=== PATIENT | female | born 1980 | race Caucasian/White ===

== ENCOUNTER 2019-04-23 13:33 | Emergency (ER) | payer MEDICAID, SELFPAY ==
[2019-04-23 13:55] VITALS: BP 136/116; PULSE 107; RESP 20; TEMP 37; O2SAT 99; BMI 33.6
[2019-04-23 14:56] LABS: Basophils % 0.6 %; Eosinophils # 0.1 10^3/uL (0.0-0.8); Eosinophils % 2.3 %; Hematocrit 40.7 % (37.0-47.0); Hemoglobin 12.4 g/dL (11.5-15.3); Lymphocytes # 1.6 10^3/uL (0.8-4.8); Lymphocytes % 31.2 %; Mean Corpuscular HGB Conc 30.5 g/dL (30.0-36.0); Mean Corpuscular Hemoglobin 25.4 pg (28.0-34.0); Mean Corpuscular Volume 83.4 fL (81-99); Mean Platelet Volume 10.4 fL (7.4-10.4); Monocytes # 0.3 10^3/uL (0.2-0.9); Monocytes % 6.2 %; Neutrophils # 3.1 10^3/uL (1.8-7.7); Neutrophils % 59.3 %; Nucleated Red Blood Cells % 0 %; Platelet Count 251 10^3/cmm (130-400); Red Blood Count 4.88 10^6/uL (4.1-5.3); Red Cell Distribution Width 14.7 % (12.1-15.1); White Blood Count 5.2 10^3/uL (4.0-10.0)
[2019-04-23 15:11] LABS: Alanine Aminotransferase 16 U/L (0-33); Albumin Level 4.4 g/dL (3.5-5.2); Alkaline Phosphatase 107 IU/L (35-105); Anion Gap 14.7 (5-19); Aspartate Amino Transferase 23 U/L (0-32); Blood Urea Nitrogen 7 mg/dL (6-20); Calcium 9.6 mg/Dl (8.6-10.0); Carbon Dioxide 26 mmol/L (22-29); Chloride 101 mmol/L (98-107); Globulin 3.6 g/dL (1.3-4.6); Glucose 99 mg/dL (74-109); Lipase 40 U/L (13-60); Potassium 3.7 mmol/L (3.5-5.1); Sodium 138 mmol/L (136-145); Total Bilirubin 0.2 mg/dL (0.15-1.2)
[2019-04-23 15:14] LABS: Add Urine Microscopic? YES; Bilirubin Urine Neg (NEGATIVE); Blood Urine 2+ (Negative); Glucose Urine UA Norm (Normal); Ketones Urine Negative (Negative); Leukocyte Esterase Urine Negative (Negative); Nitrate Urine Negative (Negative); Protein Urine Neg (Negative); Urine Appearance Clear (CLEAR); Urine Color Yellow (Yellow); Urobilinogen Urine Norm (Negative); pH Urine 5 (5-7)
[2019-04-23 15:21] LABS: Add Urine Culture? No; Bacteria Urine TRACE; RBC Urine 0-4 /hpf (0-2); Squamous Epithelial Cell Urine 0-4 (0-5)
--- NOTE | 2019-04-23 16:09 | ED_ITS ---
Entered by Kelsey Pacheco, acting as scribe for Ahsan Page DO Apr 23, 2019 13:33 HPI - Abdominal Pain General: Chief Complaint: Abdominal Pain Stated Complaint: abd pain Time Seen by Provider: 04/23/19 16:08 History of Present Illness: HPI narrative: 39 yo female presents with abd pain. Pt states that she has had pain since Monday, pt states that she couldn't eat anything. Pt states that she noticed that she has pain in the epigastric region. pt states that she ate some popcorn yesterday and felt like she had pressure when she ate in her throat. Pt states that she has a history of acid reflux. Pt states that she had an EGD done a few weeks ago, was diagnosed with hiatal hernia. Pt states that she hasn't eaten a real meal since Monday. Pt states that she had diarrhea yesterday, it was dark. MD elicited complaint: abdominal pain Pertinent past history: other (refulx) Onset (ago): day(s) (4 ) Pain Consistency: constant Location: Epigastric Severity: moderate Quality: sharp Radiation: none Exacerbating factors: eating Relieving factors: nothing Associated Symptoms: Reports diarrhea and nausea; Denies chills, dysuria and fever(s) Review of Systems General: Reports: 10 or more systems reviewed and unremarkable except in HPI and below Const: Reports: change in appetite; Denies: fever, chills, body aches, change in weight or fatigue Eyes: Denies: change in vision, blurry vision, blind spots or photophobia ENMT: Denies: throat pain, uvular edema, enlarged tonsils or painful swallowing Card: Denies: chest pain, palpitations or irregular heart rhythm Resp: Denies: shortness of breath, productive cough or non-productive cough GI: Reports: nausea and diarrhea : Denies: flank pain, difficulty urinating or painful urination Musc: Denies: neck pain, back pain, extremity pain or extremity swelling Skin/Breast: Denies: rash, itching, redness or sensitivity to light Neuro: Denies: headache, numbness in extremities or weakness in extremities Psych: Denies: anxiety, depression, mood swings or panic attacks Endo: Denies: excessive urination, excessive thirst, tired all the time or excessive sweating Jimmy/Lymph: Denies: easy bruising, easy bleeding or petechiae All/Imm: Denies: hives, throat swelling or tongue swelling PFSH ED PFSH: Statuses (acute, chronic, etc) shown below reflect problem list status as previously entered and may not be historically accurate Medical History Acid reflux (Acute) Hiatal hernia (Acute) Surgical History History of esophagogastroduodenoscopy (EGD) (Acute) Social History Smoking and tobacco status: never smoked Physical Exam Const: COMMON NORMALS: no apparent distress, average body habitus, oriented x3, no limitations, healthy appearing, alert and well nourished HENMT: COMMON NORMALS: normocephalic, head/scalp atraumatic, hearing grossly normal bilaterally, external ears normal, EAC's normal, TM's normal bilaterally, external nose normal, nasal mucous membranes and turbinates normal, moist oral mucous membranes, oropharynx normal, dentition normal and gingiva normal HEAD & SCALP: normocephalic and atraumatic NOSE: external nose normal and nasal mucous membranes and turbinates normal EXTERNAL EAR: Yes external ears normal EXTERNAL AUDITORY CANAL: EAC's normal TYMPANIC MEMBRANE: TM's normal bilaterally THROAT: no uvular edema Eye: COMMON NORMALS: PERRL, EOMs intact bilaterally, conjunctivae normal, no scleral icterus, no papilledema, normal visual garcia by confrontation and fundi normal bilaterally CONJUNCTIVA: Yes conjunctivae normal PUPIL: Yes PERRL DIRECT OPHTHALMOSCOPY: Yes no papilledema and Yes fundi normal bilaterally Neck/C-Spine: COMMON NORMALS: full ROM, no lymphadenopathy, supple, no meningeal signs, no JVD, thyroid normal and no carotid bruits THYROID: thyroid normal Chest: COMMONS NORMALS: inspection of chest normal and palpation of chest normal Resp: COMMON NORMALS: normal respiratory effort, no retractions, no use of accessory muscles, clear to auscultation bilaterally and percussion normal AUSCULTATION: clear to auscultation bilaterally PERCUSSION: percussion normal Cardio: COMMON NORMALS: no JVD, regular rate, regular rhythm, S1 normal heart sound, S2 normal heart sound, no gallops, no clicks, no murmurs, no rub and peripheral pulses 2+ throughout RATE: regular rate RHYTHM: regular rhythm HEART SOUNDS: S1 normal and S2 normal PERIPHERAL PULSES: pulses 2+ throughout GI: COMMON NORMALS: normal to inspection, nondistended, normoactive bowel sounds, soft to palpation, non-tender, no hepatosplenomegaly, no masses and no bruits PALPATION: Yes soft and Yes no hepatosplenomegaly : COMMON NORMALS: Yes no CVA tenderness and Yes external appearance normal BLADDER/KIDNEY EXAM: Yes no CVA tenderness Back/Pelvis: COMMON NORMALS: no CVA tenderness, thoracic and lumbar spine normal to inspection, no thoracic nor lumbar tenderness, thoraco-lumbar ROM normal and straight leg raise negative bilaterally Extremity: COMMON NORMALS: normal to inspection, full ROM, normal capillary refill, no joint enlargement, no clubbing, cyanosis or edema, no calf tenderness and no pedal edema Neuro: COMMON NORMALS: oriented x3 SENSORIUM/ORIENTATION: Yes alert MENINGEAL SIGNS: Yes no meningeal signs Skin: COMMON NORMALS: no rashes or lesions noted, no wounds, skin turgor normal, no jaundice, no petechiae and no mottling GENERAL SKIN EXAM: no rashes or lesions noted and turgor normal Course Vital Signs: Vital signs: Vital Signs Temperature 98.6 F 04/23/19 13:55 Pulse Rate 107 H 04/23/19 13:55 Respiratory Rate 20 H 04/23/19 13:55 Blood Pressure 136/116 04/23/19 13:55 Pulse Oximetry 99 04/23/19 13:55 MDM - Abdominal Pain Lab Data: Labs: Lab Results 04/23/19 04/23/19 04/23/19 Range/Units 14:32 14:48 14:48 WBC 5.2 (4.0-10.0) 10^3/ uL RBC 4.88 (4.1-5.3) 10^6/u L Hgb 12.4 (11.5-15.3) g/dL Hct 40.7 (37.0-47.0) % MCV 83.4 (81-99) fL MCH 25.4 L (28.0-34.0) pg MCHC 30.5 (30.0-36.0) g/dL RDW 14.7 (12.1-15.1) % Plt Count 251 (130-400) 10^3/c mm MPV 10.4 (7.4-10.4) fL Neut % (Auto) 59.3 % Lymph % (Auto) 31.2 % [place] % (Auto) 6.2 % Eos % (Auto) 2.3 % Baso % (Auto) 0.6 % Neut # (Auto) 3.1 (1.8-7.7) 10^3/u L Lymph # (Auto) 1.6 (0.8-4.8) 10^3/u L [place] # (Auto) 0.3 (0.2-0.9) 10^3/u L Eos # (Auto) 0.1 (0.0-0.8) 10^3/u L Baso # (Auto) 0.0 (0.0-0.1) 10^3/u L Nucleated RBC % (a uto) 0 % Nucleated RBCs # 0.0 /100WBC Sodium 138 (136-145) mmol/L Potassium 3.7 (3.5-5.1) mmol/L Chloride 101 (98-107) mmol/L Carbon Dioxide 26 (22-29) mmol/L Anion Gap 14.7 (5-19) BUN 7 (6-20) mg/dL Creatinine 0.9 (0.5-0.9) mg/dL GFR Calculation 69.0 L (90-130) mL/min Glucose 99 (74-109) mg/dL Calcium 9.6 (8.6-10.0) mg/Dl Total Bilirubin 0.2 (0.15-1.2) mg/dL AST 23 (0-32) U/L ALT 16 (0-33) U/L Alkaline Phosphata se 107 H (35-105) IU/L Total Protein 8.0 (6.6-8.7) g/dL Albumin 4.4 (3.5-5.2) g/dL Globulin 3.6 (1.3-4.6) g/dL Lipase 40 (13-60) U/L Urine Color Yellow (Yellow) Urine Appearance Clear (CLEAR) Urine pH 5 (5-7) Ur Specific Gravit y 1.020 (1.005-1.030) Urine Protein Neg (Negative) Urine Glucose (UA) Norm (Normal) Urine Ketones Negative (Negative) Urine Occult Blood 2+ H (Negative) Urine Nitrate Negative (Negative) Urine Bilirubin Neg (NEGATIVE) Urine Urobilinogen Norm (Negative) mg/dL Ur Leukocyte Melina ase Negative (Negative) Urine RBC 0-4 H (0-2) /hpf Urine WBC None (0-5) /hpf Ur Squamous Epith Cells 0-4 H (0-5) Urine Bacteria Trace (NONE) Discharge Plan Discharge Patient Disposition: Home, Self-Care Clinical Impression: Hiatal hernia Acid reflux Qualifiers: Esophagitis presence: with esophagitis Qualified Code(s): K21.0 - Gastro- esophageal reflux disease with esophagitis Gastritis Qualifiers: Gastritis type: unspecified gastritis Chronicity: chronic Gastritis bleeding: without bleeding Qualified Code(s): K29.50 - Unspecified chronic gastritis without bleeding Condition: Stable Prescriptions: New Carafate 100 mg/mL suspension 10 ml PO Q6H 56 Days Qty: 2240 RF: 0 Discharge Orders: Discharge Order (Routine); Ordered 04/23/19 Ordered By: Ahsan Page Referrals: Jose Fulton MD [Primary Care Provider] - Discharge Diet: As Directed Discharge Activity: Resume usual activity Patient Instructions: Hiatal Hernia (ED), Gastroesophageal Reflux Disease (ED) Coding Level of Care Code ED Communications Tower Climber for Chg Fwd Exam Problem Focused The documentation recorded by the Junior ordaz Kialy, accurately reflects the service I personally performed and the decisions made by Kaylee varela Donald P, DO Apr 23, 2019 13:33
--- NOTE | 2019-04-23 16:31 | PC.NURSE ---
Patient reports that she has had abdominal pain since Monday morning. Patient states that the pain is in the center upper abdomen. Patient reports some nausea with the abdominal pain. Patient denies all other symptoms.
[2019-04-23 16:33] VITALS: BP 118/83; PULSE 94; RESP 18; O2SAT 99
== END 2019-04-23 16:34 | disposition home or self-care (01) ==
PROVIDERS: Physician Assistant; Emergency Provider Family Medicine; PCP Internal Medicine
DX: K44.9 Diaphragmatic hernia without obstruction or gangrene (principal); K21.0 Gastro-esophageal reflux disease with esophagitis; K29.50 Unspecified chronic gastritis without bleeding
CPT/HCPCS: 36415; 80053; 81003; 83690; 85025; 99282

== ENCOUNTER → 2019-05-02 16:14 | Outpatient (BNVA) | payer SELFPAY | PROVIDERS: PCP Internal Medicine; Visit Provider Nurse Practitioner Family | DX: R39.9 Unspecified symptoms and signs involving the genitourinary system (principal) | CPT/HCPCS: 81001; 87077; 87086; 87186 ==

== ENCOUNTER → 2019-08-10 12:45 | Outpatient (BNVA) | payer OTHER, SELFPAY | PROVIDERS: PCP Internal Medicine; Visit Provider Nurse Practitioner Family | DX: M25.512 Pain in left shoulder (principal); M25.522 Pain in left elbow; S59.902A Unspecified injury of left elbow, initial encounter; X58.XXXA Exposure to other specified factors, initial encounter | CPT/HCPCS: 73030; 73080 ==

== ENCOUNTER 2022-01-10 19:09 | Emergency (ER) | payer OTHER, SELFPAY ==
[2022-01-10 19:19] VITALS: BP 117/78; PULSE 79; RESP 18; TEMP 36.8; O2SAT 97; BMI 38.4
--- NOTE | 2022-01-10 21:11 | ED_ITS ---
HPI - Wound/Laceration General: Chief Complaint: Wound/Laceration Stated Complaint: sent by PCP due to cyst Time Seen by Provider: 01/10/22 21:10 History of Present Illness: 41-year-old female comes in today for complaints of cyst to the left outer labia. Patient was seen at primary care's office and they were setting her up for [facility] [employer] [employer] treatment but also said that if it got uncontrollable pain she could come to the ER. Patient has not yet started antibiotics or any other treatment and just came to the ER for evaluation and treatment. Patient was prescribed antibiotics but does not know what antibiotics were. Patient appears nontoxic. Patient appears in mild to moderate pain. Associated symptoms: Denies fever(s) Review of Systems Const: Denies: fever(s) : Reports: other (Cyst to the left labia) [facility] ED PFSH: Medical History (Updated 01/10/22 @ 21:34 by MICHELLE Francisco) Acid reflux Hiatal hernia Surgical History (Updated 05/02/19 @ 15:22 by Hui Terrell LPN, RT) History of esophagogastroduodenoscopy (EGD) Family History (Updated 05/02/19 @ 15:23 by Hui Terrell LPN, RT) Father Cancer bladder, prostate Sister Cancer breast Social History Smoking and tobacco status: current every day smoker cigarettes Packs smoked per day: 1 Years cigarettes smoked: 20 Alcohol intake: current Alcohol intake frequency: holidays/special occasions only Adopted: No Caregiver/support person: No Lives independently: No Household members: significant other and family Housing: House Marital status: Single Number of children: 1 service: No Current occupational status: unemployed History of recent travel: No Current gender identity: Female Female Reproductive History: Date of last menstrual period: 12/15/21 Physical Exam Const: COMMON NORMALS: no acute distress HENMT: COMMON NORMALS: normocephalic HEAD & SCALP: normocephalic Neck/C-Spine: COMMON NORMALS: full ROM Resp: COMMON NORMALS: normal respiratory effort and clear to auscultation bilaterally AUSCULTATION: clear to auscultation bilaterally Cardio: COMMON NORMALS: regular rate RATE: regular rate : EXTERNAL FEMALE EXAM: Yes external swelling (Abscess noted to the outer labia on left side.) Extremity: COMMON NORMALS: normal to inspection Skin: COMMON NORMALS: no rashes or lesions noted GENERAL SKIN EXAM: no rashes or lesions noted Procedures Abscess I/D Site: other (Outer labia left side) Side (if applicable): left Local Anesthetic: lidocaine 2% Amount of anesthesia used (mL): 2 Technique: incised with #11 blade Amount of fluid expressed (mL): 2 Irrigation: Yes Packing used?: none Course Vital Signs: Vital signs: Vital Signs Temperature 98.2 F 01/10/22 19:19 Pulse Rate 79 01/10/22 19:19 Respiratory Rate 18 01/10/22 19:19 Blood Pressure 117/78 01/10/22 19:19 Pulse Oximetry 97 01/10/22 19:19 Oxygen Delivery Me thod 01/10/22 19:19 MDM - Wound/Laceration Medical Decision Making 41-year-old female comes in today with an abscess to the outer labia on the left side. On exam there is some mild swelling and induration to the tissue that is approximately 3 cm with a central 1 cm nodule. Differential diagnosis includes inclusion of cyst, abscess, cellulitis. Under local anesthetic a 1 cm incision was made with purulent drainage and mild bleeding from site. Patient tolerated well. Patient was treated for pain with fentanyl 50 mcg and 600 mg of clindamycin. Patient will be continued on hydrocodone for pain and oral antibiotics as prescribed from her primary care provider. Reviewed exam with patient with recommendations for follow-up. Patient reported understanding and agreed to plan. Discharge Plan Discharge Patient Disposition: Home Clinical Impression: Labial abscess Condition: Stable Prescriptions: New hydrocodone-acetaminophen 5-325 mg tablet 1 tab PO Q8H PRN (Reason: pain) Qty: 5 0RF No Action omeprazole 20 mg capsule,delayed release(DR/EC) 20 mg PO BID buspirone 15 mg tablet 15 mg PO BID Chantix Continuing Month Box 1 mg tablet 1 mg PO BID tizanidine [Zanaflex] 2 mg capsule 2 mg PO TID PRN (Reason: muscle spasticity) Qty: 14 0RF Discharge Orders: Discharge ED (Routine); Ordered 01/10/22 Ordered By: Jeremias Cueva Referrals: Jose Fulton MD [Primary Care Provider] - Discharge Diet: Usual diet Discharge Activity: Increase activity as tolerated Patient Instructions: Abscess Incision and Drainage (DC), Opioid Safety Activity Restrictions/Additional Instructions: Warm moist packs. Warm water soaks. Use the peripads to catch drainage. Drink plenty of water with antibiotic. Take antibiotic as directed until complete. Use acetaminophen and ibuprofen for pain. Use hydrocodone for severe pain. Follow-up with primary care as needed. Return to the ER for high fever greater than 100.4, inability to hold fluids down, or new concerns. Coding Level of Care Code ED Weed Thinner for Chg Fwd Exam Detailed
[2022-01-10] MEDS: clindamycin 600 MG/50 ML PREMIX 100 MG IV (21:15)
[2022-01-10] MEDS: fentaNYL 50 mcg/mL INJ 2mL IVP (21:15)
== END 2022-01-10 22:19 | disposition home or self-care (01) ==
PROVIDERS: Emergency Provider Nurse Practitioner Family; PCP Internal Medicine
DX: N76.4 Abscess of vulva (principal); F17.210 Nicotine dependence, cigarettes, uncomplicated
CPT/HCPCS: 56405; 96365; 96375; 99284; J3010; J3490

== ENCOUNTER 2022-02-19 17:40 | Emergency (ER) | payer OTHER, SELFPAY ==
[2022-02-19 18:08] VITALS: BP 144/94; PULSE 85; RESP 14; TEMP 37.2; O2SAT 95; BMI 38.0
--- NOTE | 2022-02-19 19:49 | ED_ITS ---
HPI - Female Genitourinary General: Chief complaint: Urogenital-Female Stated complaint: pain in the Vagina Time Seen by Provider: 02/19/22 19:19 History of Present Illness: Patient is a 42-year-old female comes to the ED with vaginal abscess. Patient was seen here for same complaint back on January 10. She states that over the past week she has developed an abscess on her right and left labia. She rates the pain currently a 10 out of 10. Left labia abscess is larger and more painful than the one on the right. Patient also reports tender red lesion on left thigh as well. Associated symptoms: Deny abdominal pain, headache(s) or nausea Date of Last Menstrual Period: 12/15/21 Review of Systems Const: Denies: fever(s), chills or fatigue Eyes: Denies: change in vision or eye discomfort ENMT: Denies: throat pain, odynophagia, nasal discharge or nasal congestion Card: Denies: chest pain, palpitations, edema, swelling of feet/ankles, dyspnea on exertion or orthopnea Resp: Denies: dyspnea, productive cough or non-productive cough GI: Denies: abdominal pain, nausea, vomiting, diarrhea, constipation or hematochezia : Reports: genital lesions (Vaginal abscess); Denies: flank pain, dysuria or hematuria Musc: Denies: neck pain, back pain or extremity swelling Skin/Breast: Denies: rash or new lesions Neuro: Denies: headache(s), numbness in extremities or weakness in extremities PFSH ED PFSH: Medical History Acid reflux Hiatal hernia Surgical History History of esophagogastroduodenoscopy (EGD) Family History Father Cancer bladder, prostate Sister Cancer breast Social History Smoking and tobacco status: current every day smoker cigarettes Packs smoked per day: 1 Years cigarettes smoked: 20 Alcohol intake: current Alcohol intake frequency: holidays/special occasions only Adopted: No Caregiver/support person: No Lives independently: No Household members: significant other and family Housing: House Marital status: Single Number of children: 1 service: No Current occupational status: unemployed History of recent travel: No Current gender identity: Female Female Reproductive History: Date of last menstrual period: 12/15/21 Physical Exam Const: COMMON NORMALS: no acute distress, patient oriented x3 and alert GENERAL APPEARANCE: cooperative HENMT: COMMON NORMALS: normocephalic HEAD & SCALP: normocephalic MOUTH: Normal oral and palatal mucosa present THROAT: posterior oropharynx normal and uvula midline Neck/C-Spine: COMMON NORMALS: supple GENERAL: Yes normal visual inspection Resp: COMMON NORMALS: normal respiratory effort, No retractions, No use of accessory muscles and clear to auscultation bilaterally AUSCULTATION: clear to auscultation bilaterally Cardio: COMMON NORMALS: regular rate, regular rhythm, S1 normal heart sound present, S2 normal heart sound present, No gallops present (Cardio), No clicks present (Cardio), No murmurs present (Cardio) and Peripheral pulses 2+ throughout RATE: regular rate RHYTHM: regular rhythm HEART SOUNDS: S1 normal heart sound present and S2 normal heart sound present PERIPHERAL PULSES: Peripheral pulses 2+ throughout GI: COMMON NORMALS: Normal to inspection, nondistended, normoactive bowel sounds present, Soft to palpation, non-tender and no masses PALPATION: Yes Soft to palpation : COMMON NORMALS: Yes no CVA tenderness BLADDER/KIDNEY EXAM: Yes no CVA tenderness OTHER: Patient has large left labial abscess that is superficial. Abscess is warm and tender and fluctuant. Right labia has a very small abscess. Left thigh?tender, warm and erythemic lesions. Nonfluctuant and indurated. Fin dings suggestive of cellulitis. Back/Pelvis: COMMON NORMALS: no CVA tenderness Extremity: COMMON NORMALS: normal to inspection Neuro: COMMON NORMALS: patient oriented x3 SENSORIUM/ORIENTATION: Yes alert GAIT: Yes Normal gait present Skin: GENERAL SKIN EXAM: dry skin Procedures Abscess I/D Site: other (Left and right labia) Sedation/analgesia: other (Patient was given a dose of Dilaudid before procedure.) Local Anesthetic: lidocaine 1% Amount of anesthesia used (mL): 3 Technique: incised with #11 blade Amount of fluid expressed (mL): 1 Irrigation: Yes Packing used?: none Course Vital Signs: Vital signs: Vital Signs Temperature 98.2 F 02/19/22 23:51 Pulse Rate 91 02/19/22 23:51 Respiratory Rate 17 02/19/22 23:51 Blood Pressure 128/84 02/19/22 23:51 Pulse Oximetry 97 02/19/22 23:51 Oxygen Delivery Me thod 02/19/22 18:08 MDM - Female Medical Decision Making Patient is a 42-year-old female comes to the ED with vaginal abscess. CBC unremarkable sodium was 128 potassium 3.3. She was given 1 L of IV fluids and p.o. potassium. Lidocaine 1% was used as local and patient was given some IV Dilaudid to help with pain before procedure as well. I&D was performed patient was given IV antibiotics here as well. She is stable for discharge home and diagnosed with vaginal abscess and hyponatremia told to follow-up with her PCP within the next couple days for reevaluation and to have sodium level rechecked.. She was sent with a prescription for Bactrim and hydrocodone for pain. Return to ED precautions given. Patient is to agree with plan. Lab Data I reviewed the patient's lab results. 02/19/22 20:33 02/19/22 20:33 Laboratory Results WBC 8.0 10^3/uL (4.0-10.0) 02/19/22 20:33 RBC 4.53 10^6/uL (4.1-5.3) 02/19/22 20:33 Hgb 14.1 g/dL (11.5-15.3) 02/19/22 20:33 Hct 42.4 % (37.0-47.0) 02/19/22 20: MCV 93.6 fl (81-99) 02/19/22 20:33 MCH 31.1 pg (28.0-34.0) 02/19/22 20:33 MCHC 33.3 g/dL (30.0-36.0) 02/19/22 20:33 RDW 12.0 % (12.1-15.1) L 02/19/22 20:33 Plt Count 200 10^3/cmm (130-400) 02/19/22 20:33 MPV 10.3 fL (7.4-10.4) 02/19/22 20:33 Neut % (Auto) 72.5 % 02/19/22 20:33 Lymph % (Auto) 20.0 % 02/19/22 20:33 [place] % (Auto) 6.3 % 02/19/22 20:33 Eos % (Auto) 0.6 % 02/19/22 20:33 Baso % (Auto) 0.5 % 02/19/22 20:33 Neut # (Auto) 5.82 10^3/uL (1.8-7.7) 02/19/22 20:33 Lymph # (Auto) 1.6 10^3/uL (0.8-4.8) 02/19/22 20:33 [place] # (Auto) 0.5 10^3/uL (0.2-0.9) 02/19/22 20:33 Eos # (Auto) 0.1 10^3/uL (0.0-0.8) 02/19/22 20: Baso # (Auto) 0.0 10^3/uL (0.0-0.1) 02/19/22 20:33 Nucleated RBC % (auto) 0 % 02/19/22 20:33 Nucleated RBCs # 0.0 /100WBC 02/19/22 20:33 Sodium 128 mmol/L (136-145) L 02/19/22 20:33 Potassium 3.3 mmol/L (3.5-5.1) L 02/19/22 20:33 Chloride 93 mmol/L (98-107) L 02/19/22 20:33 Carbon Dioxide 26 mmol/L (22-29) 02/19/22 20:33 Anion Gap 12.3 (5-19) 02/19/22 20:33 BUN 9 mg/dL (6-20) 02/19/22 20:33 Creatinine 0.6 mg/dL (0.5-0.9) 02/19/22 20:33 GFR Calculation 108.6 mL/min (90-130) 02/19/22 20:33 Glucose 92 mg/dL (65-115) 02/19/22 20:33 Calculated Osmolality 264 mOsm/kg (285-295) L 02/19/22 20:33 Calcium 9.2 mg/dL (8.5-10.5) 02/19/22 20:33 Total Bilirubin 0.4 mg/dL (0.15-1.2) 02/19/22 20:33 AST 15 U/L (0-32) 02/19/22 20:33 ALT 12 U/L (0-33) 02/19/22 20:33 Alkaline Phosphatase 109 U/L (35-105) H 02/19/22 20:33 Total Protein 7.5 g/dL (6.6-8.7) 02/19/22 20:33 Albumin 4.0 g/dL (3.5-5.2) 02/19/22 20:33 Globulin 3.5 g/dL (1.3-4.6) 02/19/22 20:33 Discharge Plan Discharge Patient Disposition: Home Clinical Impression: Labial abscess, Hyponatremia Cellulitis Qualifiers: Site of cellulitis: extremity Site of cellulitis of extremity: lower extremity Laterality: left Qualified Code(s): L03.116 - Cellulitis of left lower limb Condition: Stable Prescriptions: New Bactrim DS 800-160 mg tablet 1 tab PO BID 10 Days Qty: 20 0RF No Action omeprazole 20 mg capsule,delayed release(DR/EC) 20 mg PO BID buspirone 15 mg tablet 15 mg PO BID Chantix Continuing Month Box 1 mg tablet 1 mg PO BID tizanidine [Zanaflex] 2 mg capsule 2 mg PO TID PRN (Reason: muscle spasticity) Qty: 14 0RF hydrocodone-acetaminophen 5-325 mg tablet 1 tab PO Q8H PRN (Reason: pain) Qty: 5 0RF Discharge Orders: Discharge ED (Routine); Ordered 02/19/22 Ordered By: Benji Hauser Referrals: Jose Fulton MD [Primary Care Provider] - Discharge Diet: Regular Discharge Activity: Resume usual activity Patient Instructions: Cellulitis (ED), Abscess (ED), Opioid Safety Activity Restrictions/Additional Instructions: Follow-up with medical provider as directed. The next 5 to 7 days for reevaluation. Take medications as prescribed. Return to the ER or your medical provider if condition worsens. Please read and understand discharge instructions. Thank you for choosing [facility] for your healthcare needs today. Please realize this is an emergency room and that we are providing you with a medical screening exam and this may not be complete and all inclusive of all the testing and or work up that you may need to determine your ailment or severity of your illness. It is very important that you follow up as instructed or that you return to the Emergency Department should you have concerns or if your condition changes or worsens in any way. Coding Level of Care Code ED Surgery Tech for Stephany Sanders Exam Comprehensive
[2022-02-19 20:31] VITALS: RESP 20; O2SAT 98
[2022-02-19] MEDS: ondansetron 2 mg/ML SDV 2 mL 4 MG IVP (20:31)
[2022-02-19] MEDS: HYDROmorphone 1 mg/mL INJ 1 mL IVP (20:31)
[2022-02-19 20:42] LABS: Basophils % 0.5 %; Eosinophils # 0.1 10^3/uL (0.0-0.8); Eosinophils % 0.6 %; Hematocrit 42.4 % (37.0-47.0); Hemoglobin 14.1 g/dL (11.5-15.3); Lymphocytes # 1.6 10^3/uL (0.8-4.8); Mean Corpuscular HGB Conc 33.3 g/dL (30.0-36.0); Mean Corpuscular Hemoglobin 31.1 pg (28.0-34.0); Mean Corpuscular Volume 93.6 fl (81-99); Mean Platelet Volume 10.3 fL (7.4-10.4); Monocytes # 0.5 10^3/uL (0.2-0.9); Monocytes % 6.3 %; Neutrophils # 5.82 10^3/uL (1.8-7.7); Neutrophils % 72.5 %; Nucleated Red Blood Cells % 0 %; Platelet Count 200 10^3/cmm (130-400); Red Blood Count 4.53 10^6/uL (4.1-5.3)
[2022-02-19 21:00] LABS: Alanine Aminotransferase 12 U/L (0-33); Alkaline Phosphatase 109 U/L (35-105); Anion Gap 12.3 (5-19); Aspartate Amino Transferase 15 U/L (0-32); Blood Urea Nitrogen 9 mg/dL (6-20); Calcium 9.2 mg/dL (8.5-10.5); Carbon Dioxide 26 mmol/L (22-29); Chloride 93 mmol/L (98-107); Globulin 3.5 g/dL (1.3-4.6); Glomerular Filtration Rate 108.6 mL/min (90-130); Glucose 92 mg/dL (65-115); Osmolality Calculated 264 mOsm/kg (285-295); Potassium 3.3 mmol/L (3.5-5.1); Sodium 128 mmol/L (136-145); Total Bilirubin 0.4 mg/dL (0.15-1.2); Total Protein 7.5 g/dL (6.6-8.7)
[2022-02-19] MEDS: cefTRIAXone 1,000 MG in sodium chloride 0.9% (plus) 50 ML 100 MG IV (22:15)
[2022-02-19] MEDS: sodium chloride 0.9% 1,000 ML 999 ML IV (22:16)
[2022-02-19] MEDS: potassium chloride ER 20 mEq Tablet PO (22:38)
[2022-02-19] MEDS: HYDROcodone-acetaminophen 5-325 mg Tablet 2 TAB PO (23:50)
[2022-02-19 23:51] VITALS: BP 128/84; PULSE 91; RESP 17; TEMP 36.8; O2SAT 97
== END 2022-02-19 23:53 | disposition home or self-care (01) ==
PROVIDERS: Emergency Provider Physician Assistant; PCP Internal Medicine
DX: N76.4 Abscess of vulva (principal); L03.116 Cellulitis of left lower limb; E87.1 Hypo-osmolality and hyponatremia; F17.210 Nicotine dependence, cigarettes, uncomplicated
CPT/HCPCS: 56405; 80053; 85025; 87070; 87075; 87077; 87186; 87205; 96361; 96365; 96375; 99284; J0696; J1170; J2405; J7030

== ENCOUNTER 2022-04-11 22:33 | Emergency (ER) | payer OTHER, MEDICAID, SELFPAY ==
[2022-04-11 22:37] VITALS: BP 124/89; PULSE 83; RESP 18; TEMP 37.1; O2SAT 97; BMI 39.4
[2022-04-12] MEDS: LORazepam 1 mg Tablet PO (00:55)
--- NOTE | 2022-04-12 00:56 | W.ED.SKABFB ---
HPI - Skin/Abscess/Foreign Bdy General: Chief complaint: Skin/Abscess/Foreign Body Stated complaint: abscess Time Seen by Provider: 04/11/22 22:56 Source: patient Mode of arrival: ambulatory Limitations: no limitations History of Present Illness: Patient presents emergency department today for evaluation treatment of recurrent labial abscess. Patient states she noticed a couple days ago it seemed to be getting irritated and sore so, patient states she wore boxer shorts yesterday and took it easy to prevent excessive rubbing and irritation. However, patient went to work this afternoon and, while trying to work noticed increased tenderness and pain in the area and came in for evaluation. Patient states she has dealt with this in the past. Chart review shows that she has had to have incision and drainage of labial abscess in January in February 2022. Each time, does appear that the patient has to have more intervention to keep her calm and to address her pain. Last evaluation here in the ER patient received IV Dilaudid and she indicated she was still yelling and crying due to discomfort. Review of Systems General: Reports: 10 or more systems reviewed and unremarkable except in HPI and below : Reports: other (Labial swelling, labial tenderness, recurrent labial abscess) PFSH ED PFSH: Medical History Acid reflux Hiatal hernia Surgical History History of esophagogastroduodenoscopy (EGD) Family History Father Cancer bladder, prostate Sister Cancer breast Social History Smoking and tobacco status: current every day smoker cigarettes Packs smoked per day: 1 Years cigarettes smoked: 20 Alcohol intake: current Alcohol intake frequency: holidays/special occasions only Adopted: No Caregiver/support person: No Lives independently: No Household members: significant other and family Housing: House Marital status: Single Number of children: 1 service: No Current occupational status: unemployed History of recent travel: No Current gender identity: Female Female Reproductive History: Date of last menstrual period: 04/11/22 Physical Exam Const: COMMON NORMALS: average body habitus, patient oriented x3 and alert; apparent distress (Patient is extremely anxious and also emotional) HENMT: COMMON NORMALS: normocephalic, atraumatic, hearing grossly normal bilaterally and moist oral mucous membranes HEAD & SCALP: normocephalic and atraumatic Eye: COMMON NORMALS: Equal, round and reactive pupils present, EOMs intact bilaterally and conjunctivae normal CONJUNCTIVA: Yes conjunctivae normal PUPIL: Yes Equal, round and reactive pupils present Neck/C-Spine: COMMON NORMALS: no JVD Lymph: LYMPHATIC: no lymphadenopathy noted Resp: COMMON NORMALS: normal respiratory effort, No retractions and No use of accessory muscles Cardio: COMMON NORMALS: no JVD and regular rate RATE: regular rate : OTHER: Patient has obvious swelling of the left labia majora with findings of abscess to the superior portion. There is erythema present. No signs of any active draining. Extremity: COMMON NORMALS: normal to inspection, full ROM and capillary refill normal Neuro: COMMON NORMALS: patient oriented x3 SENSORIUM/ORIENTATION: Yes alert Psych: COMMON NORMALS: mental status grossly normal, cooperative, normal affect, speech normal and activity/motor behavior normal SPEECH: Yes normal speech Course Vital Signs: Vital signs: Vital Signs Temperature 98.7 F 04/11/22 22:37 Pulse Rate 69 04/12/22 01:41 Respiratory Rate 16 04/12/22 01:41 Blood Pressure 124/81 04/12/22 01:41 Pulse Oximetry 97 04/12/22 01:41 Oxygen Delivery Me thod 04/11/22 22:37 MDM - Skin/Abscess/Foreign Bdy Medicial Decision Making Patient presented to the emergency department today for evaluation treatment of return of labial abscess. Patient's examination confirms labial abscess versus Bartholin gland cyst. While the majority of the labia is erythematous and indurated, there is a small area of fluctuance. Patient is extremely anxious. Patient is aware of the process and what the procedure entails. She is requesting preprocedural medication. Discussed with Dr. Villeda that the patient may benefit from some pain medicine but, would most likely benefit more from an anxiolytic. He agreed with treatment for patient involving p.o. Ativan and IV pain meds. IV pain medication was given just a couple minutes prior to procedure. Patient tolerated her procedure and purulent material was able to be drained from the left labia. Wound culture was obtained to further evaluate the patient's recurrent infections. Patient had previously been treated with clindamycin and Bactrim. We will start treatment with doxycycline tonight. I have also asked for a referral to general surgery be placed on the patient's behalf as this could likely be a recurrent cystic infection and patient could benefit from cyst removal should examination confirmed the presence of a cyst and cyst wall. Patient has antibiotic sent to the pharmacy to be continued in the morning. Return precautions given and she is to watch for any change or worsening in condition. Differential Diagnosis Likely abscess of skin or subcutaneous tissue; Unlikely cellulitis, insect bites or contact dermatitis Discharge Plan Discharge Patient Disposition: Home Clinical Impression: Abscess of left genital labia Condition: Stable Prescriptions: New doxycycline hyclate 100 mg tablet 100 mg PO BID 10 Days Qty: 20 0RF No Action omeprazole 20 mg capsule,delayed release(DR/EC) 20 mg PO BID buspirone 15 mg tablet 15 mg PO BID Chantix Continuing Month Box 1 mg tablet 1 mg PO BID tizanidine [Zanaflex] 2 mg capsule 2 mg PO TID PRN (Reason: muscle spasticity) Qty: 14 0RF hydrocodone-acetaminophen 5-325 mg tablet 1 tab PO Q8H PRN (Reason: pain) Qty: 5 0RF Discharge Orders: Discharge ED (Routine); Ordered 04/12/22 Ordered By: Alexa Thomas Referrals: Jose Fulton MD [Primary Care Provider] - Discharge Diet: Usual diet Discharge Activity: Increase activity as tolerated Patient Instructions: Abscess (ED) Activity Restrictions/Additional Instructions: We were able to incise and drain the abscess that was forming again on your left labia. We have obtained a specimen of the infection and are sending it to the lab to be cultured over the next 48 to 72 hours. This can help confirm the bacterial cause of the recurrence of this infection and also assures proper antibiotic therapy. I have sent a request on your behalf for follow-up through general surgery to discuss the possibility of recurrent labial cyst which could be removed to prevent further recurrence of infection and abscess. Closely monitor for any change or worsening in your condition. 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 Coding Level of Care Code ED Account Receivable Clerk for Stephany Fwd Exam Comprehensive
[2022-04-12 01:10] VITALS: RESP 18
[2022-04-12] MEDS: fentaNYL 50 mcg/mL INJ 2mL IVP (01:10)
[2022-04-12] MEDS: lidocaine 1% INJ 10 mL (per mL) 3 ML INTRADERMA (01:24)
[2022-04-12] MEDS: doxycycline 100 mg Tablet PO (01:32)
[2022-04-12 01:41] VITALS: BP 124/81; PULSE 69; RESP 16; O2SAT 97
--- NOTE | 2022-04-12 09:19 | DCPLANNER ---
Addendum entered by Nichole Boone 06/15/22 08:27: Patient had a follow up appointment scheduled with [facility] - patient did attend appointment Addendum entered by Nichole Boone 04/13/22 10:29: Patient has a followup appointment scheduled for Tuesday, June 14, 2022 at 8:[address] Gan at [facility]. Clinic will call patient with appointment information. Addendum entered by Nichole Boone 04/12/22 11:10: manager search engine received a message from general surgery to refer patient to [facility]. manager search engine sent patients information to the front office staff at [facility]. Patients information will be printed and reviewed. Clinic will call patient with appointment information. Original Note: manager search engine had message to schedule a follow up appointment for patient with general surgery. manager search engine sent patients information to the front office staff at general surgery. Patients information will be printed and reviewed. Clinic will call patient with appointment information.
--- NOTE | 2022-04-14 22:16 | PC.NURSE ---
Positive wound culture result given to Dr. Villeda. Doctor is review chart and results at this time.
== END 2022-04-12 01:42 | disposition home or self-care (01) ==
PROVIDERS: Emergency Provider Physician Assistant; PCP Internal Medicine
DX: N76.4 Abscess of vulva (principal); F17.210 Nicotine dependence, cigarettes, uncomplicated
CPT/HCPCS: 87070; 87077; 87186; 96374; 99284; J3010

== ENCOUNTER 2022-08-03 20:17 | Emergency (ER) | payer OTHER, MEDICAID, SELFPAY ==
--- NOTE | 2022-08-03 20:20 | ECG_ITS ---
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 Measurements Intervals Roann Rate: 72 P: 18 SC: 145 QRS: 23 QRSD: 89 T: 34 QT: 399 QTc: 437 Interpretive Statements SINUS RHYTHM LOW QRS VOLTAGE IN PRECORDIAL LEADS [QRS DEFLECTION < 1.0 mV IN CHEST LEADS] No previous ECG available for comparison Electronically Signed On 08-04-2022 21:19:12 CDT by Jah Grey M.D. [id number]
--- NOTE | 2022-08-03 20:21 | XRR_ITS ---
PROCEDURE INFORMATION: Exam: XR Chest Exam date and time: 08/03/2022 8:41 PM Age: 42 years old Clinical indication: Shortness of breath; Additional info: SOB TECHNIQUE: Imaging protocol: Radiologic exam of the chest. Views: 1 view. COMPARISON: CR XR chest 2V* [id number] 02/10/2019 9:10 PM FINDINGS: Lungs: Interval resolution of right middle lobe atelectasis/pneumonia from prior exam of 2019. No significant change otherwise. No consolidation. Pleural spaces: Unremarkable. No pleural effusion. No pneumothorax. Heart/Mediastinum: Unremarkable. No cardiomegaly. Bones/joints: Unremarkable. XR/XR chest 1V portable [id number] IMPRESSION: No acute cardiopulmonary abnormality.
[2022-08-03 20:35] VITALS: BP 137/82; PULSE 86; RESP 16; TEMP 37.2; O2SAT 97; BMI 36.1
[2022-08-03 20:37] VITALS: BP 171/103; PULSE 70; RESP 18; O2SAT 96
[2022-08-03 21:26] LABS: Basophils % 0.8 %; Eosinophils # 0.2 10^3/uL (0.0-0.8); Eosinophils % 3.1 %; Hematocrit 40.8 % (37.0-47.0); Hemoglobin 13.1 g/dL (11.5-15.3); Lymphocytes # 1.5 10^3/uL (0.8-4.8); Lymphocytes % 29.5 %; Mean Corpuscular HGB Conc 32.1 g/dL (30.0-36.0); Mean Corpuscular Volume 93.4 fl (81-99); Mean Platelet Volume 10.1 fL (7.4-10.4); Monocytes # 0.5 10^3/uL (0.2-0.9); Monocytes % 9.2 %; Neutrophils # 2.91 10^3/uL (1.8-7.7); Neutrophils % 57.2 %; Nucleated Red Blood Cells % 0 %; Platelet Count 204 10^3/cmm (130-400); Red Blood Count 4.37 10^6/uL (4.1-5.3); Red Cell Distribution Width 12.7 % (12.1-15.1); White Blood Count 5.1 10^3/uL (4.0-10.0)
[2022-08-03 21:44] VITALS: O2SAT 97
[2022-08-03 21:53] LABS: INR 1.02 (0.8-1.2)
[2022-08-03 22:10] LABS: SARS Covid-2 Antigen negative (Negative)
[2022-08-03] MEDS: dexamethasone 10 mg/mL INJ IM (22:10)
[2022-08-03 22:12] LABS: Alanine Aminotransferase 15 U/L (0-33); Albumin Level 4.1 g/dL (3.5-5.2); Alkaline Phosphatase 79 U/L (35-105); Anion Gap 12.4 (5-19); Aspartate Amino Transferase 17 U/L (0-32); Blood Urea Nitrogen 11 mg/dL (6-20); Calcium 8.9 mg/dL (8.5-10.5); Carbon Dioxide 27 mmol/L (22-29); Chloride 105 mmol/L (98-107); Globulin 2.8 g/dL (1.3-4.6); Glomerular Filtration Rate 90.9 mL/min (90-130); Glucose 97 mg/dL (65-115); NT Pro B Type Natriuretic Pept 91 pg/mL (0-125); Osmolality Calculated 289 mOsm/kg (285-295); Potassium 4.4 mmol/L (3.5-5.1); Sodium 140 mmol/L (136-145); Total Bilirubin 0.2 mg/dL (0.15-1.2); Total Protein 6.9 g/dL (6.6-8.7)
--- NOTE | 2022-08-03 22:21 | W.ED.COVID ---
HPI - COVID General: Chief Complaint: COVID symptoms Stated Complaint: sick sob Time Seen by Provider: 08/03/22 21:54 Source: patient Mode of arrival: ambulatory Limitations: no limitations History of Present Illness: 42-year-old female who states over the last 3 days she has had cough congestion a lot of sinus drainage and a scratchy throat. She denies any fever she denies any shortness of breath her sinus drainage has been clear. She denies any worsening improving factors she is in no distress. She denies any pain. COVID 19 common symptoms: positive non-productive cough and body aches; negative fever(s), chills, dyspnea, headache(s), throat pain, nausea, vomiting or diarrhea COVID 19 other sytmptoms: negative chest pain COVID Results: SARS-CoV-2 Antigen (Rapid) negative (Negative) 08/03/22 21:47 Review of Systems Const: Reports: body aches and change in appetite; Denies: fever(s) or chills Eyes: Denies: blurry vision or eye discomfort ENMT: Denies: throat pain or dental pain Card: Denies: chest pain Resp: Reports: non-productive cough; Denies: dyspnea GI: Denies: abdominal pain, nausea, vomiting or diarrhea : Denies: dysuria Musc: Denies: neck pain or back pain Skin/Breast: Denies: rash Neuro: Denies: headache(s) PFSH ED PFSH: Medical History Acid reflux Hiatal hernia Surgical History History of esophagogastroduodenoscopy (EGD) Family History Father Cancer bladder, prostate Hypertension Diabetes Sister Cancer breast Mother Stroke Social History Smoking and tobacco status: former smoker Alcohol intake: current Alcohol intake frequency: holidays/special occasions only Substance/Drug Use: never Adopted: No Caregiver/support person: No Lives independently: No Household members: significant other and family Housing: House Marital status: Single Number of children: 1 service: No Current occupational status: unemployed Current gender identity: Female Physical Exam Const: COMMON NORMALS: no acute distress, patient oriented x3 and healthy appearing HENMT: COMMON NORMALS: normocephalic and atraumatic HEAD & SCALP: normocephalic and atraumatic Eye: COMMON NORMALS: Equal, round and reactive pupils present and EOMs intact bilaterally PUPIL: Yes Equal, round and reactive pupils present Neck/C-Spine: COMMON NORMALS: full ROM and supple Chest: COMMONS NORMALS: normal inspection of the chest and normal palpation of entire chest wall Resp: COMMON NORMALS: normal respiratory effort, No retractions, No use of accessory muscles and clear to auscultation bilaterally AUSCULTATION: clear to auscultation bilaterally Cardio: COMMON NORMALS: regular rate, regular rhythm and No murmurs present (Cardio) RATE: regular rate RHYTHM: regular rhythm GI: COMMON NORMALS: Normal to inspection, nondistended, normoactive bowel sounds present, Soft to palpation, non-tender and no masses PALPATION: Yes Soft to palpation Extremity: COMMON NORMALS: normal to inspection and full ROM Neuro: COMMON NORMALS: patient oriented x3, moves all extremities and no focal motor deficits Psych: COMMON NORMALS: mental status grossly normal, Normal thought process present and cooperative THOUGHT PROCESS: Normal thought process present Skin: COMMON NORMALS: no rashes or lesions noted and no wounds GENERAL SKIN EXAM: no rashes or lesions noted Course Vital Signs: Vital signs: Vital Signs Temperature 98.9 F 08/03/22 20:35 Pulse Rate 70 08/03/22 20:37 Respiratory Rate 18 08/03/22 20:37 Blood Pressure 171/103 08/03/22 20:37 Pulse Oximetry 97 08/03/22 21:44 Oxygen Delivery Me thod Room Air 08/03/22 21:44 MDM - COVID Medical Decision Making Patient presents with cough congestion some sinus drainage likely allergies or viral upper restaurant infection no signs of pneumonia COVID was negative did give her a shot of Decadron she is stable for discharge she is to follow-up with PCP and return if worsening. Differential Diagnosis Unlikely pneumonia, copd exacerbation, pulmonary embolism, NSTEMI/STEMI or CHF exacerbation Lab Data I reviewed the patient's lab results. 08/03/22 21:00 08/03/22 21:00 Radiology Impressions Chest X-Ray 08/03/22 20:21 IMPRESSION: No acute cardiopulmonary abnormality. Laboratory Results WBC 5.1 10^3/uL (4.0-10.0) 08/03/22 21:00 RBC 4.37 10^6/uL (4.1-5.3) 08/03/22 21:00 Hgb 13.1 g/dL (11.5-15.3) 08/03/22 21:00 Hct 40.8 % (37.0-47.0) 08/03/22 21:00 MCV 93.4 fl (81-99) 08/03/22 21:00 MCH 30.0 pg (28.0-34.0) 08/03/22 21:00 MCHC 32.1 g/dL (30.0-36.0) 08/03/22 21:00 RDW 12.7 % (12.1-15.1) 08/03/22 21:00 Plt Count 204 10^3/cmm (130-400) 08/03/22 21:00 MPV 10.1 fL (7.4-10.4) 08/03/22 21:00 Neut % (Auto) 57.2 % 08/03/22 21:00 Lymph % (Auto) 29.5 % 08/03/22 21:00 [place] % (Auto) 9.2 % 08/03/22 21:00 Eos % (Auto) 3.1 % 08/03/22 21:00 Baso % (Auto) 0.8 % 08/03/22 21:00 Neut # (Auto) 2.91 10^3/uL (1.8-7.7) 08/03/22 21:00 Lymph # (Auto) 1.5 10^3/uL (0.8-4.8) 08/03/22 21:00 [place] # (Auto) 0.5 10^3/uL (0.2-0.9) 08/03/22 21:00 Eos # (Auto) 0.2 10^3/uL (0.0-0.8) 08/03/22 21:00 Baso # (Auto) 0.0 10^3/uL (0.0-0.1) 08/03/22 21:00 Nucleated RBC % (auto) 0 % 08/03/22 21:00 Nucleated RBCs # 0.0 /100WBC 05/03/23 21:00 PT 13.70 SECONDS (12.1-14.9) 08/03/22 21:00 INR 1.02 (0.8-1.2) 08/03/22 21:00 Sodium 140 mmol/L (136-145) 08/03/22 21:00 Potassium 4.4 mmol/L (3.5-5.1) 08/03/22 21:00 Chloride 105 mmol/L (98-107) 08/03/22 21:00 Carbon Dioxide 27 mmol/L (22-29) 08/03/22 21:00 Anion Gap 12.4 (5-19) 08/03/22 21:00 BUN 11 mg/dL (6-20) 08/03/22 21:00 Creatinine 0.7 mg/dL (0.5-0.9) 08/03/22 21:00 GFR Calculation 90.9 mL/min (90-130) 08/03/22 21:00 Glucose 97 mg/dL (65-115) 08/03/22 21:00 Calculated Osmolality 289 mOsm/kg (285-295) 08/03/22 21:00 Calcium 8.9 mg/dL (8.5-10.5) 08/03/22 21:00 Total Bilirubin 0.2 mg/dL (0.15-1.2) 08/03/22 21:00 AST 17 U/L (0-32) 08/03/22 21:00 ALT 15 U/L (0-33) 08/03/22 21:00 Alkaline Phosphatase 79 U/L (35-105) 08/03/22 21:00 NT-Pro-B Natriuret Pep 91 pg/mL (0-125) 08/03/22 21:00 Total Protein 6.9 g/dL (6.6-8.7) 08/03/22 21:00 Albumin 4.1 g/dL (3.5-5.2) 08/03/22 21:00 Globulin 2.8 g/dL (1.3-4.6) 08/03/22 21:00 SARS-CoV-2 Ag (Rapid) negative (Negative) 08/03/22 21:47 SARS-CoV-2 Antigen (Rapid) negative (Negative) 08/03/22 21:47 Discharge Plan Discharge Patient Disposition: Home Clinical Impression: Upper respiratory infection Condition: Stable Prescriptions: No Action omeprazole 20 mg capsule,delayed release(DR/EC) 20 mg PO BID buspirone 15 mg tablet 30 mg PO TID tizanidine [Zanaflex] 2 mg capsule 2 mg PO TID PRN (Reason: muscle spasticity) Qty: 14 0RF ropinirole 0.5 mg tablet 0.5 mg PO BID metoprolol succinate 25 mg tablet extended release 24 hr 25 mg PO DAILY levothyroxine 50 mcg capsule 50 mcg PO DAILY acetaminophen 500 mg capsule 500 mg PO Q6H PRN zolpidem 10 mg tablet PO escitalopram oxalate 10 mg tablet 10 mg PO DAILY melatonin 10 mg capsule 10 mg PO DAILY nystatin 100,000 unit/gram powder 1 applic topical BID mupirocin 2 % ointment 1 applic topical BID methocarbamol 750 mg tablet 750 mg PO TID hydrocodone-acetaminophen 5-325 mg tablet 1 tab PO Q8H PRN (Reason: pain) Qty: 5 0RF Discharge Orders: Discharge ED (Routine); Ordered 08/03/22 Ordered By: Cuauhtemoc Wayne Referrals: Jose Fulton MD [Primary Care Provider] - 1-3 days Discharge Diet: Advance as tolerated Discharge Activity: Resume usual activity Patient Instructions: Upper Respiratory Infection (ED) Coding Level of Care Code ED Environmental Field Team Member for Stephany Sanders
[2022-08-03 22:36] VITALS: BP 168/96; PULSE 72; RESP 20; O2SAT 99
== END 2022-08-03 22:40 | disposition home or self-care (01) ==
PROVIDERS: Emergency Provider Emergency Medicine; PCP Internal Medicine
DX: J06.9 Acute upper respiratory infection, unspecified (principal); Z20.822 Contact with and (suspected) exposure to COVID-19; Z87.891 Personal history of nicotine dependence
CPT/HCPCS: 36415; 71045; 80053; 83880; 85025; 85610; 87426; 93005; 96372; 99285; J1100

== ENCOUNTER 2022-10-08 22:16 | Emergency (ER) | payer OTHER, MEDICAID, SELFPAY ==
[2022-10-08 22:21] VITALS: BP 127/86; PULSE 74; RESP 18; TEMP 36.8; O2SAT 95; BMI 34.7
[2022-10-08 22:31] VITALS: PULSE 80; RESP 18; O2SAT 99
--- NOTE | 2022-10-08 22:50 | XRR_ITS ---
PROCEDURE INFORMATION: Exam: XR Left Foot Exam date and time: 10/08/2022 11:06 PM Age: 42 years old Clinical indication: Injury or trauma; Fall; Blunt trauma; Foot; Left; Additional info: Fall injury TECHNIQUE: Imaging protocol: Radiologic exam of the left foot. Views: 3 or more views. COMPARISON: No relevant prior studies available. FINDINGS: Bones/joints: No evidence of acute fracture or dislocation. No erosive disease. No significant degenerative change. Soft tissues: Normal. XR/XR foot LT min 3V* [id number] IMPRESSION: No acute bony injury.
--- NOTE | 2022-10-08 22:50 | XRR_ITS ---
PROCEDURE INFORMATION: Exam: XR Right Shoulder Exam date and time: 10/08/2022 11:04 PM Age: 42 years old Clinical indication: Injury or trauma; Fall; Other: Pain; Additional info: Fall injury TECHNIQUE: Imaging protocol: Radiologic exam of the right shoulder. Views: 2 or more views. COMPARISON: CR XR chest 1V portable [id number] 08/03/2022 8:41 PM FINDINGS: Bones/joints: No evidence of acute fracture or dislocation. No erosive disease. No significant degenerative change. Soft tissues: Normal. XR/XR shoulder RT min 2V* [id number] IMPRESSION: No acute bony injury.
--- NOTE | 2022-10-08 22:50 | XRR_ITS ---
PROCEDURE INFORMATION: Exam: XR Right Wrist Exam date and time: 10/08/2022 11:01 PM Age: 42 years old Clinical indication: Injury or trauma; Fall; Work related; Blunt trauma (contusions or hematomas); Wrist; Right; Additional info: Fall injury TECHNIQUE: Imaging protocol: Radiologic exam of the right wrist. Views: 3 or more views. COMPARISON: No relevant prior studies available. FINDINGS: Bones/joints: No evidence of acute fracture or dislocation. No erosive disease. No significant degenerative change. Soft tissues: Normal. XR/XR wrist RT min 3V* [id number] IMPRESSION: No acute bony injury.
--- NOTE | 2022-10-08 23:07 | W.ED.FALL ---
HPI - Fall General: Chief Complaint: Fall Stated Complaint: Fall Left Foot\Rt Shoulder\Rt Wrist Time Seen by Provider: 10/08/22 23:07 History of Present Illness: 42-year-old female reports working at [employer] when she was coming out of the bathroom and caught her foot in the dust molina causing her to slip and fall. Patient reports injuring her left foot, right wrist, and right shoulder. Patient reports striking the right shoulder against a metal table. Catching herself with her right wrist, and twisting her left foot. Patient appears nontoxic. Patient has been able to ambulate on the extremity. Patient reports most of her pain is in her right shoulder. Review of Systems General: Reports: 10 or more systems reviewed and unremarkable except in HPI and below Musc: Reports: extremity pain and extremity swelling PFSH ED PFSH: Medical History Acid reflux Hiatal hernia Surgical History History of esophagogastroduodenoscopy (EGD) Family History Father Cancer bladder, prostate Hypertension Diabetes Sister Cancer breast Mother Stroke Social History Smoking and tobacco status: former smoker Alcohol intake: current Alcohol intake frequency: holidays/special occasions only Substance/Drug Use: never Adopted: No Caregiver/support person: No Lives independently: No Household members: significant other and family Housing: House Marital status: Single Number of children: 1 service: No Current occupational status: unemployed Current gender identity: Female Female Reproductive History: Date of last menstrual period: 10/01/22 Physical Exam Const: COMMON NORMALS: alert HENMT: COMMON NORMALS: normocephalic and atraumatic HEAD & SCALP: normocephalic and atraumatic Neck/C-Spine: COMMON NORMALS: full ROM Resp: COMMON NORMALS: normal respiratory effort Cardio: COMMON NORMALS: regular rate RATE: regular rate Extremity: RIGHT UPPER EXTREMITY: Yes shoulder joint (Palpable tenderness, no deformity) Right shoulder: Yes Right shoulder joint inspection exam, Yes palpation, Yes Right shoulder joint ROM exam and Yes Right shoulder joint neurovascular exam and Yes wrist (Joint line tenderness, no swelling normal range of motion) Right wrist: Yes inspection, Yes palpation and Yes ROM LEFT LOWER EXTREMITY: Yes foot & digits (Dorsal tenderness, no swelling or deformity) Left foot and digits: Yes inspection, Yes palpation and Yes ROM Neuro: SENSORIUM/ORIENTATION: Yes alert Skin: COMMON NORMALS: turgor normal GENERAL SKIN EXAM: turgor normal Course Vital Signs: Vital signs: Vital Signs Temperature 98.3 F 10/08/22 22:21 Pulse Rate 74 10/08/22 22:21 Respiratory Rate 18 10/08/22 22:21 Blood Pressure 127/86 10/08/22 22:21 Pulse Oximetry 95 10/08/22 22:21 Oxygen Delivery Me thod Room Air 10/08/22 22:21 MDM - Fall Medical Decision Making 42-year-old female comes in today with injury secondary to a fall. On exam patient has a tender area to the posterior right shoulder with minimal to no swelling and a small area of redness. Normal range of motion of the shoulder joint. Right wrist has some tenderness on palpation of the joint line but no obvious swelling or change in range of motion. Patient has tenderness to the dorsal left foot without signs of bruising or swelling. Differential diagnosis includes fracture, contusion, sprain. X-rays of the shoulder, right wrist, and left foot indicated no fractures or dislocation. Reviewed exam with patient recommended treatment for contusion and sprains. Patient reported understanding and agreed to plan. Discharge Plan Discharge Patient Disposition: Home Clinical Impression: Fall from slip, trip, or stumble Qualifiers: Encounter type: initial encounter Qualified Code(s): W01.0XXA - Fall on same level from slipping, tripping and stumbling without subsequent striking against object, initial encounter Contusion of right shoulder Qualifiers: Encounter type: initial encounter Qualified Code(s): S40.011A - Contusion of right shoulder, initial encounter Right wrist sprain Qualifiers: Encounter type: initial encounter Qualified Code(s): S63.501A - Unspecified sprain of right wrist, initial encounter Foot sprain Qualifiers: Encounter type: initial encounter Laterality: left Qualified Code(s): S93.602A - Unspecified sprain of left foot, initial encounter Condition: Stable Prescriptions: No Action omeprazole 20 mg capsule,delayed release(DR/EC) 20 mg PO BID buspirone 15 mg tablet 30 mg PO TID tizanidine [Zanaflex] 2 mg capsule 2 mg PO TID PRN (Reason: muscle spasticity) Qty: 14 0RF ropinirole 0.5 mg tablet 0.5 mg PO BID metoprolol succinate 25 mg tablet extended release 24 hr 25 mg PO DAILY levothyroxine 50 mcg capsule 50 mcg PO DAILY acetaminophen 500 mg capsule 500 mg PO Q6H PRN zolpidem 10 mg tablet PO escitalopram oxalate 10 mg tablet 10 mg PO DAILY melatonin 10 mg capsule 10 mg PO DAILY nystatin 100,000 unit/gram powder 1 applic topical BID mupirocin 2 % ointment 1 applic topical BID methocarbamol 750 mg tablet 750 mg PO TID hydrocodone-acetaminophen 5-325 mg tablet 1 tab PO Q8H PRN (Reason: pain) Qty: 5 0RF Discharge Orders: Discharge ED (Routine); Ordered 10/08/22 Ordered By: Jeremias Cueva Referrals: Jose Fulton MD [Primary Care Provider] - Discharge Diet: Usual diet Discharge Activity: Increase activity as tolerated Patient Instructions: Sprain (ED), Contusion in Adults (ED) Activity Restrictions/Additional Instructions: Activity as tolerated. Use acetaminophen and ibuprofen for pain. Follow-up with primary care for further instructions. Return to ED for new concerns or worsening symptoms. Coding Level of Care Code ED Ice House Supervisor for Stephany Sanders
[2022-10-09 00:01] VITALS: BP 145/90; PULSE 71; RESP 18; O2SAT 99
== END 2022-10-09 00:05 | disposition home or self-care (01) ==
PROVIDERS: Emergency Provider Nurse Practitioner Family; PCP Internal Medicine
DX: S63.501A Unspecified sprain of right wrist, initial encounter (principal); S93.602A Unspecified sprain of left foot, initial encounter; S40.011A Contusion of right shoulder, initial encounter; Z79.899 Other long term (current) drug therapy; Z87.891 Personal history of nicotine dependence; W01.0XXA Fall on same level from slipping, tripping and stumbling without subsequent striking against object, initial encounter
CPT/HCPCS: 73030; 73110; 73630; 99283

== ENCOUNTER 2023-01-13 15:59 | Inpatient (IN) | payer OTHER, MEDICAID, SELFPAY ==
[2023-01-13] VITALS (23 sets, daily range): BP systolic 104–134; BP diastolic 58–96; PULSE 66–99; RESP 9–26; TEMP 36.6–36.8; O2SAT 82–100; BMI 34.2
--- NOTE | 2023-01-13 16:24 | ECG_ITS ---
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 Measurements Intervals [place] Rate: 92 P: 45 ND: 134 QRS: 1 QRSD: 88 T: 31 QT: 388 QTc: 481 Interpretive Statements SINUS RHYTHM POSSIBLE LEFT ATRIAL ENLARGEMENT [-0.1mV P-WAVE IN V1/V2] POSSIBLE RIGHT VENTRICULAR CONDUCTION DELAY [RSR (QR) IN V1/V2] Compared to ECG 08/03/2022 22:18:29 No significant changes Electronically Signed On 01-13-2023 20:27:48 CDT by Nina Tello M.D. [email or web address] medical centerCequent Pharmaceuticalsk[facility].GKN - [employer]asNet/store/NU/[id number] f
[2023-01-13 16:31] LABS: Basophils % 0.5 %; Eosinophils # 0.1 10^3/uL (0.0-0.8); Eosinophils % 1.5 %; Hematocrit 41.6 % (36-47); Lymphocytes # 1.6 10^3/uL (0.8-4.8); Lymphocytes % 25.4 %; Mean Corpuscular HGB Conc 33.9 g/dL (30-55); Mean Corpuscular Hemoglobin 30.6 pg (27-33); Mean Corpuscular Volume 90.2 fl (85-98); Mean Platelet Volume 10.6 fL (7.4-10.4); Monocytes # 0.4 10^3/uL (0.2-0.9); Neutrophils # 4.04 10^3/uL (1.8-7.7); Neutrophils % 65.4 %; Nucleated Red Blood Cells % 0 %; Platelet Count 229 10^3/cmm (157-399); Red Blood Count 4.61 10^6/uL (3.85-5.65); Red Cell Distribution Width 11.9 % (12.1-15.1); White Blood Count 6.17 10^3/uL (3.29-11.43)
[2023-01-13 16:54] LABS: Alanine Aminotransferase 10 U/L (0-33); Albumin Level 4.2 g/dL (3.5-5.2); Alkaline Phosphatase 75 U/L (35-105); Anion Gap 15.3 (5-19); Aspartate Amino Transferase 14 U/L (0-32); Blood Urea Nitrogen 7 mg/dL (6-20); Calcium 8.9 mg/dL (8.5-10.5); Carbon Dioxide 23 mmol/L (22-29); Chloride 102 mmol/L (98-107); Globulin 2.9 g/dL (1.3-4.6); Glucose 87 mg/dL (65-115); Osmolality Calculated 281 mOsm/kg (285-295); Potassium 3.3 mmol/L (3.5-5.1); Sodium 137 mmol/L (136-145); Total Bilirubin 0.4 mg/dL (0.15-1.2); Total Protein 7.1 g/dL (6.6-8.7)
[2023-01-13 16:55] LABS: Acetaminophen < 5.0 ug/mL (10-30); Salicylate < 0.3 mg/dL (3-10)
--- NOTE | 2023-01-13 16:55 | PC.NURSE ---
Called poison control at 1657.
--- NOTE | 2023-01-13 17:00 | PC.NURSE ---
Peak of ambiem is 1.5 hours. Observe for clinical improvement per Poison control
--- NOTE | 2023-01-13 17:17 | W.ED.OVERDOS ---
HPI - Overdose General: Chief Complaint: Overdose Stated Complaint: Overdose Time Seen by Provider: 01/13/23 16:22 History of Present Illness: 42-year-old female brought to emergency room by EMS after overdosing on possible 19 to 25 tablets of Ambien and 2 Tylenol PM few hours ago. According to her 17-year-old son patient left a vague message on the face book and upon arriving home patient was found to be lethargic and told the son that she overdosed on Ambien. Upon present emergency room patient appeared to be lethargic but able to answer few questions. Patient did review that she is depressed but did not give any reason why Review of Systems Const: Reports: malaise GI: Denies: nausea, vomiting or coffee ground emesis Psych: Reports: depression and loss of interest PFSH ED PFSH: Medical History (Updated 01/13/23 @ 19:06 by Blaise Welsh MD) Acid reflux Hiatal hernia Hx of renal calculi Mitral valve prolapse Surgical History (Updated 01/13/23 @ 19:06 by Blaise Welsh MD) History of carpal tunnel release of both wrists History of esophagogastroduodenoscopy (EGD) Hx of breast biopsy Hx of tonsillectomy Family History Father Cancer bladder, prostate Hypertension Diabetes Sister Cancer breast Mother Stroke Social History Smoking and tobacco/nicotine status: former use of tobacco/nicotine Alcohol intake: current Alcohol intake frequency: holidays/special occasions only Substance/Drug Use: never Adopted: No Caregiver/support person: No Lives independently: No Household members: significant other and family Housing: House Marital status: Single Number of children: 1 service: No Current occupational status: unemployed Current gender identity: Female Physical Exam Const: EXAM LIMITATIONS: altered mental status GENERAL APPEARANCE: lethargic NUTRITIONAL APPEARANCE: overweight ORIENTATION/CONSCIOUSNESS: Yes lethargic HENMT: COMMON NORMALS: normocephalic, atraumatic, hearing grossly normal bilaterally, external ears normal, EAC's normal, TM's normal bilaterally, Normal external nose present, Normal nasal mucous membranes and turbinates present, moist oral mucous membranes, oropharynx normal, dentition normal and gingiva normal HEAD & SCALP: normocephalic and atraumatic NOSE: Normal external nose present and Normal nasal mucous membranes and turbinates present EXTERNAL EAR: Yes external ears normal EXTERNAL AUDITORY CANAL: EAC's normal TYMPANIC MEMBRANE: TM's normal bilaterally Neck/C-Spine: COMMON NORMALS: full ROM, no lymphadenopathy, supple, no meningeal signs, no JVD, Thyroid normal and No carotid bruits THYROID: Thyroid normal Cardio: COMMON NORMALS: no JVD Neuro: SENSORIUM/ORIENTATION: Yes lethargic MENINGEAL SIGNS: Yes no meningeal signs Course Vital Signs: Vital signs: Vital Signs Temperature 98.2 F 01/13/23 16:14 Pulse Rate 80 01/13/23 18:39 Respiratory Rate 18 01/13/23 18:39 Blood Pressure 111/77 01/13/23 18:39 Pulse Oximetry 93 01/13/23 18:39 Oxygen Delivery Me thod Room Air 01/13/23 18:39 Oxygen Flow Rate 2 01/13/23 16:14 MDM - Overdose Medical Decision Making Patient made comfortable emergency room. Patient had extensive work-up done including CBC, CMP, UDS, EKG and drug level. Discussed patient with her son. Discussed patient with the hospitalist. I was able to complete affidavits for 96-hour hold. Differential Diagnosis Likely cocaine intoxication, suicide attempt by multiple drug overdose, poisoning by opiate or related narcotic, drug overdose, acetaminophen overdose and accidental drug ingestion Lab Data 01/13/23 15:09 01/13/23 15:09 Laboratory Results WBC 6.17 10^3/uL (3.29-11.43) 01/13/23 15:09 RBC 4.61 10^6/uL (3.85-5.65) 01/13/23 15:09 Hgb 14.10 g/dL (11.27-16.99) 01/13/23 15:09 Hct 41.6 % (36-47) 01/13/23 15:09 MCV 90.2 fl (85-98) 01/13/23 15:09 MCH 30.6 pg (27-33) 01/13/23 15:09 MCHC 33.9 g/dL (30-55) 01/13/23 15:09 RDW 11.9 % (12.1-15.1) L 01/13/23 15:09 Plt Count 229 10^3/cmm (157-399) 01/13/23 15:09 MPV 10.6 fL (7.4-10.4) H 01/13/23 15:09 Neut % (Auto) 65.4 % 01/13/23 15:09 Lymph % (Auto) 25.4 % 01/13/23 15:09 [place] % (Auto) 7.0 % 01/13/23 15:09 Eos % (Auto) 1.5 % 01/13/23 15:09 Baso % (Auto) 0.5 % 01/13/23 15:09 Neut # (Auto) 4.04 10^3/uL (1.8-7.7) 01/13/23 15:09 Lymph # (Auto) 1.6 10^3/uL (0.8-4.8) 01/13/23 15:09 [place] # (Auto) 0.4 10^3/uL (0.2-0.9) 01/13/23 15:09 Eos # (Auto) 0.1 10^3/uL (0.0-0.8) 01/13/23 15:09 Baso # (Auto) 0.0 10^3/uL (0.0-0.1) 01/13/23 15:09 Nucleated RBC % (auto) 0 % 01/13/23 15:09 Nucleated RBCs # 0.0 /100WBC 01/13/23 15:09 Sodium 137 mmol/L (136-145) 01/13/23 15:09 Potassium 3.3 mmol/L (3.5-5.1) L 01/13/23 15:09 Chloride 102 mmol/L (98-107) 01/13/23 15:09 Carbon Dioxide 23 mmol/L (22-29) 01/13/23 15:09 Anion Gap 15.3 (5-19) 01/13/23 15:09 BUN 7 mg/dL (6-20) 01/13/23 15:09 Creatinine 0.9 mg/dL (0.5-0.9) 01/13/23 15:09 GFR Calculation 68.0 mL/min (90-130) L 01/13/23 15:09 Glucose 87 mg/dL (65-115) 01/13/23 15:09 Calculated Osmolality 281 mOsm/kg (285-295) L 01/13/23 15:09 Calcium 8.9 mg/dL (8.5-10.5) 01/13/23 15:09 Total Bilirubin 0.4 mg/dL (0.15-1.2) 01/13/23 15:09 AST 14 U/L (0-32) 01/13/23 15:09 ALT 10 U/L (0-33) 01/13/23 15:09 Alkaline Phosphatase 75 U/L (35-105) 01/13/23 15:09 Total Protein 7.1 g/dL (6.6-8.7) 01/13/23 15:09 Albumin 4.2 g/dL (3.5-5.2) 01/13/23 15:09 Globulin 2.9 g/dL (1.3-4.6) 01/13/23 15:09 HCG, Qual Negative (Negative) 01/13/23 16:47 Salicylates < 0.3 mg/dL (3-10) L 01/13/23 15:09 Urine Opiates Screen Negative ng/mL (Negative) 01/13/23 16:47 Acetaminophen < 5.0 ug/mL (10-30) L 01/13/23 15:09 Ur Barbiturates Screen Negative ng/mL (Negative) 01/13/23 16:47 Ur Phencyclidine Scrn Negative ng/mL (Negative) 01/13/23 16:47 Ur Amphetamines Screen Positive ng/mL (Negative) H 01/13/23 16:47 U Benzodiazepines Scrn Negative ng/mL (Negative) 01/13/23 16:47 Urine Cocaine Screen Negative ng/mL (Negative) 01/13/23 16:47 U Marijuana (THC) Screen Negative ng/mL (Negative) 01/13/23 16:47 No radiology studies performed this visit EKG Data EKG 1: Interpretation: Sinus rhythm with rate of 92 IA interval 134 QRS duration [address] changes. Critical Care Time Critical Care Time: Critical Care Time: Yes Total Critical Care Time: 45 Attestation: Patient made comfortable emergency room. Time spent discussing patient with family. Time spent discussing patient with hospitalist time spent reviewing past medical records. Patient completing affidavits Discharge Plan Discharge Patient Disposition: Admitted As Inpatient Admit Provider: Blaise Welsh Clinical Impression: Drug overdose, Suicide attempt by multiple drug overdose Condition: Stable Coding Level of Care Code ED Clinical Nurse Specialist for Stephany Sanders
[2023-01-13 17:19] LABS: HCG Qualitative Urine. Negative (Negative)
[2023-01-13 17:27] LABS: Amphetamines Screen Urine Positive (Negative); Barbiturates Screen Urine Negative (Negative); Benzodiazepines Screen Urine Negative (Negative); Cocaine Screen Urine Negative (Negative); Opiate Screen Urine Negative (Negative); PCP Screen Urine Negative (Negative); THC Screen Urine Negative (Negative)
--- NOTE | 2023-01-13 18:37 | PC.NURSE ---
WENT THROUGH [facility] AND FOUND AMBIEN BOTTLE EMPTY. AMBIEN WAS PRESCRIBED ON 12/26/22
--- NOTE | 2023-01-13 18:39 | P.HP_ITS ---
Providers/Chief Complaint Admitting Physician: Blaise Welsh Primary Care Provider: Jose Fulton MD Chief Complaint: Overdose History of Present Illness Shabana Mancini is a 42 year old female is evaluated in ER due to overdose with multiple medications including 19-25 tablets of Ambien, 3 Tylenol PM tablets, alcohol, with reported suicidal ideation and intent. She is lethargic/minimally conscious, not able to provide history. So far protecting her airway. Poison control was contacted in ER, recommendation for additional monitoring, assessment of QT. 96-hour hold is being obtained in ER. On arrival hypoglycemic, BG 40. Received D10. Review of Systems General: Reports: ROS unobtainable due to mental status Medications/Allergies Home Medications Medication Instructions Recorded Confirmed Last Taken Type acetaminophen 500 mg capsule 500 mg PO Q6H PRN Pain 06/14/22 01/13/23 Unknown History buspirone 15 mg tablet 30 mg PO TID 06/14/22 01/13/23 Unknown History levothyroxine 50 mcg capsule 50 mcg PO DAILY 06/14/22 01/13/23 Unknown History melatonin 10 mg capsule 10 mg PO DAILY 06/14/22 01/13/23 Unknown History ropinirole 0.5 mg tablet 0.5 - 1 mg PO BEDTIME 06/14/22 01/13/23 Unknown History zolpidem 10 mg tablet 10 mg PO BEDTIME 06/14/22 01/13/23 Unknown History amlodipine 5 mg tablet 5 mg PO QAM 01/13/23 01/13/23 Unknown History buspirone 30 mg tablet 30 mg PO TID 01/13/23 01/13/23 Unknown History escitalopram oxalate 5 mg tablet 15 mg PO QAM 01/13/23 01/13/23 Unknown History metoprolol succinate 50 mg 50 mg PO QAM 01/13/23 01/13/23 Unknown History tablet,extended release 24 hr pantoprazole 40 mg tablet,delayed 40 mg PO BID 01/13/23 01/13/23 Unknown History release phentermine 37.5 mg tablet 37.5 mg PO QAM 01/13/23 01/13/23 Unknown History Allergies Allergy/AdvReac Type Severity Reaction Status Date / Time No Known Allergies Allergy Verified 10/08/22 22:31 PFSH Acute PFSH: Medical History Acid reflux Hiatal hernia Hx of renal calculi Mitral valve prolapse Surgical History History of carpal tunnel release of both wrists History of esophagogastroduodenoscopy (EGD) Hx of breast biopsy Hx of tonsillectomy Family History Father Cancer bladder, prostate Hypertension Diabetes Sister Cancer breast Mother Stroke Social History Smoking and tobacco/nicotine status: former use of tobacco/nicotine Alcohol intake: current Alcohol intake frequency: holidays/special occasions only Substance/Drug Use: never Adopted: No Caregiver/support person: No Lives independently: No Household members: significant other and family Housing: House Marital status: Single Number of children: 1 service: No Current occupational status: unemployed Current gender identity: Female Vitals/I&O/Wt Last Vital Signs Temp 98.2 F 01/13/23 16:14 Pulse 89 01/13/23 17:05 Resp 18 01/13/23 17:05 BP 114/79 01/13/23 17:05 Pulse Ox 95 01/13/23 17:05 O2 Del Method Room Air 01/13/23 17:05 O2 Flow Rate 2 01/13/23 16:14 Physical Exam Const: GENERAL APPEARANCE: cooperative ORIENTATION/CONSCIOUSNESS: Yes lethargic Neck/C-Spine: COMMON NORMALS: no JVD Resp: COMMON NORMALS: normal respiratory effort and clear to auscultation bilaterally AUSCULTATION: clear to auscultation bilaterally Cardio: COMMON NORMALS: no JVD, regular rhythm, S1 normal heart sound present, S2 normal heart sound present and No murmurs present (Cardio) RHYTHM: regular rhythm HEART SOUNDS: S1 normal heart sound present and S2 normal heart sound present Extremity: COMMON NORMALS: no pedal edema Neuro: COMMON NORMALS: moves all extremities SENSORIUM/ORIENTATION: Yes lethargic Data 01/13/23 15:09 01/13/23 15:09 A&P Assessment and plan (1) Drug overdose: Overdose with multiple medications some EtOH intake. With acute toxic encephalopathy secondary to medication overdose. Currently minimally conscious. History HPI obtained from ER staff. So far protecting airway on assessment. So far has not required intubation. Monitor closely in ICU as she is at risk of respiratory compromise, respiratory failure, aspiration, arrhythmia, risk of other complications. Poison control has been contacted. Recommendation for additional monitoring, assessment of QTc. We will request additional EKG tonight and in the morning. Reviewed CBC, CMP, UDS. EKG. Monitor on telemetry. Will reassess CBC, CMP. One-to-one sitter. Not to discharge without psychiatry evaluation, and likely will need assessment and management on neuropsychiatric unit once awake and able to communicate. Discussed with ER physician including obtaining 96-hour hold. ER documentation reviewed. (2) Suicide attempt by multiple drug overdose: (3) Hypoglycemia: Hypoglycemia reported on presentation. Received dextrose. Glucose reviewed. Will order Accu-Cheks, hypoglycemia protocol. Plan Mild hypokalemia: We will give 20 mill equivalents of potassium chloride. Follow-up chemistry requested. Check magnesium. Acid reflux:Protonix Hiatal hernia Mitral valve prolapse Attestations Medical Necessity Statement*: Admission of over 2 midnights is going to be needed for assessment management of suicidal attempt with overdose with multiple medications, EtOH. Coding Level of Care Code Critical Care >/= 30 minutes Critical care time (in minutes): 35 The high probability of a clinically significant, sudden or life threatening deterioration, as referenced in this documentation, required my full and direct attention, intervention and personal management. The critical care time shown is in addition to time spent performing any reported separately billable procedures and includes the following: [x] Data and vital sign review and interpretation [x ] Patient assessment, examination and intervention [x] Medication orders and management [x] Patient/Family updates as able [x] Care Coordination and Document ation. Diagnoses Drug overdose T50.901A Suicide attempt by multiple drug overdose T50.912A Hypoglycemia E16.2
--- NOTE | 2023-01-13 18:55 | PC.NURSE ---
HS and [employer] attempted top Serve pt with 96hr rights @1820. Patient asleep and was unsuccessful at waking her to read these rights. Patient copy left with patient belongings at bedside. DIGITAL MEDIA PLANNER updated on status of 96hr rights being served. Will report to [facility] of inability to answer patient questions at this time.
[2023-01-13] MEDS: pantoprazole 40 mg SDV IVP (19:52)
[2023-01-13] MEDS: potassium chloride premix 100 ML 50 MEQ IV (19:52)
[2023-01-13 20:14] LABS: Magnesium 2.4 mg/dL (1.7-2.3)
[2023-01-13 20:49] LABS: Glucose Point of Care 79 mg/dL (70-110)
[2023-01-13 21:19] LABS: Glucose Point of Care 93 mg/dL (70-110)
--- NOTE | 2023-01-13 22:00 | PC.NURSE ---
Addendum entered by Mary Carmen Miller RN 01/14/23 00:15: Order received to recheck acetaminophen level. Original Note: Physician Communication Poison Control called and recommended a follow-up drug tox screen to recheck acetaminophen level. Additionally, patient noted to have vaginal bleeding. Patient confused but does state that she is on her menstrual cycle. No signs of any physical altercation observed. Dr. Stuart notified of both pieces of information; order received to recheck a urine drug screen.
--- NOTE | 2023-01-13 22:48 | ECG_ITS ---
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 Measurements Intervals [place] Rate: 82 P: 48 NM: 145 QRS: 27 QRSD: 84 T: 42 QT: 391 QTc: 457 Interpretive Statements SINUS RHYTHM Compared to ECG 01/13/2023 16:19:15 No significant changes Electronically Signed On 01-14-2023 21:28:31 CDT by Jah Grey M.D. [email or web address] residential centerDiagnostic Biochipstoledo [email or web address]/store/[id number]
[2023-01-13 23:25] LABS: Amphetamines Screen Urine Positive (Negative); Barbiturates Screen Urine Negative (Negative); Benzodiazepines Screen Urine Negative (Negative); Cocaine Screen Urine Negative (Negative); Opiate Screen Urine Negative (Negative); PCP Screen Urine Negative (Negative); THC Screen Urine Negative (Negative)
[2023-01-14] VITALS (27 sets, daily range): BP systolic 95–132; BP diastolic 59–88; PULSE 71–103; RESP 15–25; TEMP 36.5–36.8; O2SAT 94–100; BMI 34.2
[2023-01-14 00:11] LABS: Glucose Point of Care 94 mg/dL (70-110)
[2023-01-14 00:11] LABS: Glucose Point of Care 76 mg/dL (70-110)
[2023-01-14 00:52] LABS: Acetaminophen 7.2 ug/mL (10-30)
[2023-01-14 02:31] LABS: Glucose Point of Care 95 mg/dL (70-110)
[2023-01-14 03:09] LABS: Basophils # 0.1 10^3/uL (0.0-0.1); Basophils % 1.1 %; Eosinophils # 0.1 10^3/uL (0.0-0.8); Hematocrit 43.5 % (36-47); Lymphocytes # 1.9 10^3/uL (0.8-4.8); Lymphocytes % 36.1 %; Mean Corpuscular Hemoglobin 31.5 pg (27-33); Mean Corpuscular Volume 92.6 fl (85-98); Mean Platelet Volume 9.7 fL (7.4-10.4); Monocytes # 0.5 10^3/uL (0.2-0.9); Monocytes % 9.5 %; Neutrophils # 2.74 10^3/uL (1.8-7.7); Neutrophils % 51.1 %; Nucleated Red Blood Cells % 0 %; Platelet Count 229 10^3/cmm (157-399); Red Cell Distribution Width 11.9 % (12.1-15.1); White Blood Count 5.37 10^3/uL (3.29-11.43)
[2023-01-14 03:33] LABS: Alanine Aminotransferase 10 U/L (0-33); Albumin Level 3.8 g/dL (3.5-5.2); Alkaline Phosphatase 69 U/L (35-105); Anion Gap 12.4 (5-19); Aspartate Amino Transferase 13 U/L (0-32); Blood Urea Nitrogen 5 mg/dL (6-20); Calcium 8.6 mg/dL (8.5-10.5); Carbon Dioxide 27 mmol/L (22-29); Chloride 105 mmol/L (98-107); Globulin 2.7 g/dL (1.3-4.6); Glucose 86 mg/dL (65-115); Osmolality Calculated 287 mOsm/kg (285-295); Potassium 4.4 mmol/L (3.5-5.1); Sodium 140 mmol/L (136-145); Total Bilirubin 0.4 mg/dL (0.15-1.2); Total Protein 6.5 g/dL (6.6-8.7)
[2023-01-14 05:12] LABS: Glucose Point of Care 86 mg/dL (70-110)
[2023-01-14 06:16] LABS: Glucose Point of Care 79 mg/dL (70-110)
--- NOTE | 2023-01-14 08:00 | ECG_ITS ---
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 Measurements Intervals [place] Rate: 80 P: 25 UT: 141 QRS: 11 QRSD: 93 T: 25 QT: 393 QTc: 454 Interpretive Statements SINUS RHYTHM MODERATE T-WAVE ABNORMALITY, CONSIDER ANTERIOR ISCHEMIA [-0.1+ mV T-WAVE IN V3/V4] Compared to ECG 01/13/2023 22:48:53 T-wave abnormality now present Possible ischemia now present Electronically Signed On 01-14-2023 21:29:18 CDT by Jah Grey M.D. [id number]
[2023-01-14 08:13] LABS: Glucose Point of Care 92 mg/dL (70-110)
[2023-01-14] MEDS: pantoprazole DR 40 mg Tablet PO ×2 (09:49→17:28)
--- NOTE | 2023-01-14 10:17 | PM.PN ---
Vitals/I&O/Wt Last Vital Signs Temp 98.2 F 01/14/23 04:30 Pulse 97 01/14/23 10:00 Resp 24 H 01/14/23 10:00 BP 102/67 01/14/23 10:00 Pulse Ox 96 01/14/23 10:00 O2 Del Method Room Air 01/14/23 04:30 O2 Flow Rate 2 01/13/23 16:14 01/13/23 01/14/23 01/14/23 22:59 06:59 14:59 Intake Total 100 / 100 0 / 0 Output Total 1150 / 1150 550 / 1700 Balance -1050 / -1050 -550 / -1600 0 / 0 Weight last 48 hrs Weight 87.543 kg Physical Exam Const: COMMON NORMALS: patient oriented x3 and alert GENERAL APPEARANCE: cooperative and lethargic ORIENTATION/CONSCIOUSNESS: Yes awake and Yes lethargic HENMT: COMMON NORMALS: oropharynx normal Neck/C-Spine: COMMON NORMALS: no JVD Resp: COMMON NORMALS: normal respiratory effort and clear to auscultation bilaterally AUSCULTATION: clear to auscultation bilaterally Cardio: COMMON NORMALS: no JVD, regular rhythm, S1 normal heart sound present, S2 normal heart sound present and No murmurs present (Cardio) RHYTHM: regular rhythm HEART SOUNDS: S1 normal heart sound present and S2 normal heart sound present GI: COMMON NORMALS: Normal to inspection, nondistended, normoactive bowel sounds present, Soft to palpation and non-tender PALPATION: Yes Soft to palpation Extremity: COMMON NORMALS: no joint enlargement and no pedal edema Neuro: COMMON NORMALS: patient oriented x3 and moves all extremities SENSORIUM/ORIENTATION: Yes alert and Yes lethargic Skin: COMMON NORMALS: no rashes or lesions noted GENERAL SKIN EXAM: no rashes or lesions noted Urinary Catheter Management: Dugan: Cath Placed During This Visit: no Reason for Continuing Indwelling Catheter: Accurate Measurement of Urinary Output in Critically Ill Patients Data 01/14/23 02:52 01/14/23 02:52 A&P Assessment and plan (1) Drug overdose: Did well overnight, currently awake, alert and lucid. Has history of depression, anxiety for which she has been following with PCP. Reports yesterday she took Ambien and Tylenol PM. Denies any other medications. Discussed with her initial hypoglycemia. Denies taking any hypoglycemics or insulin. Discussed with her and she is agreeable to transfer to NPU as may be deemed appropriate by psychiatry. Discussed with psychiatry. Requires additional assessment management with risk to self with suicidal ideation and attempt. Overdose with multiple medications some EtOH intake. Acute encephalopathy on presentation, resolved. Reviewed CBC, CMP, EKG. (2) Suicide attempt by multiple drug overdose: (3) Hypoglycemia: Reviewed Accu-Cheks. Resumed on regular diet. Plan Mild hypokalemia: Reviewed potassium. Hypokalemia replaced. Acid reflux:Protonix Hiatal hernia Mitral valve prolapse Attestations Medical Necessity Statement*: Continue admission for assessment management following multiple medication overdose, suicide attempt in a lady with underlying mood disorder. Diagnoses Drug overdose T50.901A Suicide attempt by multiple drug overdose T50.912A Hypoglycemia E16.2
--- NOTE | 2023-01-14 11:21 | PC.NURSE ---
sucide risk assessment done pt alert and oriented good appitite for am meal .. family notified prior of visiting time and status .. meadows removed whole intact no distress
--- NOTE | 2023-01-14 12:22 | PC.NURSE ---
pt called staff in questioning occurrence of yesterday and who found her ..explained that son had been brought in with her stated she must have [place] by mothers [place] ..asked about her belongings and explained wallet locked up in medication bin she asked how we got that .. that she had taken her necklaces off and put them up for saftey for son and didnt have wallet in her pocket.. staff explained that i didnt know about that but we had her wallet . also questioned if she took her jewlery off that she had planed this..pt quiet for minute then asked i just messed up didnt I
[2023-01-14 14:35] LABS: Glucose Point of Care 113 mg/dL (70-110)
--- NOTE | 2023-01-14 14:44 | PC.NURSE ---
Addendum entered by Miriam Uribe RN 01/14/23 14:47: PT ALSO STATED THAT SHE HAS NEVER ATTEMPTED SUICIDE AND THAT THIS WAS NOT AN ATTEMPT ON HER LIFE. Original Note: PT ARRIVED TO THE ER AFTER HER 17 YEAR OLD SON FOUND HER ON HER MOTHERS GRAVE WITH SUSPECTED AMBIEN OVERDOSE. PT HAD EMPTY AMBIEN BOTTLE WITH HER UPON ARRIVAL. PT WAS SENT TO THE ICU. PT ARRIVED TO THE NPU STATING I DON'T KNOW WHY IM HERE, I JUST TOOK A DARE FROM SOME 17 YEAR OLD. PT DID RELAY TO ICU NURSE PRIOR THAT SHE HAD PUT UP HER JEWELRY AND WALLET UP SO HER SON COULD HAVE THEM AND THEN STATED HOW SHE HAD MESSED UP.
--- NOTE | 2023-01-14 14:51 | PC.NURSE ---
son notified of transfer to room 126 and visiting hours from 3 to 4
[2023-01-14] MEDS: levothyroxine 50 mcg Tablet PO (15:15)
[2023-01-15 06:00] VITALS: BP 96/63; PULSE 76; RESP 16; TEMP 36.9; O2SAT 95
[2023-01-15] MEDS: pantoprazole DR 40 mg Tablet PO ×2 (08:52→18:19)
[2023-01-15] MEDS: levothyroxine 50 mcg Tablet PO (08:52)
--- NOTE | 2023-01-15 09:35 | PC.NURSE ---
During morning assessment, patient denies anxiety, depression, SI, HI, and AVH. Patient calm, cooperative and pleasant during assessment.
--- NOTE | 2023-01-15 09:37 | PC.NURSE ---
During morning assessment, patient denies anxiety, depression, SI, HI, and AVH. Patient calm, cooperative and pleasant during assessment.
--- NOTE | 2023-01-15 09:40 | P.NPUHP_ITS ---
Providers/Chief Complaint Admitting Physician: Guanako Yanez MD Primary Care Provider: Jose Fulton MD Chief Complaint: Overdose HPI NPU History of Present Illness Shabana Mancini is a 42 year old female who presented to the emergency department with the following report: Chief Complaint: Overdose Stated Complaint: Overdose Time Seen by Provider: 01/13/23 16:22 History of Present Illness: 42-year-old female brought to emergency room by EMS after overdosing on possible 19 to 25 tablets of Ambien and 2 Tylenol PM few hours ago. According to her 17-year-old son patient left a vague message on the face book and upon arriving home patient was found to be lethargic and told the son that she overdosed on Ambien. Upon present emergency room patient appeared to be lethargic but able to answer few questions. Patient did review that she is depressed but did not give any reason why For definitive treatment of those issues and was evaluated and treated for her condition for a few days. As she was improving the hospitalist called and id entified a need for continued inpatient treatment and she was placed on a 96- hour hold and transferred to the neuropsychiatric unit for definitive treatment of those issues. The patient presents today reporting that she had been taking buspirone and Lexapro. She reports that she is here secondary to ?apparently? having an accidental overdose; she reports that she woke up in the ICU and doesn?t recall all of the events prior to that. But she states that this was related to ?bad advice and alcohol.? She reports that she had friends that advised her that pills and alcohol make things better. The patient reports that she has had one previous psychiatric hospitalization in [place], [place], in the last few months, and maybe when she was a little kid, stating that her mom had some issues and put her in there and her dad got her out. She denies recent outpatient services. She was supposed to follow up with [facility] but reports that they did not take her insurance. The patient reports that she has taken a few other psychiatric medications, but it has been so long ago that she cannot recall the names. The patient reports that she vapes, which she has done for about four months, and she used to smoke cigarettes but has not smoked in about three years. She endorses social alcohol use. She denies marijuana, cocaine, methamphetamine, opiates, mushrooms, ecstasy, LSD or any other illicit drug use. She denies drug rehabilitation, DUI, or other drug related charges. She reports that her mother had Polio when she was growing up, and she took on the responsibility of taking care of everyone because her dad worked and her mom was sick, and then her mom and she also took care of both of her sisters who had cancer. But she has struggled to reach out and get help for herself, reporting her friends look to her as being ?super woman? and everyone would be surprised she is here. She reports that she has seen many family members . She reports that for the most part her depression has been under control. But lately there have been a lot of things that have been overwhelming, financially and with her family. Her father went to the hospital recently and is 78 year sold, and she worries about him dying. Her son is getting ready to finish high school and she thinks about him leaving. She denies any history of suicidality or self-injurious behavior. She endorses sometimes feeling like giving up but not necessarily passive wish. She reports that she has a good support s ystem. But she doesn?t necessarily want to bother them because everyone has things to deal with. She reports that her anxiety is mostly cognitive but with some physical manifestations with breathing. She denies obsessive compulsive behaviors. She denies nightmares or flashbacks. The patient expressed her desire to go home and related that she feels it is imperative that she be with her family. But explained the importance of getting more information about her overdose and further assessing the situation to make sure she has a safety net when she is discharged to prevent this from happening again. We discussed the risks, benefits, and alternatives of current medications, and we discussed her being on hold and the need for further evaluation, as stated above, and that we would take it one day at a time, and she understood and agreed to proceed as is documented in this note. PSYCHIATRIC HISTORY: As above. SUBSTANCE ABUSE HISTORY: As above.? FAMILY HISTORY: The patient denies being aware of mental health issues in her family. She endorses addiction issues on her mom?s side of the family, reports that her mother had a gambling addiction. She endorses suicide attempts in her family. DEVELOPMENTAL HISTORY: The patient endorses being premature and weighing 3 pounds at and had to go to the NICU in [place]. The patient reports learning to walk and talk and meeting developmental milestones on time. The patient denies speech therapy, learning support, emotional support, or special education classes. PSYCHOSOCIAL HISTORY: The patient reports that her mother and father were together at her , and stayed together until her mom passed. She reports that she is the only child from that union; and her mother had three children and her father had three children from previous relationships. She has one half-brother and two half- sisters from her mother and two half-brothers and one half-sister from her father. She reports that all three of her siblings from her mother are , two sisters had cancer and brother was killed in motorcycle accident. She describes her childhood as awesome. She denies neglect or emotional, physical, or sexual abuse. She denies CYS involvement or placement. She reports that she graduated from high school. She had a scholarship and played basketball and volleyball in college. She did not graduate from college due to going home to take care of her parents. She endorses being bisexual, with her longest relationship being eight years with a female. She has not been . She has one child, a 17-year-old son who is a senior. She denies service. She denies a buddhism belief system. 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 She reports that she currently lives in a house with her father and her son. LEGAL HISTORY: Denied. MEDICAL HISTORY: The patient denies any known allergies to medications. She reports that she has mitral valve prolapse and atrial septal defect and heart murmur. She reports she has had carpal tunnel surgery on both sides, tonsillectomy, incisional biopsy on right breast, right ankle surgery. She reports that her son was delivered vaginally. She reports that she started her menses when she was 10 to 11 years old. She reports that they were very irregular. Meds NPU Home Medications Medication Instructions Recorded Confirmed Last Taken Type acetaminophen 500 mg capsule 500 mg PO Q6H PRN Pain 06/14/22 01/13/23 Unknown History buspirone 15 mg tablet 30 mg PO TID 06/14/22 01/13/23 Unknown History levothyroxine 50 mcg capsule 50 mcg PO DAILY 06/14/22 01/13/23 Unknown History melatonin 10 mg capsule 10 mg PO DAILY 06/14/22 01/13/23 Unknown History ropinirole 0.5 mg tablet 0.5 - 1 mg PO BEDTIME 06/14/22 01/13/23 Unknown History zolpidem 10 mg tablet 10 mg PO BEDTIME 06/14/22 01/13/23 Unknown History amlodipine 5 mg tablet 5 mg PO QAM 01/13/23 01/13/23 Unknown History buspirone 30 mg tablet 30 mg PO TID 01/13/23 01/13/23 Unknown History escitalopram oxalate 5 mg tablet 15 mg PO QAM 01/13/23 01/13/23 Unknown History metoprolol succinate 50 mg 50 mg PO QAM 01/13/23 01/13/23 Unknown History tablet,extended release 24 hr pantoprazole 40 mg tablet,delayed 40 mg PO BID 01/13/23 01/13/23 Unknown History release phentermine 37.5 mg tablet 37.5 mg PO QAM 01/13/23 01/13/23 Unknown History Allergies Allergy/AdvReac Type Severity Reaction Status Date / Time No Known Allergies Allergy Verified 10/08/22 22:31 PFSH NPU PFSH: Medical History Acid reflux Hiatal hernia Hx of renal calculi Mitral valve prolapse Surgical History History of carpal tunnel release of both wrists History of esophagogastroduodenoscopy (EGD) Hx of breast biopsy Hx of tonsillectomy Family History Father Cancer bladder, prostate Hypertension Diabetes Sister Cancer breast Mother Stroke Social History Smoking and tobacco/nicotine status: former use of tobacco/nicotine Alcohol intake: current Alcohol intake frequency: holidays/special occasions only Substance/Drug Use: never Adopted: No Caregiver/support person: No Lives independently: No Household members: significant other and family Housing: House Marital status: Single Number of children: 1 service: No Current occupational status: unemployed Current gender identity: Female Mental Status Exam MSE Comments: This is a well-nourished, well-developed, white female, in hospital scrubs, with adequate grooming and eye contact. No abnormal movements, except for psychomotor retardation. Cooperative with exam in mild distress. Speech was normal rate and volume. Mood described as good; affect congruent. Thought process, organized. Thought content: patient denied any suicidal or homicidal ideation, there were no delusions reported or noted, patient denied any auditory or visual hallucinations. Attention, concentration, and memory appeared intact, but none were formally tested. Alert and oriented times three. Insight and judgment are limited versus impaired. Impulse control is limited versus impaired. Vitals/I&O/Wt Last Vital Signs Temp 98.4 F 01/15/23 06:00 Pulse 76 01/15/23 06:00 Resp 16 01/15/23 06:00 BP 96/63 01/15/23 06:00 Pulse Ox 95 01/15/23 06:00 O2 Del Method Room Air 01/15/23 06:00 O2 Flow Rate 2 01/13/23 16:14 Weight last 48 hrs Weight 85.899 kg Weight 85.899 kg Weight 87.543 kg Weight 87.543 kg Physical Exam Urinary Catheter Management: Dugan: Cath Placed During This Visit: no Reason for Continuing Indwelling Catheter: Accurate Measurement of Urinary Output in Critically Ill Patients Data NPU 01/14/23 02:52 01/14/23 02:52 A&P Assessment and plan (1) Hypoglycemia: (2) Suicide attempt by multiple drug overdose: (3) Bartholin gland cyst: (4) UTI (urinary tract infection): Qualifiers: Urinary tract infection type: acute cystitis Hematuria presence: with hematuria Qualified Code(s): N30.01 - Acute cystitis with hematuria (5) Acid reflux: Qualifiers: Esophagitis presence: with esophagitis Qualified Code(s): K21.0 - Gastro-esophageal reflux disease with esophagitis (6) Hiatal hernia: Plan This is a 42, almost 43-year-old, white female, with a limited history of mental health issues and treatment, who presents after a stay in the ICU secondary to an overdose, unable to fully explain her actions that led to that incident, currently on medication but with no significant follow-up outpatient treatment after a recent psychiatric hospitalization just a few months ago. 1.? Continue/restart current medication. 2.? Encourage individual, group, and milieu therapy. 3.? Continue q-15-minute checks for safety. 4. Attempt to get collateral information to gain a better understanding of the situation and her risk for continued suicidal behavior. Involuntary Hold Information 96 Hour Hold: 96 Hour Involuntary Admission: Yes 96 Hour Hold Ending Date: 01/19/23 96 Hour Hold Ending Time: 17:00 Attestations NPU Medical Necessity Statement*: Inpatient hospitalization is medically necessary and the clinically appropriate intervention, at this time. We will monitor medications and make changes as indicated. Patient will be in the hospital for over two midnights. Likely length of stay is three to five days. Coding Level of Care Code Acute Code for Chg Fwd Diagnoses Hypoglycemia E16.2 Suicide attempt by multiple drug overdose T50.912A Bartholin gland cyst N75.0 UTI (urinary tract infection) N30.01 Urinary tract infection type: acute cystitis Hematuria presence: with hematuria Acid reflux K21.0 Esophagitis presence: with esophagitis Hiatal hernia K44.9
[2023-01-15 14:00] VITALS: BP 115/84; PULSE 92; RESP 16; TEMP 36.4; O2SAT 100
[2023-01-15 19:39] VITALS: BP 128/89; PULSE 85; RESP 18; TEMP 36.9; O2SAT 99
[2023-01-15] MEDS: trazodone 50 mg Tablet PO (20:22)
[2023-01-16 06:00] VITALS: BP 124/87; PULSE 85; RESP 16; O2SAT 97
[2023-01-16] MEDS: levothyroxine 50 mcg Tablet PO (06:06)
[2023-01-16] MEDS: escitalopram 10 mg Tablet 20 MG PO (08:25)
[2023-01-16] MEDS: BuSPIRONE 10 mg Tablet 15 MG PO ×2 (08:25→10:11)
[2023-01-16] MEDS: pantoprazole DR 40 mg Tablet PO ×2 (08:25→17:06)
--- NOTE | 2023-01-16 12:03 | W.PM.NPUPNS ---
Subjective NPU Subjective: Patient presented today reporting that she is doing fine. She denied any issues at all. She continued to search for the reasons behind her behaviors and mostly could come up with being overwhelmed and feeling like she was a burden etc. she reports that now she knows as not the case and she misses her family and she feels like discharge sooner rather than later is the best plan. We agreed that she would speak with the social work team and we would consider discharge likely by her hold expiring on 01/19/2023 but possibly earlier. But not today. She was tearful as she made a plea for discharge soon. Reporting that she had learned her lesson and would never do anything like this again. Mental Status Exam MSE Comments: This is a well-nourished, well-developed, white female, in hospital scrubs, with adequate grooming and eye contact. No abnormal movements, except for psychomotor retardation. Cooperative with exam in mild distress. Speech was normal rate and volume. Mood described as good; affect congruent, but tearful about hoping to discharge. Thought process, organized. Thought content: patient denied any suicidal or homicidal ideation, there were no delusions reported or noted, patient denied any auditory or visual hallucinations. Attention, concentration, and memory appeared intact, but none were formally tested. Alert and oriented times three. Insight and judgment are limited versus impaired. Impulse control is limited versus impaired. Vitals/I&O/Wt Last Vital Signs Temp 98.4 F 01/15/23 19:39 Pulse 85 01/16/23 06:00 Resp 16 01/16/23 06:00 BP 124/87 01/16/23 06:00 Pulse Ox 97 01/16/23 06:00 O2 Del Method Room Air 01/16/23 06:00 O2 Flow Rate 2 01/13/23 16:14 Weight last 48 hrs Weight 85.899 kg Weight 85.899 kg Weight 87.543 kg Physical Exam Urinary Catheter Management: Dugan: Cath Placed During This Visit: no Reason for Continuing Indwelling Catheter: Accurate Measurement of Urinary Output in Critically Ill Patients Data NPU 01/14/23 02:52 01/14/23 02:52 A&P Assessment and plan (1) Hypoglycemia: (2) Suicide attempt by multiple drug overdose: (3) Bartholin gland cyst: (4) UTI (urinary tract infection): Qualifiers: Hematuria presence: with hematuria Urinary tract infection type: acute cystitis Qualified Code(s): N30.01 - Acute cystitis with hematuria (5) Acid reflux: Qualifiers: Esophagitis presence: with esophagitis Qualified Code(s): K21.0 - Gastro-esophageal reflux disease with esophagitis (6) Hiatal hernia: (7) Major depressive disorder, recurrent: (8) Borderline personality disorder: Plan This is a 42, almost 43-year-old, white female, with a limited history of mental health issues and treatment, who presents after a stay in the ICU secondary to an overdose, unable to fully explain her actions that led to that incident, currently on medication but with no significant follow-up outpatient treatment after a recent psychiatric hospitalization just a few months ago. 1.? Continue/restart current medication. Increased Lexapro to 20 mg p.o. daily 2.? Encourage individual, group, and milieu therapy. 3.? Continue q-15-minute checks for safety. 4. Attempt to get collateral information to gain a better understanding of the situation and her risk for continued suicidal behavior. Involuntary Hold Information 96 Hour Hold: 96 Hour Involuntary Admission: Yes 96 Hour Hold Ending Date: 01/19/23 96 Hour Hold Ending Time: 17:00 Attestations NPU Medical Necessity Statement*: Inpatient hospitalization is medically necessary and the clinically appropriate intervention, at this time. We will monitor medications and make changes as indicated.Likely length of stay is 2-4 days. Coding Level of Care Code Acute Code for Chg Fwd Diagnoses Hypoglycemia E16.2 Suicide attempt by multiple drug overdose T50.912A Bartholin gland cyst N75.0 UTI (urinary tract infection) N30.01 Hematuria presence: with hematuria Urinary tract infection type: acute cystitis Acid reflux K21.0 Esophagitis presence: with esophagitis Hiatal hernia K44.9 Major depressive disorder, recurrent F33.9 Borderline personality disorder F60.3
[2023-01-16 14:00] VITALS: BP 120/85; PULSE 85; RESP 16; TEMP 36.6; O2SAT 99
[2023-01-16] MEDS: BuSPIRONE 10 mg Tablet 30 MG PO ×2 (15:07→20:05)
[2023-01-16 19:59] VITALS: BP 135/94; PULSE 79; RESP 16; TEMP 36.8; O2SAT 99
[2023-01-16] MEDS: trazodone 50 mg Tablet PO (20:05)
[2023-01-17 06:00] VITALS: BP 118/79; PULSE 78; RESP 16; TEMP 36.8; O2SAT 98
[2023-01-17] MEDS: levothyroxine 50 mcg Tablet PO (06:42)
[2023-01-17] MEDS: BuSPIRONE 10 mg Tablet 30 MG PO ×3 (08:38→20:42)
[2023-01-17] MEDS: pantoprazole DR 40 mg Tablet PO ×2 (08:38→18:36)
[2023-01-17] MEDS: escitalopram 10 mg Tablet 20 MG PO (08:39)
--- NOTE | 2023-01-17 13:27 | P.NPUPN_ITS ---
Subjective NPU Subjective: Patient presented today reporting that she is doing better and feels optimistic about discharge. We discussed her hospitalization from a couple weeks ago and she reported that it was a psychiatric hospitalization that was related to somatic complaints. She denied there being any suicidal factors involved. We discussed a plan for discharge tomorrow but continued residence about her not se eming to be able to really discuss the anesthesia benefits related to her overdose and subsequent ICU stay. We discussed the need for appropriate aftercare for her success which she adamantly endorsed that she would follow-up and avoid a repeat of the situation. Mental Status Exam MSE Comments: This is a well-nourished, well-developed, white female, in hospital scrubs, with adequate grooming and eye contact. No abnormal movements, except for psychomotor retardation. Cooperative with exam in mild distress. Speech was normal rate and volume. Mood described as good; affect congruent, and less labile. Thought process, organized. Thought content: patient denied any suicidal or homicidal ideation, there were no delusions reported or noted, patient denied any auditory or visual hallucinations. Attention, concentration, and memory appeared intact, but none were formally tested. Alert and oriented times three. Insight and judgment are limited. Impulse control is limited. Vitals/I&O/Wt Last Vital Signs Temp 98.2 F 01/17/23 06:00 Pulse 78 01/17/23 06:00 Resp 16 01/17/23 06:00 BP 118/79 01/17/23 06:00 Pulse Ox 98 01/17/23 06:00 O2 Del Method Room Air 01/17/23 06:00 O2 Flow Rate 2 01/13/23 16:14 Physical Exam Urinary Catheter Management: Dugan: Cath Placed During This Visit: no Reason for Continuing Indwelling Catheter: Accurate Measurement of Urinary Ou tput in Critically Ill Patients Data NPU 01/14/23 02:52 01/14/23 02:52 A&P Assessment and plan (1) Hypoglycemia: (2) Suicide attempt by multiple drug overdose: (3) Bartholin gland cyst: (4) UTI (urinary tract infection): Qualifiers: Urinary tract infection type: acute cystitis Hematuria presence: with hematuria Qualified Code(s): N30.01 - Acute cystitis with hematuria (5) Acid reflux: Qualifiers: Esophagitis presence: with esophagitis Qualified Code(s): K21.0 - Gastro-esophageal reflux disease with esophagitis (6) Hiatal hernia: (7) Major depressive disorder, recurrent: (8) Borderline personality disorder: Plan This is a 42, almost 43-year-old, white female, with a limited history of mental health issues and treatment, who presents after a stay in the ICU secondary to an overdose, unable to fully explain her actions that led to that incident, currently on medication but with no significant follow-up outpatient treatment after a recent psychiatric hospitalization just a few months ago. 1.? Continue/restart current medication. Increased Lexapro to 20 mg p.o. daily 2.? Encourage individual, group, and milieu therapy. 3.? Continue q-15-minute checks for safety. 4. Attempt to get collateral information to gain a better understanding of t he situation and her risk for continued suicidal behavior. Involuntary Hold Information 96 Hour Hold: 96 Hour Involuntary Admission: Yes 96 Hour Hold Ending Date: 01/19/23 96 Hour Hold Ending Time: 17:00 Attestations NPU Medical Necessity Statement*: Inpatient hospitalization is medically necessary and the clinically appropriate intervention, at this time. We will monitor medications and make changes as indicated.Likely length of stay is 1-3 days. Coding Level of Care Code Acute Code for Chg Fwd Diagnoses Hypoglycemia E16.2 Suicide attempt by multiple drug overdose T50.912A Bartholin gland cyst N75.0 UTI (urinary tract infection) N30.01 Urinary tract infection type: acute cystitis Hematuria presence: with hematuria Acid reflux K21.0 Esophagitis presence: with esophagitis Hiatal hernia K44.9 Major depressive disorder, recurrent F33.9 Borderline personality disorder F60.3
[2023-01-17 14:00] VITALS: BP 115/80; PULSE 94; RESP 17; TEMP 36.5; O2SAT 98
[2023-01-17 20:28] VITALS: BP 119/81; PULSE 77; RESP 16; TEMP 36.8; O2SAT 99
[2023-01-17] MEDS: trazodone 50 mg Tablet PO (20:42)
[2023-01-18] MEDS: levothyroxine 50 mcg Tablet PO (05:49)
[2023-01-18 06:00] VITALS: BP 109/73; PULSE 84; RESP 18; TEMP 36.8; O2SAT 99
[2023-01-18] MEDS: escitalopram 10 mg Tablet 20 MG PO (08:26)
[2023-01-18] MEDS: BuSPIRONE 10 mg Tablet 30 MG PO (08:26)
[2023-01-18] MEDS: pantoprazole DR 40 mg Tablet PO (08:26)
--- NOTE | 2023-01-18 09:52 | P.NPUDS_ITS ---
Diagnoses at Discharge Discharge Diagnosis (1) Hypoglycemia: Status: Acute (2) Suicide attempt by multiple drug overdose: Status: Acute (3) Bartholin gland cyst: Status: Acute (4) UTI (urinary tract infection): Status: Acute Qualifiers: Hematuria presence: with hematuria Urinary tract infection type: acute cystitis Qualified Code(s): N30.01 - Acute cystitis with hematuria (5) Acid reflux: Status: Acute Qualifiers: Esophagitis presence: with esophagitis Qualified Code(s): K21.0 - Gastro-esophageal reflux disease with esophagitis (6) Hiatal hernia: Status: Acute (7) Major depressive disorder, recurrent: Status: Acute (8) Borderline personality disorder: Status: Acute Reason for Visit Reason for Visit: Overdose Brief History: Shabana Mancini is a 42 year old female who presented to the emergency department with the following report: Chief Complaint: Overdose Stated Complaint: Overdose Time Seen by Provider: 01/13/23 16:22 History of Present Illness: ? 42-year-old female brought to emergency room by EMS after overdosing on possible 19 to 25 tablets of Ambien and 2 Tylenol PM few hours ago.? According to her 17-year-old son patient left a vague message on the face book and upon arriving home patient was found to be lethargic and told the son that she overdosed on Ambien.? Upon present emergency room patient appeared to be lethargic but able to answer few questions.? Patient did review that she is depressed but did not give any reason why For definitive treatment of those issues and was evaluated and treated for her condition for a few days.? As she was improving the hospitalist called and identified a need for continued inpatient treatment and she was placed on a 96- hour hold and transferred to the neuropsychiatric unit for definitive treatment of those issues. The patient presents today reporting that she had been taking buspirone and Lexapro. She reports that she is here secondary to ?apparently? having an accidental overdose; she reports that she woke up in the ICU and doesn?t recall all of the events prior to that. But she states that this was related to ?bad advice and alcohol.? She reports that she had friends that advised her that pills and alcohol make things better. The patient reports that she has had one previous psychiatric hospitalization in [place], [place], in the last few months, and maybe when she was a little kid, stating that her mom had some issues and put her in there and her dad got her out. She denies recent outpatient services. She was supposed to follow up with [facility] but reports that they did not take her insurance. The patient reports that she has taken a few other psychiatric medications, but it has been so long ago that she cannot recall the names. The patient reports that she vapes, which she has done for about four months, and she used to smoke cigarettes but has not smoked in about three years. She endorses social alcohol use. She denies marijuana, cocaine, methamphetamine, opiates, mushrooms, ecstasy, LSD or any other illicit drug use. She denies drug rehabilitation, DUI, or other drug related charges. She reports that her mother had Polio when she was growing up, and she took on the responsibility of taking care of everyone because her dad worked and her mom was sick, and then her mom and she also took care of both of her sisters who had cancer. But she has struggled to reach out and get help for herself, reporting her friends look to her as being ?super woman? and everyone would be surprised she is here. She reports that she has seen many family members . She reports that for the most part her depression has been under control. But lately there have been a lot of things that have been overwhelming, financially and with her family. Her father went to the hospital recently and is 78 year sold, and she worries about him dying. Her son is getting ready to finish high school and she thinks about him leaving. She denies any history of suicidality or self-injurious behavior. She endorses sometimes feeling like giving up but not necessarily passive wish. She reports that she has a good support system. But she doesn?t necessarily want to bother them because everyone has things to deal with. She reports that her anxiety is mostly cognitive but with some physical manifestations with breathing. She denies obsessive compulsive behaviors. She denies nightmares or flashbacks. The patient expressed her desire to go home and related that she feels it is imperative that she be with her family. But explained the importance of getting more information about her overdose and further assessing the situation to make sure she has a safety net when she is discharged to prevent this from happening again. We discussed the risks, benefits, and alternatives of current medications, and we discussed her being on hold and the need for further evaluation, as stated above, and that we would take it one day at a time, and she understood and agreed to proceed as is documented in this note. PSYCHIATRIC HISTORY: As above. SUBSTANCE ABUSE HISTORY: As above.? FAMILY HISTORY: The patient denies being aware of mental health issues in her family. She endorses addiction issues on her mom?s side of the family, reports that her mo ther had a gambling addiction. She endorses suicide attempts in her family. DEVELOPMENTAL HISTORY: The patient endorses being premature and weighing 3 pounds at and had to go to the NICU in [place]. The patient reports learning to walk and talk and meeting developmental milestones on time. The patient denies speech therapy, learning support, emotional support, or special education classes. PSYCHOSOCIAL HISTORY: The patient reports that her mother and father were together at her , and stayed together until her mom passed. She reports that she is the only child from that union; and her mother had three children and her father had three children from previous relationships. She has one half-brother and two half- sisters from her mother and two half-brothers and one half-sister from her father. She reports that all three of her siblings from her mother are , two sisters had cancer and brother was killed in motorcycle accident. She describes her childhood as awesome. She denies neglect or emotional, physical, or sexual abuse. She denies CYS involvement or placement. She reports that she graduated from high school. She had a scholarship and played basketball and volleyball in college. She did not graduate from college due to going home to take care of her parents. She endorses being bisexual, with her longest relationship being eight years with a female. She has not been . She has one child, a 17-year-old son who is a senior. She denies service. She denies a sikhism belief system. 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 She reports that she currently lives in a house with her father and her son. LEGAL HISTORY: Denied. MEDICAL HISTORY: The patient denies any known allergies to medications. She reports that she has mitral valve prolapse and atrial septal defect and heart murmur. She reports she has had carpal tunnel surgery on both sides, tonsillectomy, incisional biopsy on right breast, right ankle surgery. She reports that her son was delivered vaginally. She reports that she started her menses when she was 10 to 11 years old. She reports that they were very irregular. Hospital Course Hospital Course She slowly acclimated to the individual, group and milieu therapies provided. She presented to the unit as a transfer from the ICU after an overdose on some of her medications. She had a fairly ambivalent attitude after admission. Essentially not identifying the real source or thinking of her suicide attempt. She presented fairly consistent with borderline personality disorder. And was very desirous to be discharged essentially immediately. We continued her medications minus the medication she overdosed on and ultimately increased her Lexapro to 20 mg p.o. daily. She worked with the social work team to get appropriate aftercare and follow-up. She had significant improvement during the stay and she was able to contract for safety outside the hospital prior to discharge.? During the hospitalization, patient had routine laboratory studies which were within normal limits except for few outliers.? Additionally there was a general medical evaluation which was also within normal limits and revealed no new acute processes.t There were concerns at admission prior to being transferred to the neuropsychiatric unit and those medical issues were managed in the ICU by the hospitalist. Discharge Summary: At the time of discharge, she denied psychosis or lethality.? Mood and anxiety were well managed.? Patient endorsed a plan to avoid all drugs of abuse and follow-up with the aftercare recommendations of the treatment team.? Patient was evaluated and deemed to be absent credible lethality, and had achieved the maximum benefit from an inpatient hospitalization, so was discharged. Involuntary Hold Information 96 Hour Hold: 96 Hour Involuntary Admission: Yes 96 Hour Hold Ending Date: 01/19/23 96 Hour Hold Ending Time: 17:00 Mental Status Exam MSE Comments: This is a well-nourished, well-developed, white female, in hospital scrubs, with adequate grooming and eye contact. No abnormal movements, except for psychomotor retardation. Cooperative with exam in mild distress. Speech was normal rate and volume. Mood described as good; affect congruent, and less labile. Thought process, organized. Thought content: patient denied any suicidal or homicidal i deation, there were no delusions reported or noted, patient denied any auditory or visual hallucinations. Attention, concentration, and memory appeared intact, but none were formally tested. Alert and oriented times three. Insight and judgment are limited. Impulse control is limited. Physical Exam Urinary Catheter Management: Dugan: Cath Placed During This Visit: no Reason for Continuing Indwelling Catheter: Accurate Measurement of Urinary Output in Critically Ill Patients Discharge Data Studies Completed and Pending: Laboratory Results WBC 5.37 10^3/uL (3.2 9-11.43) 01/14/23 02:52 RBC 4.70 10^6/uL (3.8 5-5.65) 01/14/23 02:52 Hgb 14.80 g/dL (11.27 -16.99) 01/14/23 02:52 Hct 43.5 % (36-47) 01/14/23 02:52 MCV 92.6 fl (85-98) 01/14/23 02:52 MCH 31.5 pg (27-33) 01/14/23 02:52 MCHC 34.0 g/dL (30-55) 01/14/23 02:52 RDW 11.9 % (12.1-15.1 ) L 01/14/23 02:52 Plt Count 229 10^3/cmm (157 -399) 01/14/23 02:52 MPV 9.7 fL (7.4-10.4) 01/14/23 02:52 Neut % (Auto) 51.1 % 01/14/23 02:52 Lymph % (Auto) 36.1 % 01/14/23 02:52 [place] % (Auto) 9.5 % 01/14/23 02:52 Eos % (Auto) 2.0 % 01/14/23 02:52 Baso % (Auto) 1.1 % 01/14/23 02:52 Neut # (Auto) 2.74 10^3/uL (1.8 -7.7) 01/14/23 02:52 Lymph # (Auto) 1.9 10^3/uL (0.8- 4.8) 01/14/23 02:52 [place] # (Auto) 0.5 10^3/uL (0.2- 0.9) 01/14/23 02:52 Eos # (Auto) 0.1 10^3/uL (0.0- 0.8) 01/14/23 02:52 Baso # (Auto) 0.1 10^3/uL (0.0- 0.1) 01/14/23 02:52 Nucleated RBC % (a uto) 0 % 01/14/23 02:52 Nucleated RBCs # 0.0 /100WBC 01/14/23 02:52 Sodium 140 mmol/L (136-1 45) 01/14/23 02:52 Potassium 4.4 mmol/L (3.5-5 .1) 01/14/23 02:52 Chloride 105 mmol/L (98-10 7) 01/14/23 02:52 Carbon Dioxide 27 mmol/L (22-29) 01/14/23 02:52 Anion Gap 12.4 (5-19) 01/14/23 02:52 BUN 5 mg/dL (6-20) L 01/14/23 02:52 Creatinine 0.9 mg/dL (0.5-0. 9) 01/14/23 02:52 GFR Calculation 68.0 mL/min (90-1 30) L 01/14/23 02:52 Glucose 86 mg/dL (65-115) 01/14/23 02:52 POC Glucose 113 mg/dL (70-110 ) H 01/14/23 11:49 Calculated Osmolal ity 287 mOsm/kg (285- 295) 01/14/23 02:52 Calcium 8.6 mg/dL (8.5-10 .5) 01/14/23 02:52 Magnesium 2.4 mg/dL (1.7-2. 3) H 01/13/23 15:09 Total Bilirubin 0.4 mg/dL (0.15-1 .2) 01/14/23 02:52 AST 13 U/L (0-32) 01/14/23 02:52 ALT 10 U/L (0-33) 01/14/23 02:52 Alkaline Phosphata se 69 U/L (35-105) 01/14/23 02:52 Total Protein 6.5 g/dL (6.6-8.7 ) L 01/14/23 02:52 Albumin 3.8 g/dL (3.5-5.2 ) 01/14/23 02:52 Globulin 2.7 g/dL (1.3-4.6 ) 01/14/23 02:52 HCG, Qual Negative (Negati ve) 01/13/23 16:47 Salicylates < 0.3 mg/dL (3-10 ) L 01/13/23 15:09 Urine Opiates Scre en Negative ng/mL (N egative) 01/13/23 23:00 Acetaminophen 7.2 ug/mL (10-30) L 01/14/23 00:23 Ur Barbiturates Sc reen Negative ng/mL (N egative) 01/13/23 23:00 Ur Phencyclidine S crn Negative ng/mL (N egative) 01/13/23 23:00 Ur Amphetamines Sc reen Positive ng/mL (N egative) H 01/13/23 23:00 U Benzodiazepines Scrn Negative ng/mL (N egative) 01/13/23 23:00 Urine Cocaine Scre en Negative ng/mL (N egative) 01/13/23 23:00 U Marijuana (THC) Screen Negative ng/mL (N egative) 01/13/23 23:00 Vitals: Last Vital Signs Temp 98.3 F 01/18/23 06:00 Pulse 84 01/18/23 06:00 Resp 18 01/18/23 06:00 BP 109/73 01/18/23 06:00 Pulse Ox 99 01/18/23 06:00 O2 Del Method Room Air 01/18/23 06:00 O2 Flow Rate 2 01/13/23 16:14 Discharge Plan Discharge Patient Disposition: Home Condition: Stable Prescriptions: New escitalopram oxalate 20 mg tablet 20 mg PO DAILY 30 Days Qty: 30 1RF trazodone 50 mg Tablet 50 mg PO BEDTIME PRN (Reason: Sleep) 30 Days Qty: 30 1RF Continued ropinirole 0.5 mg tablet 0.5 - 1 mg PO BEDTIME acetaminophen 500 mg capsule 500 mg PO Q6H PRN (Reason: Pain) melatonin 10 mg capsule 10 mg PO DAILY metoprolol succinate 50 mg tablet extended release 24 hr 50 mg PO QAM amlodipine 5 mg tablet 5 mg PO QAM pantoprazole 40 mg tablet,delayed release (DR/EC) 40 mg PO BID 30 Days Qty: 60 1RF buspirone 30 mg tablet 30 mg PO TID 30 Days Qty: 90 1RF levothyroxine 50 mcg capsule 50 mcg PO DAILY 30 Days Qty: 30 1RF Discontinued buspirone 15 mg tablet 30 mg PO TID zolpidem 10 mg tablet 10 mg PO BEDTIME phentermine 37.5 mg tablet 37.5 mg PO QAM escitalopram oxalate 5 mg tablet 15 mg PO QAM Discharge Orders: Discharge Order (Routine); Ordered 01/18/23 Ordered By: Guanako Yanez Referrals: [facility] [Other] - 01/23/23 2:00 pm Jose Fulton MD [Primary Care Provider] - 01/24/23 3:00 pm (Follow up) Discharge Diet: Regular Discharge Activity: Resume usual activity Patient Instructions: Trazodone (By mouth) (Desyrel, Desyrel Dividose, Oleptro, Trazamine), Escitalopram (By mouth) (Lexapro), Depression (DC), Help Prevent Suicide (DC), Borderline Personality Disorder (GEN), Opioid Safety (ED), Suicide Prevention (GEN), Opioid Safety Discharge Attestations NPU Time Spent in Discharge Care*: less than 30 min Specific Discharge Activities: Specific discharge activities: educating patient, discussing with continuous pillowcase cutter/social workers/dc planners, docu menting/other paperwork and evaluating patient/reviewing data Coding Level of Care Code Acute Chg FW DC note Diagnoses Hypoglycemia E16.2 Suicide attempt by multiple drug overdose T50.912A Bartholin gland cyst N75.0 UTI (urinary tract infection) N30.01 Hematuria presence: with hematuria Urinary tract infection type: acute cystitis Acid reflux K21.0 Esophagitis presence: with esophagitis Hiatal hernia K44.9 Major depressive disorder, recurrent F33.9 Borderline personality disorder F60.3
[2023-01-18 10:08] VITALS: BP 109/73; PULSE 84; RESP 18; TEMP 36.8; O2SAT 99
== END 2023-01-18 12:30 | disposition home or self-care (01) | DRG 918 ==
LOC: ER 17:17 → ICU 17:41 → NP 01-15 08:42
PROVIDERS: Internal Medicine; Admitting Provider Psychiatry & Neurology Psychiatry; Emergency Provider Family Medicine; PCP Internal Medicine; Visit Provider Psychiatry & Neurology Psychiatry
DX: T42.6X2A Poisoning by other antiepileptic and sedative-hypnotic drugs, intentional self-harm, initial encounter (principal); R45.851 Suicidal ideations; G93.40 Encephalopathy, unspecified; T39.1X2A Poisoning by 4-Aminophenol derivatives, intentional self-harm, initial encounter; T51.92XA Toxic effect of unspecified alcohol, intentional self-harm, initial encounter; F32.A Depression, unspecified; F17.290 Nicotine dependence, other tobacco product, uncomplicated; F41.9 Anxiety disorder, unspecified; Z81.8 Family history of other mental and behavioral disorders; I34.1 Nonrheumatic mitral (valve) prolapse; E16.2 Hypoglycemia, unspecified; E87.6 Hypokalemia; K21.9 Gastro-esophageal reflux disease without esophagitis
CPT/HCPCS: 36415; 36416; 80053; 80306; 80307; 81025; 82962; 83735; 85025; 93005; 97150; 97165; 99285; C9113; J3480

== ENCOUNTER 2023-05-16 18:27 | Emergency (ER) | payer OTHER, MEDICAID, SELFPAY ==
[2023-05-16 18:37] VITALS: BP 131/96; PULSE 101; RESP 16; TEMP 36.9; O2SAT 97; BMI 34.5
[2023-05-16 19:00] VITALS: BP 114/81; PULSE 81; RESP 14; O2SAT 97
--- NOTE | 2023-05-16 19:26 | XRR_ITS ---
PROCEDURE INFORMATION: Exam: XR Chest Exam date and time: 05/16/2023 7:34 PM Age: 43 years old Clinical indication: Other: Pain on inspiration; Additional info: Pain, thoracic pain with inspiration TECHNIQUE: Imaging protocol: Radiologic exam of the chest. Views: 1 view. COMPARISON: CR XR chest 1V portable [id number] 08/03/2022 8:41 PM FINDINGS: Lungs: No focal consolidation. Pleural spaces: No evidence of pneumothorax. No evidence of pleural effusion. Heart/Mediastinum: Cardiomediastinal silhouette is within normal limits. Bones/joints: No evidence of acute osseous abnormality. XR/XR chest 1V [id number] IMPRESSION: 1. No acute cardiopulmonary abnormality.
--- NOTE | 2023-05-16 19:27 | ED_ITS ---
HPI - Back Pain/Injury General: Chief Complaint: Upper Respiratory Infection Stated Complaint: pressure/pain from under arms to waist Time Seen by Provider: 05/16/23 18:44 Source: patient Mode of arrival: ambulatory Limitations: no limitations History of Present Illness: Patient presents emergency department today for evaluation treatment of various symptoms. She states that over a week ago she started having bilateral lower back pain. She thought at first she may be developing some urinary issues so she began drinking concentrated cranberry juice. However, as the week has progressed her pain has started to travel up her back. She complains of almost full circumferential pain extending from below the axillary region down to the top of her hip bones. She notices pain is worse when she tries to take a deep breath in but, does not notice that range of motion or turning of her torso makes the pain any worse. She denies specific chest pains. She has not felt specifically short of breath. She has not been ill recently with cough or cold symptoms. She has not been running fevers. She denies urinary symptoms but, reports a history of vesicular reflux in her early 20s. She has not had similar issues since. Patient does have a hiatal hernia. She reports a globus sensation at the base of her throat when her symptoms are acting up but states this is not the same sensation. She reports taking pantoprazole twice a day regularly for her chronic reflux symptoms. Review of Systems General: Reports: 10 or more systems reviewed and unremarkable except in HPI and below PFSH ED PFSH: Medical History Mitral valve prolapse Hx of renal calculi Acid reflux Hiatal hernia Surgical History Hx of breast biopsy Hx of tonsillectomy History of carpal tunnel release of both wrists History of esophagogastroduodenoscopy (EGD) Family History Father Cancer bladder, prostate Hypertension Diabetes Sister Cancer breast Mother Stroke Social History Smoking and tobacco/nicotine status: former use of tobacco/nicotine Alcohol intake: current Alcohol intake frequency: holidays/special occasions only Substance/Drug Use: never Adopted: No Caregiver/support person: No Lives independently: No Household members: significant other and family Housing: House Marital status: Single Number of children: 1 service: No Current occupational status: unemployed Current gender identity: Female Physical Exam Const: COMMON NORMALS: no acute distress, patient oriented x3 and alert HENMT: COMMON NORMALS: normocephalic, atraumatic and hearing grossly normal bilaterally HEAD & SCALP: normocephalic and atraumatic Eye: COMMON NORMALS: Equal, round and reactive pupils present, EOMs intact bilaterally and conjunctivae normal CONJUNCTIVA: Yes conjunctivae normal PUPIL: Yes Equal, round and reactive pupils present Neck/C-Spine: COMMON NORMALS: full ROM and no JVD Lymph: LYMPHATIC: no lymphadenopathy noted Chest: OTHER: No signs of costochondritis Resp: COMMON NORMALS: normal respiratory effort, No retractions and No use of accessory muscles Cardio: COMMON NORMALS: no JVD, regular rate and regular rhythm RATE: regular rate RHYTHM: regular rhythm Back/Pelvis: OTHER: Patient without obvious reproducible tenderness on palpation of her back. Extremity: NARRATIVE EXTREMITY EXAM: Patient demonstrates full range of motion to the extremities. Patient able to adduct and abduct her arms. Patient is able to turn her torso as well as stand to sit unassisted. She is independently ambulatory here in the emergency department. Neuro: COMMON NORMALS: patient oriented x3 SENSORIUM/ORIENTATION: Yes alert Psych: COMMON NORMALS: mental status grossly normal, Normal thought process present, cooperative and normal affect THOUGHT PROCESS: Normal thought process present Skin: COMMON NORMALS: no rashes or lesions noted and turgor normal GENERAL SKIN EXAM: no rashes or lesions noted and turgor normal Course Vital Signs: Vital signs: Vital Signs Temperature 98.5 F 05/16/23 18:37 Pulse Rate 81 05/16/23 21:11 Respiratory Rate 16 05/16/23 21:11 Blood Pressure 115/80 05/16/23 21:11 Pulse Oximetry 97 05/16/23 21:11 Oxygen Delivery Me thod Room Air 05/16/23 19:00 MDM - Back Pain/Injury Medical Decision Making Patient presented to the emergency department today with somewhat vague symptoms of overall trunk pain and some urinary issues. Patient's urinalysis revealed no acute concerns. Chest x-ray showed no underlying issues as well. Will treat for musculoskeletal discomfort at this time. 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 We did discuss taking it easy for the next couple of days. Note for her employer provided as we discussed caution with the use of muscle relaxers. Patient was given return precautions for change or worsening in her condition. Patient verbalizes understanding and agreement to treatment plan. Differential Diagnosis Likely strain of lumbar region and thoracic back pain; Unlikely lumbar radiculopathy, sciatica, renal colic or pyelonephritis Labs Radiology Impressions Chest X-Ray 05/16/23 19:26 IMPRESSION: 1. No acute cardiopulmonary abnormality. Laboratory Results Urine Color Yellow (Yellow) 05/16/23 19:53 Urine Appearance Clear (CLEAR) 05/16/23 19:53 Urine pH 5 (5-7) 05/16/23 19:53 Ur Specific [place] 1.020 (1.005-1.030) 05/16/23 19:53 Urine Protein Neg (Negative) 05/16/23 19:53 Urine Glucose (UA) Norm (Normal) 05/16/23 19:53 Urine Ketones 1+ (Negative) H 05/16/23 19:53 Urine Blood Neg (Negative) 05/16/23 19:53 Urine Nitrate Negative (Negative) 05/16/23 19:53 Urine Bilirubin Neg (Negative) 05/16/23 19:53 Urine Urobilinogen Norm mg/dL (Negative) 05/16/23 19:53 Ur Leukocyte Esterase Negative (Negative) 05/16/23 19:53 All radiology interpretation(s) finalized by discharge Discharge Plan Discharge Patient Disposition: Home Clinical Impression: Musculoskeletal back pain, Musculoskeletal chest pain Condition: Stable Prescriptions: New tizanidine 4 mg tablet 4 mg PO TID PRN (Reason: muscle spasticity) Qty: 21 0RF methylprednisolone 4 mg tablets,dose pack See Rx Instructions PO .COMPLEX Qty: 21 0RF Rx Instructions: orally per package directions naproxen 500 mg tablet 500 mg PO BID PRN (Reason: pain) Qty: 20 0RF No Action ropinirole 0.5 mg tablet 0.5 - 1 mg PO BEDTIME acetaminophen 500 mg capsule 500 mg PO Q6H PRN (Reason: Pain) melatonin 10 mg capsule 10 mg PO DAILY metoprolol succinate 50 mg tablet extended release 24 hr 50 mg PO QAM amlodipine 5 mg tablet 5 mg PO QAM escitalopram oxalate 20 mg tablet 20 mg PO DAILY 30 Days Qty: 30 1RF trazodone 50 mg Tablet 50 mg PO BEDTIME PRN (Reason: Sleep) 30 Days Qty: 30 1RF pantoprazole 40 mg tablet,delayed release (DR/EC) 40 mg PO BID 30 Days Qty: 60 1RF buspirone 30 mg tablet 30 mg PO TID 30 Days Qty: 90 1RF levothyroxine 50 mcg capsule 50 mcg PO DAILY 30 Days Qty: 30 1RF Discharge Orders: Discharge ED (Routine); Ordered 05/16/23 Ordered By: Alexa Thomas Referrals: Jose Fulton MD [Primary Care Provider] - Discharge Diet: Usual diet Discharge Activity: Increase activity as tolerated Patient Instructions: Musculoskeletal Pain (ED) Activity Restrictions/Additional Instructions: X-ray today revealed no acute concerns as indicated from the radiologist. Urinalysis is clear. For that reason I will treat for musculoskeletal pain. Be aware that the tizanidine can cause drowsiness and sedation so do not take this medication while driving, working, or drinking alcohol. I do recommend applying heating pads for 15 to 20 minutes multiple times throughout the day and areas of discomfort. Closely monitor your symptoms for any change or worsening including any new onset cough, fevers, change or worsening of your pains. Stand Alone Forms: Work/School Release Coding Level of Care Code ED Emergency Communications Officer for Stephany Sanders
[2023-05-16 19:53] LABS: Add Urine Microscopic? NO; Charge for UA Resulting for Rev
[2023-05-16 20:16] LABS: Bilirubin Urine Neg (Negative); Blood Urine Neg (Negative); Glucose Urine UA Norm (Normal); Ketones Urine 1+ (Negative); Leukocyte Esterase Urine Negative (Negative); Nitrate Urine Negative (Negative); Protein Urine Neg (Negative); Urine Appearance Clear (CLEAR); Urine Color Yellow (Yellow); Urobilinogen Urine Norm (Negative); pH Urine 5 (5-7)
[2023-05-16] MEDS: ketorolac 60 mg/2 mL INJ IM (20:47)
[2023-05-16] MEDS: dexamethasone 10 mg/mL INJ IM (20:47)
[2023-05-16] MEDS: tizanidine 4 mg Tablet PO (20:47)
[2023-05-16 21:11] VITALS: BP 115/80; PULSE 81; RESP 16; O2SAT 97
== END 2023-05-16 21:11 | disposition home or self-care (01) ==
PROVIDERS: Emergency Provider Physician Assistant; PCP Internal Medicine
DX: M54.50 Low back pain, unspecified (principal); R07.9 Chest pain, unspecified; Z87.891 Personal history of nicotine dependence
CPT/HCPCS: 71045; 81003; 96372; 99284; J1100; J1885

== ENCOUNTER 2023-12-01 20:40 | Emergency (ER) | payer SELFPAY ==
[2023-12-01 20:53] VITALS: BP 150/94; PULSE 103; RESP 18; TEMP 37.3; O2SAT 98; BMI 34.3
--- NOTE | 2023-12-01 20:55 | ECG_ITS ---
[facility] Test Date: 2023-12-01 Pat Name: Shabana Mancini Department: Room: Gender: Female Anesthetic Assistant: : 1980 Requested By: Jose Ross Order Number: [id number] Eldon MD: Owen Solorio M.D. Measurements Intervals [place] Rate: 102 P: 47 PA: 134 QRS: 23 QRSD: 93 T: 45 QT: 344 QTc: 449 Interpretive Statements SINUS TACHYCARDIA POSSIBLE LEFT ATRIAL ENLARGEMENT [-0.1mV P-WAVE IN V1/V2] LOW QRS VOLTAGE IN PRECORDIAL LEADS [QRS DEFLECTION < 1.0 mV IN CHEST LEADS] Compared to ECG 01/14/2023 08:13:17 Low QRS voltage now present Sinus rhythm no longer present T-wave abnormality no longer present Possible ischemia no longer present Electronically Signed On 12-02-2023 7:20:24 CDT by Owen Solorio M.D. [id number]
[2023-12-01 23:03] LABS: Basophils % 0.7 %; Eosinophils % 0.7 %; Hematocrit 40.3 % (36-47); Lymphocytes # 1.3 10^3/uL (0.8-4.8); Lymphocytes % 30.6 %; Mean Corpuscular HGB Conc 31.5 g/dL (30-55); Mean Corpuscular Hemoglobin 26.6 pg (27-33); Mean Corpuscular Volume 84.5 fl (85-98); Mean Platelet Volume 10.2 fL (7.4-10.4); Monocytes # 0.6 10^3/uL (0.2-0.9); Monocytes % 15.2 %; Neutrophils # 2.22 10^3/uL (1.8-7.7); Neutrophils % 52.6 %; Nucleated Red Blood Cells % 0 %; Platelet Count 214 10^3/cmm (157-399); Red Blood Count 4.77 10^6/uL (3.85-5.65); Red Cell Distribution Width 13.2 % (12.1-15.1); White Blood Count 4.22 10^3/uL (3.29-11.43)
[2023-12-01 23:23] LABS: Troponin(5th) Baseline < 6 ng/L (0-10)
[2023-12-01 23:29] LABS: Anion Gap 14.9 (5-19); Blood Urea Nitrogen 10 mg/dL (6-20); Calcium 8.7 mg/dL (8.5-10.5); Carbon Dioxide 24 mmol/L (22-29); Chloride 104 mmol/L (98-107); Creatinine Clr Calc Pharmacy 83.0414; Glomerular Filtration Rate 67.7 mL/min (90-130); Glucose 102 mg/dL (65-115); Osmolality Calculated 287 mOsm/kg (285-295); Potassium 3.9 mmol/L (3.5-5.1); Sodium 139 mmol/L (136-145)
--- NOTE | 2023-12-02 00:51 | ECG_ITS ---
[facility] Test Date: 2023-12-02 Pat Name: Shabana Mancini Department: Room: Gender: Female Otologist: : 1980 Requested By: Kayode Leblanc Order Number: [id number] Eldon MD: Owen Solorio M.D. Measurements Intervals [place] Rate: 76 P: 30 NM: 142 QRS: 27 QRSD: 85 T: 40 QT: 391 QTc: 442 Interpretive Statements SINUS RHYTHM LOW QRS VOLTAGE IN PRECORDIAL LEADS [QRS DEFLECTION < 1.0 mV IN CHEST LEADS] Compared to ECG 12/01/2023 20:43:50 Sinus tachycardia no longer present Electronically Signed On 12-02-2023 7:20:53 CDT by Owen Solorio M.D. [id number]
[2023-12-02 01:28] LABS: Troponin 5 2HR Delta 0.00001 ABS# (0-10)
--- NOTE | 2023-12-02 02:23 | XRR_ITS ---
PROCEDURE INFORMATION: Exam: XR Chest Exam date and time: 12/02/2023 2:25 AM Age: 43 years old Clinical indication: Chest pressure; Patient HX: C/O chest pain; Additional info: Cp TECHNIQUE: Imaging protocol: Radiologic exam of the chest. Views: 1 view. COMPARISON: CR XR chest 1V [id number] 05/16/2023 7:34 PM FINDINGS: Lungs: No consolidation. Pleural spaces: No pleural effusion. No pneumothorax. Heart/Mediastinum: No cardiomegaly. Bones/joints: No acute findings. XR/XR chest 1V portable [id number] IMPRESSION: No acute chest findings.
[2023-12-02 03:29] VITALS: BP 143/112; PULSE 90; RESP 16; O2SAT 96
[2023-12-02 03:33] LABS: SARS Covid-2 Antigen Positive (Negative)
--- NOTE | 2023-12-02 06:18 | W.ED.CHESTPA ---
HPI - Chest Pain General: Chief Complaint: Chest Pain Stated Complaint: CP Time Seen by Provider: 12/02/23 01:42 History of Present Illness: 43-year-old female with no prior history of coronary disease. She presents with chest pain starting yesterday at 5 AM that woke her from sleep. She has had continued pain on and off, at work as well. She had some shortness of breath with it. She has been congested with a cough productive of clear to white sputum of late. She notes that she was nauseated. Related Data Home Medications Medication Instructions Recorded Confirmed acetaminophen 500 mg capsule 500 mg PO Q6H PRN Pain 06/14/22 03/29/23 melatonin 10 mg capsule 10 mg PO DAILY 06/14/22 03/29/23 ropinirole 0.5 mg tablet 0.5 - 1 mg PO BEDTIME 06/14/22 03/29/23 amlodipine 5 mg tablet 5 mg PO QAM 01/13/23 03/29/23 metoprolol succinate 50 mg 50 mg PO QAM 01/13/23 03/29/23 tablet,extended release 24 hr Previous Rx's Medication Instructions Recorded buspirone 30 mg tablet 30 mg PO TID 30 days #90 tabs 01/18/23 escitalopram oxalate 20 mg tablet 20 mg PO DAILY 30 days #30 tabs 01/18/23 levothyroxine 50 mcg capsule 50 mcg PO DAILY 30 days #30 caps 01/18/23 pantoprazole 40 mg tablet,delayed 40 mg PO BID 30 days #60 tabs 01/18/23 release trazodone 50 mg tablet 50 mg PO BEDTIME PRN Sleep 30 days 01/18/23 #30 tabs naproxen 500 mg tablet 500 mg PO BID PRN pain #20 tabs 05/16/23 tizanidine 4 mg tablet 4 mg PO TID PRN muscle spasticity 05/16/23 #21 tabs methylprednisolone 4 mg tablets in See Rx Instructions PO .COMPLEX 12/02/23 a dose pack #21 ea Allergies Allergy/AdvReac Type Severity Reaction Status Date / Time No Known Allergies Allergy Verified 05/16/23 18:37 [facility] ED PFSH: Medical History Mitral valve prolapse Hx of renal calculi Acid reflux Hiatal hernia Surgical History Hx of breast biopsy Hx of tonsillectomy History of carpal tunnel release of both wrists History of esophagogastroduodenoscopy (EGD) Family History Father Cancer bladder, prostate Hypertension Diabetes Sister Cancer breast Mother Stroke Social History Smoking and tobacco/nicotine status: former use of tobacco/nicotine Alcohol intake: current Alcohol intake frequency: holidays/special occasions only Substance/Drug Use: never Adopted: No Caregiver/support person: No Lives independently: No Household members: significant other and family Housing: House Marital status: Single Number of children: 1 service: No Current occupational status: unemployed Current gender identity: Female Physical Exam Const: COMMON NORMALS: no acute distress GENERAL APPEARANCE: cooperative; not ill appearing and not frail appearing HENMT: COMMON NORMALS: normocephalic, atraumatic and Normal external nose present HEAD & SCALP: normocephalic and atraumatic FACE & SINUS: normal facial exam and face symmetric NOSE: Normal external nose present Eye: COMMON NORMALS: Equal, round and reactive pupils present and EOMs intact bilaterally PUPIL: Yes Equal, round and reactive pupils present Neck/C-Spine: GENERAL: Yes trachea midline Chest: CHEST: Yes Symmetrical chest wall rise Resp: COMMON NORMALS: normal respiratory effort, No retractions, No use of accessory muscles and clear to auscultation bilaterally AUSCULTATION: clear to auscultation bilaterally Cardio: COMMON NORMALS: regular rate and regular rhythm RATE: regular rate RHYTHM: regular rhythm GI: COMMON NORMALS: Normal to inspection, nondistended, normoactive bowel sounds present Extremity: COMMON NORMALS: no pedal edema Neuro: DARLENE COMA SCALE: document GCS findings Darlene coma scale eye opening: Spontaneous [place] coma scale verbal response: Orientated Darlene coma scale motor response: Obey commands Darlene coma scale total score: 15 SENSORY EXAM: Yes extremities (intact) Psych: COMMON NORMALS: speech normal SPEECH: Yes normal speech Skin: COMMON NORMALS: no rashes or lesions noted GENERAL SKIN EXAM: no rashes or lesions noted Course Vital Signs: Vital signs: Vital Signs Temperature 99.1 F 12/01/23 20:53 Pulse Rate 90 08/31/24 03:29 Respiratory Rate 16 12/02/23 03:29 Blood Pressure 143/112 12/02/23 03:29 Pulse Oximetry 96 12/02/23 03:29 Oxygen Delivery Me thod Room Air 12/01/23 20:53 MDM - Chest Pain Medical Decision Making Chest x-ray is negative. CBC is normal. BMP is normal. Temperature is 99.1. 2-hour delta troponin is 0. She was released prior to COVID antigen test resulting. It is positive. She will call back for results. She is placed on a tapering dose of steroid for chest wall inflammation, likely related to COVID. Lab Data 12/01/23 22:58 12/01/23 22:58 Radiology Impressions Chest X-Ray 12/02/23 02:23 IMPRESSION: No acute chest findings. Laboratory Results WBC 4.22 10^3/uL (3.29-11.43) 12/01/23 22:58 RBC 4.77 10^6/uL (3.85-5.65) 12/01/23 22:58 Hgb 12.70 g/dL (11.27-16.99) 12/01/23 22:58 Hct 40.3 % (36-47) 12/01/23 22:58 MCV 84.5 fl (85-98) L 12/01/23 22:58 MCH 26.6 pg (27-33) L 12/01/23 22:58 MCHC 31.5 g/dL (30-55) 12/01/23 22:58 RDW 13.2 % (12.1-15.1) 12/01/23 22:58 Plt Count 214 10^3/cmm (157-399) 12/01/23 22:58 MPV 10.2 fL (7.4-10.4) 12/01/23 22:58 Neut % (Auto) 52.6 % 12/01/23 22:58 Lymph % (Auto) 30.6 % 12/01/23 22:58 [place] % (Auto) 15.2 % 12/01/23 22:58 Eos % (Auto) 0.7 % 12/01/23 22:58 Baso % (Auto) 0.7 % 12/01/23 22:58 Neut # (Auto) 2.22 10^3/uL (1.8-7.7) 12/01/23 22:58 Lymph # (Auto) 1.3 10^3/uL (0.8-4.8) 12/01/23 22:58 Gordon # (Auto) 0.6 10^3/uL (0.2-0.9) 12/01/23 22:58 Eos # (Auto) 0.0 10^3/uL (0.0-0.8) 12/01/23 22:58 Baso # (Auto) 0.0 10^3/uL (0.0-0.1) 12/01/23 22:58 Nucleated RBC % (auto) 0 % 12/01/23 22:58 Nucleated RBCs # 0.0 /100WBC 12/01/23 22:58 Sodium 139 mmol/L (136-145) 12/01/23 22:58 Potassium 3.9 mmol/L (3.5-5.1) 12/01/23 22:58 Chloride 104 mmol/L (98-107) 12/01/23 22:58 Carbon Dioxide 24 mmol/L (22-29) 12/01/23 22:58 Anion Gap 14.9 (5-19) 12/01/23 22:58 BUN 10 mg/dL (6-20) 12/01/23 22:58 Creatinine 0.9 mg/dL (0.5-0.9) 12/01/23 22:58 GFR Calculation 67.7 mL/min (90-130) L 12/01/23 22:58 Glucose 102 mg/dL (65-115) 12/01/23 22:58 Calculated Osmolality 287 mOsm/kg (285-295) 12/01/23 22:58 Calcium 8.7 mg/dL (8.5-10.5) 12/01/23 22:58 Troponin T Baseline < 6 ng/L (0-10) 12/01/23 22:58 Troponin T 120 Minute 6.00 ng/L (0-10) 12/02/23 01:02 Delta Troponin T 0.11588 ABS# (0-10) 12/02/23 01:02 SARS-CoV-2 Ag (Rapid) Positive (Negative) H 12/02/23 03:02 All radiology interpretation(s) finalized by discharge Discharge Plan Discharge Patient Disposition: Home Clinical Impression: Chest pain Condition: Stable Prescriptions: Continued methylprednisolone 4 mg tablets,dose pack See Rx Instructions PO .COMPLEX Qty: 21 0RF Rx Instructions: orally per package directions No Action ropinirole 0.5 mg tablet 0.5 - 1 mg PO BEDTIME acetaminophen 500 mg capsule 500 mg PO Q6H PRN (Reason: Pain) melatonin 10 mg capsule 10 mg PO DAILY metoprolol succinate 50 mg tablet extended release 24 hr 50 mg PO QAM amlodipine 5 mg tablet 5 mg PO QAM escitalopram oxalate 20 mg tablet 20 mg PO DAILY 30 Days Qty: 30 1RF trazodone 50 mg Tablet 50 mg PO BEDTIME PRN (Reason: Sleep) 30 Days Qty: 30 1RF pantoprazole 40 mg tablet,delayed release (DR/EC) 40 mg PO BID 30 Days Qty: 60 1RF buspirone 30 mg tablet 30 mg PO TID 30 Days Qty: 90 1RF levothyroxine 50 mcg capsule 50 mcg PO DAILY 30 Days Qty: 30 1RF tizanidine 4 mg tablet 4 mg PO TID PRN (Reason: muscle spasticity) Qty: 21 0RF naproxen 500 mg tablet 500 mg PO BID PRN (Reason: pain) Qty: 20 0RF Discharge Orders: Discharge ED (Routine); Ordered 12/02/23 Ordered By: Kayode Pelayo Referrals: Jose Fulton MD [Primary Care Provider] - 1-3 days Patient Instructions: Chest Pain (ED) Activity Restrictions/Additional Instructions: Medication is for chest wall inflammation. Take as directed. Return for worsening pain despite treatment, shortness of breath, fever, other concerning symptoms. See your doctor next week. Call back for your COVID-19 swab results. Coding Level of Care Code ED Truss Maker for Stephany Sanders
== END 2023-12-02 03:05 | disposition home or self-care (01) ==
PROVIDERS: Emergency Provider Emergency Medicine; PCP Internal Medicine
DX: R07.9 Chest pain, unspecified (principal); U07.1 COVID-19; Z87.891 Personal history of nicotine dependence
CPT/HCPCS: 36415; 71045; 80048; 84484; 85025; 87426; 93005; 99285

== ENCOUNTER 2024-03-28 09:28 | Emergency (ER) | payer SELFPAY ==
[2024-03-28 09:37] VITALS: BP 134/83; PULSE 91; RESP 16; TEMP 36.6; O2SAT 100; BMI 33.6
[2024-03-28 09:39] VITALS: BP 134/83; PULSE 91; RESP 16; TEMP 36.6; O2SAT 100
--- NOTE | 2024-03-28 10:11 | W.ED.SKABFB ---
HPI - Skin/Abscess/Foreign Bdy General: Chief complaint: Skin/Abscess/Foreign Body Stated complaint: Rash Time Seen by Provider: 03/28/24 09:40 History of Present Illness: 44-year-old female is presenting with a pruritic generalized rash for the past 4 to 5 days associated with no shortness of breath, oropharyngeal swelling, dizziness, did have some diarrhea today. She started amoxicillin approximately 1 week ago for a sinus infection. She denies any fevers or chills no chest pain no shortness of breath. No previous allergies to amoxicillin or otherwise. Denies any other potential triggers that are new. Associated symptoms: Deny vomiting Related Data Home Medications Medication Instructions Recorded Confirmed acetaminophen 500 mg capsule 500 mg PO Q6H PRN Pain 06/14/22 03/29/23 melatonin 10 mg capsule 10 mg PO DAILY 06/14/22 03/29/23 ropinirole 0.5 mg tablet 0.5 - 1 mg PO BEDTIME 06/14/22 03/29/23 amlodipine 5 mg tablet 5 mg PO QAM 01/13/23 03/29/23 metoprolol succinate 50 mg 50 mg PO QAM 01/13/23 03/29/23 tablet,extended release 24 hr Previous Rx's Medication Instructions Recorded buspirone 30 mg tablet 30 mg PO TID 30 days #90 tabs 01/18/23 escitalopram oxalate 20 mg tablet 20 mg PO DAILY 30 days #30 tabs 01/18/23 levothyroxine 50 mcg capsule 50 mcg PO DAILY 30 days #30 caps 01/18/23 pantoprazole 40 mg tablet,delayed 40 mg PO BID 30 days #60 tabs 01/18/23 release trazodone 50 mg tablet 50 mg PO BEDTIME PRN Sleep 30 days 01/18/23 #30 tabs naproxen 500 mg tablet 500 mg PO BID PRN pain #20 tabs 05/16/23 tizanidine 4 mg tablet 4 mg PO TID PRN muscle spasticity 05/16/23 #21 tabs methylprednisolone 4 mg tablets in See Rx Instructions PO .COMPLEX 12/02/23 a dose pack #21 ea Allergies Allergy/AdvReac Type Severity Reaction Status Date / Time amoxicillin Allergy rash Verified 03/28/24 10:10 Review of Systems Eyes: Denies: blurry vision, eye discharge or eye redness ENMT: Denies: throat pain, hoarseness or swelling of lips/tongue Card: Denies: chest pain or palpitations Resp: Denies: dyspnea or productive cough GI: Reports: diarrhea; Denies: abdominal pain or vomiting : Denies: difficulty voiding, dysuria or urinary frequency Musc: Denies: neck pain, extremity pain or extremity swelling Skin/Breast: Reports: rash and pruritus Neuro: Denies: headache(s), numbness in extremities or weakness in extremities Psych: Denies: depression Jimmy/Lymph: Denies: easy bruising or easy bleeding All/Imm: Reports: urticaria PFSH ED PFSH: Medical History Mitral valve prolapse Hx of renal calculi Acid reflux Hiatal hernia Surgical History Hx of breast biopsy Hx of tonsillectomy History of carpal tunnel release of both wrists History of esophagogastroduodenoscopy (EGD) Family History Father Cancer bladder, prostate Hypertension Diabetes Sister Cancer breast Mother Stroke Social History Smoking and tobacco/nicotine status: former use of tobacco/nicotine Alcohol intake: current Alcohol intake frequency: holidays/special occasions only Substance/Drug Use: never Adopted: No Caregiver/support person: No Lives independently: No Household members: significant other and family Housing: House Marital status: Single Number of children: 1 service: No Current occupational status: unemployed Current gender identity: Female Physical Exam Narrative: EXAM NARRATIVE: Const: no acute distress, cooperative, well appearing HENMT: normocephalic, atraumatic, normal facial exam, posterior oropharynx normal w/ no tonsillar erythema or exudates Eye: Equal, round and reactive pupils present and EOMs intact bilaterally Neck/C-Spine: trachea midline, no stridor, no midline c spine tenderness , no paraspinal neck muscle tenderness Chest: no rib or chest wall tenderness Resp: normal respiratory effort, No retractions, No use of accessory muscles and clear to auscultation bilaterally Cardio: COMMON NORMALS: regular rate and regular rhythm RATE: regular rate RHYTHM: regular rhythm GI: Normal to inspection, no tenderness, nondistended, normoactive bowel sounds present Extremity: COMMON NORMALS: no pedal edema Neuro: GCS 15, AO x 4, normal speech, CN intact, normal motor exam, normal sensory exam, no ataxia Psych: cooperative, appropriate mood and affect Skin: + Faint erythematous blanchable hives to the base of the neck symmetric, no bulla no petechia Course Vital Signs: Vital signs: Vital Signs Temperature 97.8 F 03/28/24 09:39 Pulse Rate 91 03/28/24 09:39 Respiratory Rate 16 03/28/24 09:39 Blood Pressure 134/83 03/28/24 09:39 Pulse Oximetry 100 03/28/24 09:39 Oxygen Delivery Me thod Room Air 03/28/24 09:39 MDM - Skin/Abscess/Foreign Bdy Medicial Decision Making Patient is presenting with urticarial rash that is minor, discussed Benadryl Pepcid and discontinuation of amoxicillin. Outpatient follow-up with psychiatric np. Otherwise patient displays no signs of anaphylaxis, lungs are clear to auscultation normal vital signs she is stable for discharge and outpatient follow-up. No radiology studies performed this visit Discharge Plan Discharge Patient Disposition: Home Clinical Impression: Urticaria Condition: Stable Prescriptions: No Action ropinirole 0.5 mg tablet 0.5 - 1 mg PO BEDTIME acetaminophen 500 mg capsule 500 mg PO Q6H PRN (Reason: Pain) melatonin 10 mg capsule 10 mg PO DAILY metoprolol succinate 50 mg tablet extended release 24 hr 50 mg PO QAM amlodipine 5 mg tablet 5 mg PO QAM escitalopram oxalate 20 mg tablet 20 mg PO DAILY 30 Days Qty: 30 1RF trazodone 50 mg Tablet 50 mg PO BEDTIME PRN (Reason: Sleep) 30 Days Qty: 30 1RF pantoprazole 40 mg tablet,delayed release (DR/EC) 40 mg PO BID 30 Days Qty: 60 1RF buspirone 30 mg tablet 30 mg PO TID 30 Days Qty: 90 1RF levothyroxine 50 mcg capsule 50 mcg PO DAILY 30 Days Qty: 30 1RF methylprednisolone 4 mg tablets,dose pack See Rx Instructions PO .COMPLEX Qty: 21 0RF Rx Instructions: orally per package directions tizanidine 4 mg tablet 4 mg PO TID PRN (Reason: muscle spasticity) Qty: 21 0RF naproxen 500 mg tablet 500 mg PO BID PRN (Reason: pain) Qty: 20 0RF Discharge Orders: Discharge ED (Routine); Ordered 03/28/24 Ordered By: Yousuf Maharaj Referrals: Jose Fulton MD [Primary Care Provider] - Patient Instructions: Opioid Safety, Pain Management Coding Level of Care Code ED Patient Centered Care Specialist for Stephany Sanders
[2024-03-28 10:32] VITALS: BP 134/83; PULSE 86; O2SAT 95
== END 2024-03-28 10:35 | disposition home or self-care (01) ==
PROVIDERS: Emergency Provider Emergency Medicine; PCP Internal Medicine
DX: L50.9 Urticaria, unspecified (principal); Z87.891 Personal history of nicotine dependence
CPT/HCPCS: 99282

== ENCOUNTER 2024-05-15 19:42 | Emergency (ER) | payer SELFPAY ==
[2024-05-15 19:51] VITALS: BP 138/99; PULSE 86; RESP 18; TEMP 37; O2SAT 100; BMI 33.6
--- NOTE | 2024-05-15 19:54 | ECG_ITS ---
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
--- NOTE | 2024-05-15 19:56 | XRR_ITS ---
PROCEDURE INFORMATION: Exam: XR Chest Exam date and time: 05/15/2024 10:10 PM Age: 44 years old Clinical indication: Cough and dyspnea; Additional info: Chest pain cough congestion TECHNIQUE: Imaging protocol: Radiologic exam of the chest. Views: 1 view. COMPARISON: CR XR chest 1V portable [id number] 12/02/2023 2:25 AM FINDINGS: Lungs: Unremarkable. No consolidation. Pleural spaces: Unremarkable. No pleural effusion. No pneumothorax. Heart/Mediastinum: Unremarkable. No cardiomegaly. Bones/joints: Unremarkable. XR/XR chest 1V portable [id number] IMPRESSION: Normal
--- NOTE | 2024-05-15 19:56 | W.ED.CHESTPA ---
HPI - Chest Pain General: Chief Complaint: Chest Pain Stated Complaint: cp sharp stab in to breast L arm and throat Related Data Home Medications ?Medication ?Instructions ?Recorded ?Confirmed acetaminophen 500 mg capsule 500 mg PO Q6H PRN Pain 06/14/22 03/29/23 melatonin 10 mg capsule 10 mg PO DAILY 06/14/22 03/29/23 ropinirole 0.5 mg tablet 0.5 - 1 mg PO BEDTIME 06/14/22 03/29/23 amlodipine 5 mg tablet 5 mg PO QAM 01/13/23 03/29/23 metoprolol succinate 50 mg 50 mg PO QAM 01/13/23 03/29/23 tablet,extended release 24 hr Previous Rx's ?Medication ?Instructions ?Recorded buspirone 30 mg tablet 30 mg PO TID 30 days #90 tabs 01/18/23 escitalopram oxalate 20 mg tablet 20 mg PO DAILY 30 days #30 tabs 01/18/23 levothyroxine 50 mcg capsule 50 mcg PO DAILY 30 days #30 caps 01/18/23 pantoprazole 40 mg tablet,delayed 40 mg PO BID 30 days #60 tabs 01/18/23 release trazodone 50 mg tablet 50 mg PO BEDTIME PRN Sleep 30 days 01/18/23 #30 tabs naproxen 500 mg tablet 500 mg PO BID PRN pain #20 tabs 05/16/23 tizanidine 4 mg tablet 4 mg PO TID PRN muscle spasticity 05/16/23 #21 tabs methylprednisolone 4 mg tablets in See Rx Instructions PO .COMPLEX 12/02/23 a dose pack #21 ea Allergies Allergy/AdvReac Type Severity Reaction Status Date / Time amoxicillin Allergy rash Verified 03/28/24 10:10 [facility] ED PFSH: Medical History Mitral valve prolapse Hx of renal calculi Acid reflux Hiatal hernia Surgical History Hx of breast biopsy Hx of tonsillectomy History of carpal tunnel release of both wrists History of esophagogastroduodenoscopy (EGD) Family History Father Cancer bladder, prostate Hypertension Diabetes Sister Cancer breast Mother Stroke Social History Smoking and tobacco/nicotine status: former use of tobacco/nicotine Alcohol intake: current Alcohol intake frequency: holidays/special occasions only Substance/Drug Use: never Adopted: No Caregiver/support person: No Lives independently: No Household members: significant other and family Housing: House Marital status: Single Number of children: 1 service: No Current occupational status: unemployed Current gender identity: Female Course Vital Signs: Vital signs: Vital Signs Temperature 98.6 F 05/15/24 19:51 Pulse Rate 86 05/15/24 19:51 Respiratory Rate 18 05/15/24 19:51 Blood Pressure 138/99 05/15/24 19:51 Pulse Oximetry 100 05/15/24 19:51 Oxygen Delivery Me thod Room Air 05/15/24 19:51 Discharge Plan Discharge Condition: Stable Prescriptions: No Action ropinirole 0.5 mg tablet 0.5 - 1 mg PO BEDTIME acetaminophen 500 mg capsule 500 mg PO Q6H PRN (Reason: Pain) melatonin 10 mg capsule 10 mg PO DAILY metoprolol succinate 50 mg tablet extended release 24 hr 50 mg PO QAM amlodipine 5 mg tablet 5 mg PO QAM escitalopram oxalate 20 mg tablet 20 mg PO DAILY 30 Days Qty: 30 1RF trazodone 50 mg Tablet 50 mg PO BEDTIME PRN (Reason: Sleep) 30 Days Qty: 30 1RF pantoprazole 40 mg tablet,delayed release (DR/EC) 40 mg PO BID 30 Days Qty: 60 1RF buspirone 30 mg tablet 30 mg PO TID 30 Days Qty: 90 1RF levothyroxine 50 mcg capsule 50 mcg PO DAILY 30 Days Qty: 30 1RF methylprednisolone 4 mg tablets,dose pack See Rx Instructions PO .COMPLEX Qty: 21 0RF Rx Instructions: orally per package directions tizanidine 4 mg tablet 4 mg PO TID PRN (Reason: muscle spasticity) Qty: 21 0RF naproxen 500 mg tablet 500 mg PO BID PRN (Reason: pain) Qty: 20 0RF Referrals: Jose Fulton MD [Primary Care Provider] - Print Language: Yakut Coding Level of Care Code ED Marketing Campaign Analyst for [facility] Marilyn
[2024-05-15 22:41] VITALS: BP 157/96; RESP 16; O2SAT 100
[2024-05-15 22:51] LABS: Basophils % 0.6 %; Eosinophils # 0.1 10^3/uL (0.0-0.8); Eosinophils % 1.7 %; Hematocrit 38.6 % (36-47); Lymphocytes # 1.7 10^3/uL (0.8-4.8); Lymphocytes % 32.5 %; Mean Corpuscular HGB Conc 30.8 g/dL (30-55); Mean Corpuscular Volume 84.3 fl (85-98); Mean Platelet Volume 10.4 fL (7.4-10.4); Monocytes # 0.4 10^3/uL (0.2-0.9); Monocytes % 7.8 %; Neutrophils # 3.02 10^3/uL (1.8-7.7); Nucleated Red Blood Cells % 0 %; Platelet Count 209 10^3/cmm (157-399); Red Blood Count 4.58 10^6/uL (3.85-5.65); Red Cell Distribution Width 13.2 % (12.1-15.1); White Blood Count 5.29 10^3/uL (3.29-11.43)
[2024-05-15 23:02] LABS: Troponin(5th) Baseline < 6 ng/L (0-10)
[2024-05-15 23:03] LABS: Alanine Aminotransferase 12 U/L (0-33); Albumin Level 4.1 g/dL (3.5-5.2); Alkaline Phosphatase 72 U/L (35-105); Anion Gap 14.8 (5-19); Aspartate Amino Transferase 17 U/L (0-32); Blood Urea Nitrogen 13 mg/dL (6-20); Calcium 9.1 mg/dL (8.5-10.5); Carbon Dioxide 25 mmol/L (22-29); Chloride 104 mmol/L (98-107); Creatinine Clr Calc Pharmacy 91.4317; Globulin 2.9 g/dL (1.3-4.6); Glomerular Filtration Rate 77.2 mL/min (90-130); Glucose 101 mg/dL (65-115); Osmolality Calculated 290 mOsm/kg (285-295); Potassium 3.8 mmol/L (3.5-5.1); Sodium 140 mmol/L (136-145); Total Bilirubin 0.2 mg/dL (0.15-1.2)
--- NOTE | 2024-05-15 23:04 | W.ED.CHESTPA ---
HPI - Chest Pain General: Chief Complaint: Chest Pain Stated Complaint: cp sharp stab in to breast L arm and throat Time Seen by Provider: 05/15/24 22:49 History of Present Illness: 44-year-old female who presents emergency room with left-sided chest pain. It has been an ache with occasional sharp pains. 1 happened at work at her coworkers noticed and they sent her to the emergency room. She has been having nasal congestion and cough for a couple of weeks now. She been placed on antibiotics and steroids and had completed those. She still having some cough. Still some congestion. Mildly short of breath. She also has been having some constipation she says. Related Data Home Medications ?Medication ?Instructions ?Recorded ?Confirmed acetaminophen 500 mg capsule 500 mg PO Q6H PRN Pain 06/14/22 03/29/23 melatonin 10 mg capsule 10 mg PO DAILY 06/14/22 03/29/23 ropinirole 0.5 mg tablet 0.5 - 1 mg PO BEDTIME 06/14/22 03/29/23 amlodipine 5 mg tablet 5 mg PO QAM 01/13/23 03/29/23 metoprolol succinate 50 mg 50 mg PO QAM 01/13/23 03/29/23 tablet,extended release 24 hr Previous Rx's ?Medication ?Instructions ?Recorded buspirone 30 mg tablet 30 mg PO TID 30 days #90 tabs 01/18/23 escitalopram oxalate 20 mg tablet 20 mg PO DAILY 30 days #30 tabs 01/18/23 levothyroxine 50 mcg capsule 50 mcg PO DAILY 30 days #30 caps 01/18/23 pantoprazole 40 mg tablet,delayed 40 mg PO BID 30 days #60 tabs 01/18/23 release trazodone 50 mg tablet 50 mg PO BEDTIME PRN Sleep 30 days 01/18/23 #30 tabs naproxen 500 mg tablet 500 mg PO BID PRN pain #20 tabs 05/16/23 tizanidine 4 mg tablet 4 mg PO TID PRN muscle spasticity 05/16/23 #21 tabs methylprednisolone 4 mg tablets in See Rx Instructions PO .COMPLEX 12/02/23 a dose pack #21 ea Allergies Allergy/AdvReac Type Severity Reaction Status Date / Time amoxicillin Allergy rash Verified 03/28/24 10:10 Review of Systems Narrative: Constitutional symptoms: Negative except as documented in HPI. Skin symptoms: Negative except as documented in HPI. Eye symptoms: Negative except as documented in HPI. ENMT symptoms: Negative except as documented in HPI. Respiratory symptoms: Negative except as documented in HPI. Cardiovascular symptoms: Negative except as documented in HPI. Gastrointestinal symptoms: Negative except as documented in HPI. Genitourinary symptoms: Negative except as documented in HPI. Musculoskeletal symptoms: Negative except as documented in HPI. Neurologic symptoms: Negative except as documented in HPI. Psychiatric symptoms: Negative except as documented in HPI. Endocrine symptoms: Negative except as documented in HPI. PFSH ED PFSH: Medical History Mitral valve prolapse Hx of renal calculi Acid reflux Hiatal hernia Surgical History Hx of breast biopsy Hx of tonsillectomy History of carpal tunnel release of both wrists History of esophagogastroduodenoscopy (EGD) Family History Father Cancer bladder, prostate Hypertension Diabetes Sister Cancer breast Mother Stroke Social History Smoking and tobacco/nicotine status: former use of tobacco/nicotine Alcohol intake: current Alcohol intake frequency: holidays/special occasions only Substance/Drug Use: never Adopted: No Caregiver/support person: No Lives independently: No Household members: significant other and family Housing: House Marital status: Single Number of children: 1 service: No Current occupational status: unemployed Current gender identity: Female Physical Exam Narrative: EXAM NARRATIVE: General: Alert, no acute distress. Skin: Warm, dry. Head: Normocephalic, atraumatic. Neck: Supple, trachea midline. Eye: Extraocular movements are intact. Ears, nose, mouth and throat: mucosa moist. Cardiovascular: Regular, Normal peripheral perfusion. Respiratory: Lungs are clear to auscultation, respirations are non-labored, breath sounds are equal, Symmetrical chest wall expansion. Gastrointestinal: Soft, Nontender, Non distended Musculoskeletal: Normal ROM, no deformity. Neurological: Alert and oriented, No focal neurological deficit observed. Psychiatric: Cooperative, appropriate mood & affect. Course Vital Signs: Vital signs: Vital Signs Temperature 98.6 F 05/15/24 19:51 Pulse Rate 73 05/15/24 23:33 Respiratory Rate 18 05/15/24 23:33 Blood Pressure 145/90 05/15/24 23:33 Pulse Oximetry 100 05/15/24 23:33 Oxygen Delivery Me thod Room Air 05/15/24 23:33 MDM - Chest Pain Medical Decision Making Differential diagnosis for patient with chest pain includes but is not limited to and based on the above HPI, review of systems and physical exam: Pneumonia. unstable angina. angina. Acute coronary syndrome / MT. Pulmonary embolism. Costochondritis / musculoskeletal. Pleurisy. Pericarditis. Esophageal spasm. Pancreatis. Cholecystitis. Orders placed to evaluate differential diagnosis based on the above differential, HPI and physical exam EKG: Time 1948. Rate 85. Normal sinus rhythm, No ST-T changes, no ectopy, normal CO & QRS intervals, This was reviewed and interpreted by myself the ER physician at 1954. Chest x-ray: No acute process. No infiltrate. No pneumothorax. This was reviewed and interpreted by myself the emergency room physician. I also reviewed the radiology report. Lab Review: Laboratory results were reviewed and interpreted by myself the emergency room physician. No leukocytosis. No anemia. No renal failure. Troponin is negative. I reviewed the patient's medical record. Reexamination: Patient remained stable. No increased work of breathing. No altered mental status. No focal motor deficits. Assessment and plan: Noncardiac chest pain - Discharged home - Discussed plan with patient. Answered any questions. - Evaluation and treatment of this problem were appropriate in the emergency setting. Lab Data 05/15/24 22:38 05/15/24 22:38 Radiology Impressions Chest X-Ray 05/15/24 19:56 IMPRESSION: Normal Laboratory Results WBC 5.29 10^3/uL (3.29-11.43) 05/15/24 22:38 RBC 4.58 10^6/uL (3.85-5.65) 05/15/24 22:38 Hgb 11.90 g/dL (11.27-16.99) 05/15/24 22:38 Hct 38.6 % (36-47) 05/15/24 22:38 MCV 84.3 fl (85-98) L 05/15/24 22:38 MCH 26.0 pg (27-33) L 05/15/24 22:38 MCHC 30.8 g/dL (30-55) 05/15/24 22: RDW 13.2 % (12.1-15.1) 05/15/24 22: Plt Count 209 10^3/cmm (157-399) 05/15/24 22:38 MPV 10.4 fL (7.4-10.4) 05/15/24 22: Neut % (Auto) 57.0 % 05/15/24 22: Lymph % (Auto) 32.5 % 05/15/24 22:38 Upson % (Auto) 7.8 % 05/15/24: Eos % (Auto) 1.7 % 05/15/24: Baso % (Auto) 0.6 % 05/15/24: Neut # (Auto) 3.02 10^3/uL (1.8-7.7) 05/15/24: Lymph # (Auto) 1.7 10^3/uL (0.8-4.8) 05/15/24 22: Upson # (Auto) 0.4 10^3/uL (0.2-0.9) 05/15/24: Eos # (Auto) 0.1 10^3/uL (0.0-0.8) 05/15/24: Baso # (Auto) 0.0 10^3/uL (0.0-0.1) 05/15/24: Nucleated RBC % (auto) 0 % 05/15/24: Nucleated RBCs # 0.0 /100WBC 05/15/24 22:38 Sodium 140 mmol/L (136-145) 05/15/24 22: Potassium 3.8 mmol/L (3.5-5.1) 05/15/24 22: Chloride 104 mmol/L (98-107) 05/15/24: Carbon Dioxide 25 mmol/L (22-29) 05/15/24 22: Anion Gap 14.8 (5-19) 05/15/24 22:38 BUN 13 mg/dL (6-20) 05/15/24: Creatinine 0.8 mg/dL (0.5-0.9) 05/15/24 22:38 GFR Calculation 77.2 mL/min (90-130) L 05/15/24 22:38 Glucose 101 mg/dL (65-115) 05/15/24 22:38 Calculated Osmolality 290 mOsm/kg (285-295) 05/15/24 22:38 Calcium 9.1 mg/dL (8.5-10.5) 05/15/24 22:38 Total Bilirubin 0.2 mg/dL (0.15-1.2) 05/15/24 22:38 AST 17 U/L (0-32) 05/15/24 22:38 ALT 12 U/L (0-33) 05/15/24 22:38 Alkaline Phosphatase 72 U/L (35-105) 05/15/24 22:38 Troponin T Baseline < 6 ng/L (0-10) 05/15/24 22:38 Total Protein 7.0 g/dL (6.6-8.7) 05/15/24 22:38 Albumin 4.1 g/dL (3.5-5.2) 05/15/24 22:38 Globulin 2.9 g/dL (1.3-4.6) 05/15/24 22:38 Coronavirus (PCR) Negative (Negative) 05/15/24 22:35 Influenza A (PCR) Negative (Negative) 05/15/24 22:35 Influenza Type B (PCR) Negative (Negative) 05/15/24 22:35 RSV (PCR) Negative (Negative) 05/15/24 22:35 All radiology interpretation(s) finalized by discharge Discharge Plan Discharge Patient Disposition: Home Clinical Impression: Non-cardiac chest pain Condition: Stable Prescriptions: No Action ropinirole 0.5 mg tablet 0.5 - 1 mg PO BEDTIME acetaminophen 500 mg capsule 500 mg PO Q6H PRN (Reason: Pain) melatonin 10 mg capsule 10 mg PO DAILY metoprolol succinate 50 mg tablet extended release 24 hr 50 mg PO QAM amlodipine 5 mg tablet 5 mg PO QAM escitalopram oxalate 20 mg tablet 20 mg PO DAILY 30 Days Qty: 30 1RF trazodone 50 mg Tablet 50 mg PO BEDTIME PRN (Reason: Sleep) 30 Days Qty: 30 1RF pantoprazole 40 mg tablet,delayed release (DR/EC) 40 mg PO BID 30 Days Qty: 60 1RF buspirone 30 mg tablet 30 mg PO TID 30 Days Qty: 90 1RF levothyroxine 50 mcg capsule 50 mcg PO DAILY 30 Days Qty: 30 1RF methylprednisolone 4 mg tablets,dose pack See Rx Instructions PO .COMPLEX Qty: 21 0RF Rx Instructions: orally per package directions tizanidine 4 mg tablet 4 mg PO TID PRN (Reason: muscle spasticity) Qty: 21 0RF naproxen 500 mg tablet 500 mg PO BID PRN (Reason: pain) Qty: 20 0RF Discharge Orders: Discharge ED (Routine); Ordered 05/15/24 Ordered By: Mellissa Rogers Referrals: Jose Fulton MD [Primary Care Provider] - Discharge Diet: Usual diet Discharge Activity: Increase activity as tolerated Patient Instructions: Noncardiac Chest Pain (ED), Opioid Safety, Pain Management Activity Restrictions/Additional Instructions: Thank you for choosing [facility] for your healthcare needs today. Please realize this is an emergency room and that we are providing you with a medical screening exam and this may not be complete and all inclusive of all the testing and or work up that you may need to determine your ailment or severity of your illness. You have been screened and evaluated and felt safe for discharge. Health conditions do change or evolve sometimes and as such it is important that you follow up with your Primary Doctor to be re checked, 3-5 days is a general good time frame for follow up. You are always welcome to return to the ED for re assessment if your symptoms are worsening or you have new concerns Print Language: Dutch Coding Level of Care Code ED Solar Installation Technician for Steph[facility] Sanders
[2024-05-15 23:13] VITALS: BP 175/105; PULSE 77; RESP 16; O2SAT 94
[2024-05-15 23:28] LABS: Influenza A NEGATIVE (Negative); Influenza B NEGATIVE (Negative); Respiratory Syncytial Virus Ce NEGATIVE (Negative); SARS-CoV-2 PCR NEGATIVE (Negative)
[2024-05-15 23:33] VITALS: BP 145/90; PULSE 73; RESP 18; O2SAT 100
[2024-05-15 23:57] VITALS: BP 143/91; PULSE 75; RESP 16; O2SAT 97
== END 2024-05-16 00:06 | disposition home or self-care (01) ==
PROVIDERS: Emergency Provider Emergency Medicine; PCP Internal Medicine
DX: R07.89 Other chest pain (principal); Z11.52 Encounter for screening for COVID-19; Z87.891 Personal history of nicotine dependence
CPT/HCPCS: 36415; 71045; 80053; 84484; 85025; 87637; 93005; 99285

== ENCOUNTER 2024-07-06 15:35 | Emergency (ER) | payer BC, SELFPAY ==
[2024-07-06 15:41] VITALS: BP 155/103; PULSE 96; RESP 14; TEMP 36.6; O2SAT 100
[2024-07-06 16:03] LABS: Add Urine Microscopic? NO; Bilirubin Urine Neg (Negative); Blood Urine Neg (Negative); Glucose Urine UA Norm (Normal); HCG Qualitative Urine. Negative (Negative); Ketones Urine Negative (Negative); Leukocyte Esterase Urine Negative (Negative); Nitrate Urine Negative (Negative); Protein Urine Neg (Negative); Urine Appearance Clear (CLEAR); Urine Color Yellow (Yellow); Urobilinogen Urine 1 mg/dL (Negative); pH Urine 5 (5-7)
[2024-07-06 16:05] LABS: Charge for UA Resulting for Rev
[2024-07-06 16:07] LABS: Bacteria Urine None Seen /hpf; Hyaline Casts Urine 1.65 /lpf; RBC Urine 0-2 /hpf (0-2); Squamous Epithelial Cell Urine 0-5 /hpf (0-5); WBC Urine 0-5 /hpf (0-5)
--- NOTE | 2024-07-06 16:08 | CTR_ITS ---
PROCEDURE INFORMATION: Exam: CT Abdomen And Pelvis Without Contrast Exam date and time: 07/06/2024 4:19 PM Age: 44 years old Clinical indication: Abdominal pain; Flank; Other: Bilateral; Additional info: Flank pain TECHNIQUE: Imaging protocol: Computed tomography of the abdomen and pelvis without contrast. Radiation optimization: All CT scans at this facility use at least one of these dose optimization techniques: automated exposure control; mA and/or kV adjustment per patient size (includes targeted exams where dose is matched to clinical indication); or iterative reconstruction. COMPARISON: CT kidney stone [id number] 09/16/2017 2:52 PM RADIATION DOSE METRICS: Total DLP (mGy-cm): 611.03 FINDINGS: Lungs: Unremarkable. Liver: Normal. No mass. Gallbladder and biliary ducts: Normal. No calcified stones. No ductal dilation. Pancreas: Normal. No ductal dilation. Spleen: Normal. No splenomegaly. Adrenal glands: Normal. No mass. Kidneys and ureters: Redemonstrated bilateral nonobstructing punctate calculi. No hydronephrosis or obstructing calculi. Stomach and bowel: Mild colonic diverticulosis. Appendix: No evidence of appendicitis. Intraperitoneal space: Trace amount of free pelvic fluid. Vasculature: Moderate atherosclerosis of included aorta. Lymph nodes: Unremarkable. No enlarged lymph nodes. Urinary bladder: Unremark underdistended, limiting the evaluation. Reproductive: Bilateral ovarian cysts, measuring up to 11 mm on the left and 2.4 mm on the right. Bones/joints: Unremarkable. No acute fracture. Soft tissues: Tiny fat containing umbilical hernia. CT/CT kidney stone [id number] IMPRESSION: 1. Bilateral nonobstructing nephrolithiasis. No hydronephrosis or obstructing calculi bilaterally. 2. Bilateral ovarian cysts measuring up to 11 mm on the left and 2.4 mm on the right. 3. Trace amount of free pelvic fluid, nonspecific finding and may be physiologic. 4. Mild colonic diverticulosis.
--- NOTE | 2024-07-06 16:14 | W.ED.FEMALGU ---
HPI - Female Genitourinary General: Chief complaint: Urogenital-Female Stated complaint: pain/bleeding with urination Time Seen by Provider: 07/06/24 15:52 History of Present Illness: This patient is a 44-year-old female presenting with vaginal and flank pain. She said she went to the bathroom earlier today and noted blood in the urine. She also describes severe dysuria. She returned to her work and then a few hours later had to go again with the same symptoms. She said for the last several days she has been having pain up into both flanks. This is the first time she has had dysuria or hematuria. A few weeks ago she saw her PCP for some stomach pain and had an x-ray done. She was noted to have stones in both kidneys. She has never passed a kidney stone before. Her doctor told her that she probably would and she believes this is what is happening. She is also had some nausea today. She denies fevers although she does describe being cold today. Related Data Home Medications ?Medication ?Instructions ?Recorded ?Confirmed acetaminophen 500 mg capsule 500 mg PO Q6H PRN Pain 06/14/22 07/06/24 ropinirole 0.5 mg tablet 0.5 - 1 mg PO BEDTIME 06/14/22 07/06/24 omeprazole 20 mg capsule,delayed 20 mg PO DAILY 07/06/24 07/06/24 release zolpidem 10 mg tablet 10 mg PO BEDTIME 07/06/24 07/06/24 Previous Rx's ?Medication ?Instructions ?Recorded buspirone 30 mg tablet 30 mg PO TID 30 days #90 tabs 01/18/23 Allergies Allergy/AdvReac Type Severity Reaction Status Date / Time amoxicillin Allergy rash Verified 07/06/24 15:45 [facility] ED PFSH: Medical History Mitral valve prolapse Hx of renal calculi Acid reflux Hiatal hernia Surgical History Hx of breast biopsy Hx of tonsillectomy History of carpal tunnel release of both wrists History of esophagogastroduodenoscopy (EGD) Family History Father Cancer bladder, prostate Hypertension Diabetes Sister Cancer breast Mother Stroke Social History Smoking and tobacco/nicotine status: former use of tobacco/nicotine Alcohol intake: current Alcohol intake frequency: holidays/special occasions only Substance/Drug Use: never Adopted: No Caregiver/support person: No Lives independently: No Household members: significant other and family Housing: House Marital status: Single Number of children: 1 service: No Current occupational status: unemployed Current gender identity: Female Physical Exam Const: COMMON NORMALS: patient oriented x3, no limitations and alert GENERAL APPEARANCE: cooperative HENMT: HEAD & SCALP: normal to inspection FACE & SINUS: normal facial exam Eye: GENERAL EYE: appearance normal, both eyes and all related structures Neck/C-Spine: COMMON NORMALS: supple, no meningeal signs and no JVD Chest: COMMONS NORMALS: normal inspection of the chest Resp: COMMON NORMALS: normal respiratory effort, No use of accessory muscles and clear to auscultation bilaterally AUSCULTATION: clear to auscultation bilaterally Cardio: COMMON NORMALS: no JVD, regular rate, regular rhythm and No murmurs present (Cardio) RATE: regular rate RHYTHM: regular rhythm GI: COMMON NORMALS: Normal to inspection, nondistended, normoactive bowel sounds present, Soft to palpation and non-tender INSPECTION: Yes normal to inspection AUSCULTATION: Yes normoactive bowel sounds PALPATION: Yes Soft to palpation : COMMON NORMALS: Yes normal external appearance, Yes normal appearance of the vagina, Yes normal appearance of the cervix and Yes normal bimanual exam BIMANUAL EXAM - VAGINA & UTERUS: Yes normal bimanual exam OTHER: Patient is holding an ice pack over her vaginal area and states that helps with the discomfort. She describes the pain being directly in the urethra. Back/Pelvis: COMMON NORMALS: thoracic and lumbar spine normal to inspection Extremity: COMMON NORMALS: normal to inspection Neuro: COMMON NORMALS: patient oriented x3, moves all extremities, no focal motor deficits and no sensory deficits noted SENSORIUM/ORIENTATION: Yes alert MENINGEAL SIGNS: Yes no meningeal signs Psych: COMMON NORMALS: mental status grossly normal, cooperative and normal affect Skin: COMMON NORMALS: no rashes or lesions noted and turgor normal GENERAL SKIN EXAM: no rashes or lesions noted and turgor normal Course Vital Signs: Vital signs: Vital Signs Temperature 97.8 F 07/06/24 15:41 Pulse Rate 96 07/06/24 15:41 Respiratory Rate 14 07/06/24 15:41 Blood Pressure 155/103 07/06/24 15:41 Pulse Oximetry 100 07/06/24 15:41 Oxygen Delivery Me thod Room Air 07/06/24 15:41 MDM - Female Medical Decision Making Patient has kidney stones but has never passed one. Her pain today does not seem typical at all for kidney stones however I will get a CT to evaluate if that is possibly the cause. I have certainly seen patients with atypical presentations. I also think we should probably do a pelvic exam. Urinalysis has already been obtained. I have ordered some Pyridium to see if that helps with her pain. If it does not we can use some NSAIDs or stronger pain medicines. The CT was negative as far as any obstructing calculi. She does have bilateral nonobstructing kidney stones. There are also some small bilateral ovarian cysts and a trace amount of free fluid in the pelvis. Lab Data Radiology Impressions Abdomen/Pelvis CT 07/06/24 16:08 IMPRESSION: 1. Bilateral nonobstructing nephrolithiasis. No hydronephrosis or obstructing calculi bilaterally. 2. Bilateral ovarian cysts measuring up to 11 mm on the left and 2.4 mm on the right. 3. Trace amount of free pelvic fluid, nonspecific finding and may be physiologic. 4. Mild colonic diverticulosis. Laboratory Results HCG, Qual Negative (Negative) 07/06/24 15:47 Urine Color Yellow (Yellow) 07/06/24 15:47 Urine Appearance Clear (CLEAR) 07/06/24 15:47 Urine pH 5 (5-7) 07/06/24 15:47 Ur Specific Howard 1.030 (1.005-1.030) 07/06/24 15:47 Urine Protein Neg (Negative) 07/06/24 15:47 Urine Glucose (UA) Norm (Normal) 07/06/24 15:47 Urine Ketones Negative (Negative) 07/06/24 15:47 Urine Blood Neg (Negative) 07/06/24 15:47 Urine Nitrate Negative (Negative) 07/06/24 15:47 Urine Bilirubin Neg (Negative) 07/06/24 15:47 Urine Urobilinogen 1 mg/dL (Negative) H 07/06/24 15:47 Ur Leukocyte Esterase Negative (Negative) 07/06/24 15:47 Urine RBC 0-2 /hpf (0-2) 07/06/24 15:47 Urine WBC 0-5 /hpf (0-5) 07/06/24 15:47 Ur Squamous Epith Cells 0-5 /hpf (0-5) 07/06/24 15:47 Amorphous Sediment Not Reportable 07/06/24 15:47 Urine Bacteria None seen /hpf (NONE) 07/06/24 15:47 Hyaline Casts 1.65 /lpf 07/06/24 15:47 All radiology interpretation(s) finalized by discharge Discharge Plan Discharge Patient Disposition: Home Clinical Impression: Ovarian cyst, Dysmenorrhea, Dysuria Condition: Stable Prescriptions: No Action ropinirole 0.5 mg tablet 0.5 - 1 mg PO BEDTIME acetaminophen 500 mg capsule 500 mg PO Q6H PRN (Reason: Pain) buspirone 30 mg tablet 30 mg PO TID 30 Days Qty: 90 1RF zolpidem 10 mg tablet 10 mg PO BEDTIME omeprazole 20 mg capsule,delayed release(DR/EC) 20 mg PO DAILY Discharge Orders: Discharge ED (Routine); Ordered 07/06/24 Ordered By: Carola Watkins Referrals: Jose Fulton MD [Primary Care Provider] - Patient Instructions: Abdominal Pain (ED), Opioid Safety, Pain Management Activity Restrictions/Additional Instructions: Use EITHER ibuprofen three tablets (200 mg each for a total of 600 mg) every 6 hours OR naprosyn two tablets (220 mg each for a total of 440 mg) every 12 hours for the next few days. Return to the ED if increased pain, fever or other concerns. See your PCP if not improving within 3 or 4 days. Print Language: Occitan Coding Level of Care Code ED Blue Split Trimmer for Stephany Sanders
[2024-07-06] MEDS: phenazopyridine 100 mg Tablet 200 MG PO (16:27)
== END 2024-07-06 17:55 | disposition home or self-care (01) ==
PROVIDERS: Emergency Medicine; Emergency Provider Emergency Medicine; PCP Internal Medicine
DX: N83.202 Unspecified ovarian cyst, left side (principal); N83.201 Unspecified ovarian cyst, right side; N20.0 Calculus of kidney; N94.6 Dysmenorrhea, unspecified; R30.0 Dysuria; Z87.891 Personal history of nicotine dependence
CPT/HCPCS: 74176; 81003; 81025; 99284; J9999

== ENCOUNTER 2024-10-27 14:04 | Emergency (ER) | payer BC, SELFPAY ==
--- OUTSIDE RECORDS SUMMARY | 2024-10-27 14:08 | XMS_ITS | Patient Health Record ---
Author Organization [facility] Address [address] [place] [address] Care Team Providers Care Java Oracle Developer Name Role Phone Maddi Puckett Primary Care Provider MADDI PUCKETT Unavailable Unavailable Roberts, Criselda Unavailable [phone] Allergies No Known Allergies Results Component Value Reference Range Notes COVID-19 RAPID - [id number] Reviewed date:03/29/2024 11:38:12 AM Interpretation: Performing Lab: Notes/Report: COVID19 negative Reason For Referral No Information Medications Medication SIG (Take, Route, Frequency, Duration) Notes Start Date End Date Status Omeprazole 20 MG Capsule Delayed Release 1 capsule 30 minutes before morning meal Orally Once a day Active Flonase Allergy Relief 50 MCG/ACT Suspension 1 spray in each nostril Nasally Twice a day; Duration: 30 days 07/10/2024 Active busPIRone HCl 30 MG Tablet 1 tablet Oral ly Twice a day Active rOPINIRole HCl 1 MG Tablet 1 tablet 1 to 3 hours before bedtime Orally Once a day Active Ambien 10 MG Tablet 1 tablet at bedtime as needed Orally Once a day Active Social History Social History Tobacco Use: Social Info Question Answer Notes Tobacco use other than smoking: Are you an other tobac co user? FORMER SMOKER How often do you smoke? once a day Section Notes: 10/01/20 10/01/20 11/10/22 PHQ9 10/01/20 10/01/20 11/10/22 PHQ9 07/10/2024 PHQ9 10/01/20 11/10/22 PHQ9 10/01/20 11/10/22 PHQ9 10/01/20 11/10/22 PHQ9 10/01/20 11/10/22 PHQ9 07/10/2024 PHQ9 10/01/20 Problems Problem Type SNOMED Code ICD Code Onset Dates Problem Status W/U Status Risk Notes Problem Hypothyroidism (53139484) Hypothyroidism, unspecified type (E03.9) Active confirmed Problem Sinusitis (92081219) Sinusitis (J32.9) Active confirmed Problem Seasonal allergy (919573945) Seasonal allergies (J30.2) Active confirmed Problem Body mass index 40.0-44.9, adult (Z68.41) Active confirmed Problem Body mass index [BMI] 40.0-44.9, adult (Z68.41) Active confirmed Vital Signs Heart Rate 89 /min 07/23/2024 Temperature 97.1 degrees Fahrenheit 07/23/2024 Respiratory Rate 20 /min 07/23/2024 Height-cm 160.02 cm 07/23/2024 Oximetry 99 % 07/23/2024 Blood pressure diastolic 74 mm Hg 07/23/2024 Weight-kg 90.27 kg 07/23/2024 Height 63 in 07/23/2024 Blood pressure systolic 120 mm Hg 07/23/2024 Weight 199 lbs 07/23/2024 BMI 35.25 kg/m2 07/23/2024 Encounters Encounter Location Date Provider Diagnosis [facility] [address] [address] 07/23/2024 Maddi Puckett Acute contact dermatitis L25.9 [facility] [address] [address] 07/10/2024 Maddi Puckett Seasonal allergies J30.2 ; Nasal congestion R09.81 and Depression screen Z13.31 [facility] [address] [address] 03/29/2024 Criselda Roberts Vomiting R11.10 ; Diarrhea R19.7 ; Rash R21 and Gastroenteritis K52.9 Assessments Encounter Date Diagnosis (ICD Code) Assessment Notes Treatment Notes Treatment Clinical Notes Section Notes 03/29/2024 Vomiting (ICD-10 - R11.10) Nausea and Vomiting: Care Instructions material was printed zofran 03/29/2024 Diarrhea (ICD-10 - R19.7) Diarrhea: Care Instructions material was printed lomotil covid swab; negative 07/10/2024 Nasal congestion (ICD-10 - R09.81) 07/10/2024 Seasonal allergies (ICD-10 - J30.2) 07/23/2024 Acute contact dermatitis (ICD-10 - L25.9) Steroid injection given. RTC if no improvement with treatment. 03/29/2024 Rash (ICD-10 - R21) depomedr ol/decad michelle im 07/10/2024 Depression screen (ICD-10 - Z13.31) 03/29/2024 Gastroenteritis (ICD-10 - K52.9) Gastroenteritis: Care Instructions material was printed 03/29/2024 Other Questions asked and answered; discharged to home. Plan Of Treatment No Information Insurance Providers Payer Name Payer Address Payer Phone Subscriber Number Group Number Insured Name Patient Relationship to Insured Coverage Start Date Coverage End Date [employer] [place] [employer] [address] [place] [address] [id number] YULISSA WYNNE Self - patient is the insured 2024 Medications Administered Medication Instructions Date of Administration Dosage Notes DEPO-Medrol 03/29/2024 40 mg ndc 19914/[id number] 3-10 pt tolerated well/instructed to wait 20 min DEPO-Medrol 07/23/2024 40 mg [id number] 3-01 Patient tolerated well. dexAMETHasone 10/01/2020 8 mg dexAMETHasone 03/29/2024 4 mg ndc [id number] 423-00 pt tolerated well/instructed to wait 20 min dexAMETHasone 07/23/2024 4 mg [id number] 423-00 Patient tolerated well. Medical (General) History Medical History History ICD Code restless leg syndrome Surgical History Surgery Date(Month/Year) ankle surgery carpal tunnel release tonsillectomy
--- OUTSIDE RECORDS SUMMARY | 2024-10-27 14:09 | XMS_ITS | Patient Health Record ---
Author Organization [facility] Address [address] [place], [place] [id number] Care Team Providers Care Senior Cyber Intelligence Analyst Name Role Phone Non [facility] Provider, Provider Primary Care P bob Unavailable Rabia Quinn Unavailable [phone] [facility], [facility] Unavailable Allergies No Known Allergies Reason For Referral No Information Medications Medication SIG (Take, Route, Frequency, Duration) Notes Start Date End Date Status Cephalexin 500 MG 1 capsule Orally Fou r times a day for 5 day(s) 11/27/2020 Active Zolpidem Tartrate 10 MG 1 tablet at bedt magdaleno as needed Orally Once a day Active busPIRone HCl 30 MG 1 tablet Orally Twic e a day Active Methocarbamol 750 MG 1 tablet Orally lincoln ry 4 hrs for 30 day(s) Active rOPINIRole HCl 0.5 MG 1 tablet 1 to 3 ho urs before bedtime Orally Once a day for 30 day(s) Active Levothyroxine Sodium 25 MCG 1 tablet in the morning on an empty stomach Orally Once a day for 30 day(s) Active Omeprazole 20 MG as directed Orally BID Active traMADol HCl 50 MG 1 tablet Orally twic e a day as needed for 5 days 11/25/2020 Active Social History Tobacco Use: Social History Observation Description Date Details (start date - stop date) Former Smoker NA - NA Sex Assigned At : Social History Observation Description Sex Assigned At Female - Question Answer Notes Did you have a drink contain ing alcohol in the past year? Yes How often did you have a dri nk containing alcohol in the past year? Monthly or less (1 point) How often did you have six o r more drinks on one occasion in the past year? Never (0 points) Points 1 Interpretation Negative [facility] Drug Questionnaire Question Answer Notes Have you used drugs other th an those for medical reasons in the past 12 months? No Do you smoke for age 13 and up Question Answer Notes Are you a: former smoker How long has it been since you last smoked? 1-5 years Smokeless Tobacco Question Answer Notes Tobacco use other than smoking No Have you ever had an STD Question Answer Notes Have you ever had an STD No Plan Of Treatment No Information Insurance Providers Payer Name Payer Address Payer Phone Subscriber Number Group Number Insured Name Patient Relationship to Insured Coverage Start Date Coverage End Date [employer] [address] [place] [phone] [id number] Shabana Mancini Self - patient is the insured Medical (General) History Medical History History ICD Code acid reflux Hiatal hernia atrial septal defect mitral valve prolapse Hypothyroidism Surgical History Surgery Date(Month/Year) tonsillectomy breast biopsy ankle surgery, right polyp removal cyst removal carpal tunnel release x2 Hospitalization History Reason Date(Month/Year) childbirth
[2024-10-27 14:12] VITALS: BP 135/88; PULSE 94; RESP 16; TEMP 36.8; O2SAT 99
[2024-10-27 14:32] LABS: Hematocrit 34.3 % (36-47); Hemoglobin 9.90 g/dL (11.27-16.99); Mean Corpuscular HGB Conc 28.9 g/dL (30-55); Mean Corpuscular Hemoglobin 23.2 pg (27-33); Mean Corpuscular Volume 80.5 fl (85-98); Nucleated Red Blood Cells % 0 %; Platelet Count 234 10^3/cmm (157-399); Red Blood Count 4.26 10^6/uL (3.85-5.65); White Blood Count 5.42 10^3/uL (3.29-11.43)
[2024-10-27 14:49] LABS: Alanine Aminotransferase 11 U/L (0-33); Albumin Level 3.8 g/dL (3.5-5.2); Alkaline Phosphatase 74 U/L (35-105); Anion Gap 15.3 (5-19); Aspartate Amino Transferase 15 U/L (0-32); Blood Urea Nitrogen 12 mg/dL (6-20); Calcium 8.7 mg/dL (8.5-10.5); Carbon Dioxide 23 mmol/L (22-29); Chloride 104 mmol/L (98-107); Creatinine Clr Calc Pharmacy 92.6901; Globulin 2.7 g/dL (1.3-4.6); Glucose 92 mg/dL (65-115); HCG, Serum Qual Negative (Negative); Lipase 56 U/L (13-60); Osmolality Calculated 285 mOsm/kg (285-295); Potassium 4.3 mmol/L (3.5-5.1); Sodium 138 mmol/L (136-145); Total Protein 6.5 g/dL (6.6-8.7)
--- NOTE | 2024-10-27 16:02 | W.ED.GENADLT ---
HPI - General Adult General: Chief complaint: General Medical Stated complaint: weak, n/d, burning on urination, dizzy Time Seen by Provider: 10/27/24 15:59 Source: patient Mode of arrival: ambulatory Limitations: no limitations History of Present Illness: 44-year-old female states she believes she has a UTI states she has been having some burning urination for last 2 days states she has been having some feelings of overall weakness and malaise. She denies any vomiting or diarrhea denies any abdominal pain states she has been exposed to heat as well and feels dehydrated. Associated symptoms: Reports malaise; Deny chest pain, dyspnea, headache(s), nausea, rash or vomiting Related Data Home Medications ?Medication ?Instructions ?Recorded ?Confirmed acetaminophen 500 mg capsule 500 mg PO Q6H PRN Pain 06/14/22 07/06/24 ropinirole 0.5 mg tablet 0.5 - 1 mg PO BEDTIME 06/14/22 07/06/24 omeprazole 20 mg capsule,delayed 20 mg PO DAILY 07/06/24 07/06/24 release zolpidem 10 mg tablet 10 mg PO BEDTIME 07/06/24 07/06/24 Previous Rx's ?Medication ?Instructions ?Recorded buspirone 30 mg tablet 30 mg PO TID 30 days #90 tabs 01/18/23 Allergies Allergy/AdvReac Type Severity Reaction Status Date / Time amoxicillin Allergy rash Verified 07/06/24 15:45 Review of Systems Const: Reports: malaise; Denies: fever(s), chills, body aches or change in appetite ENMT: Denies: throat pain or dental pain Card: Denies: chest pain Resp: Denies: dyspnea GI: Denies: abdominal pain, nausea, vomiting or diarrhea : Reports: dysuria Musc: Denies: neck pain or back pain Skin/Breast: Denies: rash Neuro: Denies: headache(s) PFSH ED PFSH: Medical History Mitral valve prolapse Hx of renal calculi Acid reflux Hiatal hernia Surgical History Hx of breast biopsy Hx of tonsillectomy History of carpal tunnel release of both wrists History of esophagogastroduodenoscopy (EGD) Family History Father Cancer bladder, prostate Hypertension Diabetes Sister Cancer breast Mother Stroke Social History Smoking and tobacco/nicotine status: former use of tobacco/nicotine Alcohol intake: current Alcohol intake frequency: holidays/special occasions only Substance/Drug Use: never Adopted: No Caregiver/support person: No Lives independently: No Household members: significant other and family Housing: House Marital status: Single Number of children: 1 service: No Current occupational status: unemployed Current gender identity: Female Physical Exam Const: COMMON NORMALS: no acute distress, patient oriented x3 and healthy appearing HENMT: COMMON NORMALS: normocephalic and atraumatic HEAD & SCALP: normocephalic and atraumatic Eye: COMMON NORMALS: conjunctivae normal CONJUNCTIVA: Yes conjunctivae normal Neck/C-Spine: COMMON NORMALS: full ROM and supple Chest: COMMONS NORMALS: normal inspection of the chest Resp: COMMON NORMALS: normal respiratory effort, No retractions, No use of accessory muscles and clear to auscultation bilaterally AUSCULTATION: clear to auscultation bilaterally Cardio: COMMON NORMALS: regular rate, regular rhythm and No murmurs present (Cardio) RATE: regular rate RHYTHM: regular rhythm GI: COMMON NORMALS: Normal to inspection, nondistended, normoactive bowel sounds present, Soft to palpation, non-tender and no masses PALPATION: Yes Soft to palpation Extremity: COMMON NORMALS: normal to inspection and full ROM Neuro: COMMON NORMALS: patient oriented x3, moves all extremities and no focal motor deficits CRANIAL NERVES: Yes CN normal except as noted GAIT: Yes Normal gait present MOTOR EXAM: 5/5 motor strength present throughout Psych: COMMON NORMALS: mental status grossly normal, Normal thought process present and cooperative THOUGHT PROCESS: Normal thought process present Skin: COMMON NORMALS: no rashes or lesions noted and no wounds GENERAL SKIN EXAM: no rashes or lesions noted Course Vital Signs: Vital signs: Vital Signs Temperature 98.2 F 10/27/24 14:12 Pulse Rate 94 10/27/24 14:12 Respiratory Rate 16 10/27/24 14:12 Blood Pressure 135/88 10/27/24 14:12 Pulse Oximetry 99 10/27/24 14:12 Oxygen Delivery Me thod Room Air 10/27/24 14:12 MDM - General Adult Medical Decision Making Patient presents for generalized weakness she feels improved after IV fluids she has been well-appearing here she is ambulatory without any difficulties she stable for discharge follow-up PCP return if worsening. Medical Records I reviewed the patient's medical records. Lab Data I reviewed the patient's lab results. 10/27/24 14:26 10/27/24 14:26 Laboratory Results WBC 5.42 10^3/uL (3.29-11.43) 10/27/24 14: RBC 4.26 10^6/uL (3.85-5.65) 10/27/24 14: Hgb 9.90 g/dL (11.27-16.99) L 10/27/24 14: Hct 34.3 % (36-47) L 10/27/24 14: MCV 80.5 fl (85-98) L 10/27/24 14: MCH 23.2 pg (27-33) L 10/27/24 14: MCHC 28.9 g/dL (30-55) L 10/27/24 14: RDW 14.1 % (12.1-15.1) 10/27/24 14: Plt Count 234 10^3/cmm (157-399) 10/27/24 14: MPV 10.4 fL (7.4-10.4) 10/27/24 14: Neut % (Auto) 65.6 % 10/27/24 14: Lymph % (Auto) 22.5 % 10/27/24 14:26 Beaver % (Auto) 9.0 % 10/27/24 14: Eos % (Auto) 1.8 % 10/27/24 14: Baso % (Auto) 0.7 % 10/27/24 14: Neut # (Auto) 3.55 10^3/uL (1.8-7.7) 10/27/24 14: Lymph # (Auto) 1.2 10^3/uL (0.8-4.8) 10/27/24 14:26 Beaver # (Auto) 0.5 10^3/uL (0.2-0.9) 10/27/24 14:26 Eos # (Auto) 0.1 10^3/uL (0.0-0.8) 10/27/24 14:26 Baso # (Auto) 0.0 10^3/uL (0.0-0.1) 10/27/24 14:26 Nucleated RBC % (auto) 0 % 10/27/24 14: Nucleated RBCs # 0.0 /100WBC 10/27/24 14:26 Sodium 138 mmol/L (136-145) 10/27/24 14:26 Potassium 4.3 mmol/L (3.5-5.1) 10/27/24 14:26 Chloride 104 mmol/L (98-107) 10/27/24 14:26 Carbon Dioxide 23 mmol/L (22-29) 10/27/24 14:26 Anion Gap 15.3 (5-19) 10/27/24 14:26 BUN 12 mg/dL (6-20) 10/27/24 14:26 Creatinine 0.8 mg/dL (0.5-0.9) 10/27/24 14:26 GFR Calculation 77.2 mL/min (90-130) L 10/27/24 14:26 Glucose 92 mg/dL (65-115) 10/27/24 14:26 Calculated Osmolality 285 mOsm/kg (285-295) 10/27/24 14:26 Calcium 8.7 mg/dL (8.5-10.5) 10/27/24 14:26 Total Bilirubin 0.2 mg/dL (0.15-1.2) 10/27/24 14:26 AST 15 U/L (0-32) 10/27/24 14:26 ALT 11 U/L (0-33) 10/27/24 14:26 Alkaline Phosphatase 74 U/L (35-105) 10/27/24 14:26 Total Protein 6.5 g/dL (6.6-8.7) L 10/27/24 14:26 Albumin 3.8 g/dL (3.5-5.2) 10/27/24 14:26 Globulin 2.7 g/dL (1.3-4.6) 10/27/24 14:26 Lipase 56 U/L (13-60) 10/27/24 14:26 HCG, Qual Negative (Negative) 10/27/24 14:26 Urine Color Yellow (Yellow) 10/27/24 16:10 Urine Appearance Clear (CLEAR) 10/27/24 16:10 Urine pH 7.0 (5-7) 10/27/24 16:10 Ur Specific [place] 1.006 (1.005-1.030) 10/27/24 16:10 Urine Protein Negative (Negative) 10/27/24 16:10 Urine Glucose (UA) Negative (Normal) 10/27/24 16:10 Urine Ketones Negative (Negative) 10/27/24 16:10 Urine Blood Negative (Negative) 10/27/24 16:10 Urine Nitrate Negative (Negative) 10/27/24 16:10 Urine Bilirubin Negative (Negative) 10/27/24 16:10 Urine Urobilinogen 0.2 mg/dL (Negative) 10/27/24 16:10 Ur Leukocyte Esterase Negative (Negative) 10/27/24 16:10 Urine RBC 0-2 /hpf (0-2) 10/27/24 16:10 Urine WBC 0-5 /hpf (0-5) 10/27/24 16:10 Ur Squamous Epith Cells 0-5 /hpf (0-5) 10/27/24 16:10 Amorphous Sediment Not Reportable 10/27/24 16:10 Urine Bacteria None seen /hpf (NONE) 10/27/24 16:10 Hyaline Casts 0.40 /lpf 10/27/24 16:10 No radiology studies performed this visit Discharge Plan Discharge Patient Disposition: Home Clinical Impression: Generalized weakness Condition: Stable Prescriptions: No Action ropinirole 0.5 mg tablet 0.5 - 1 mg PO BEDTIME acetaminophen 500 mg capsule 500 mg PO Q6H PRN (Reason: Pain) buspirone 30 mg tablet 30 mg PO TID 30 Days Qty: 90 1RF zolpidem 10 mg tablet 10 mg PO BEDTIME omeprazole 20 mg capsule,delayed release(DR/EC) 20 mg PO DAILY Discharge Orders: Discharge ED (Routine); Ordered 10/27/24 Ordered By: Cuauhtemoc Wayne Referrals: Jose Fulton MD [Primary Care Provider, Internal Medicine] - 4-7 days Discharge Diet: Advance as tolerated Discharge Activity: Resume usual activity Patient Instructions: Weakness (ED) Stand Alone Forms: Work/School Release Print Language: Kuwaiti Coding Level of Care Code ED Machinery Repair Maintenance Supervisor for Stephany Sanders
[2024-10-27 16:30] LABS: Glucose Urine UA Negative (Normal); Nitrate Urine Negative (Negative); Specific Gravity, Urine 1.006 (1.005-1.030)
[2024-10-27 16:32] LABS: Add Urine Microscopic? YES
[2024-10-27 17:35] VITALS: BP 124/87; PULSE 83; RESP 16; O2SAT 100
== END 2024-10-27 17:38 | disposition home or self-care (01) ==
PROVIDERS: Emergency Provider Emergency Medicine; PCP Internal Medicine
DX: R53.1 Weakness (principal); Z87.891 Personal history of nicotine dependence
CPT/HCPCS: 36415; 80053; 81001; 83690; 84703; 85025; 99283; J7030

== ENCOUNTER 2025-02-08 12:45 | Emergency (ER) | payer SELFPAY ==
--- OUTSIDE RECORDS SUMMARY | 2025-02-08 12:50 | XMS_ITS | Patient Health Record ---
Author Organization [facility] Address [address] [place], [place] [id number] Care Team Providers Care Senior Business Broker Name Role Phone Non [facility], Provider Primary Care P bob Unavailable Rabia Quinn Unavailable [phone] [place], [facility] Unavailable [phone] Allergies No Known Allergies Reason For Referral No Information Medications Medication SIG (Take, Route, Frequency, Duration) Notes Start Date End Date Status Cephalexin 500 MG 1 capsule Orally Fou r times a day; Duration: 5 day(s) 11/27/2020 Active Zolpidem Tartrate 10 MG 1 tablet at bedt magdaleno as needed Orally Once a day Active busPIRone HCl 30 MG 1 tablet Orally Twic e a day Active Methocarbamol 750 MG 1 tablet Orally lincoln ry 4 hrs; Duration: 30 day(s) Active rOPINIRole HCl 0.5 MG 1 tablet 1 to 3 ho urs before bedtime Orally Once a day; Duration: 30 day(s) Active Levothyroxine Sodium 25 MCG 1 tablet in the morning on an empty stomach Orally Once a day; Duration: 30 day(s) Active Omeprazole 20 MG as directed Orally BID Active traMADol HCl 50 MG 1 tablet Orally twic e a day as needed; Duration: 5 days 11/25/2020 Active Social History Tobacco [...] Insured Coverage Start Date Coverage End Date [employer] [address] [place] Pizarro [id number] Shabana Mancini Self - patient is the insured Medical (General) History Medical History History ICD Code acid reflux Hiatal hernia atrial septal defect mitral valve prolapse Hypothyroidism Surgical History Surgery Date(Month/Year) tonsillectomy breast biopsy ankle surgery, right polyp removal cyst removal carpal tunnel release x2 Hospitalization History Reason Date(Month/Year) childbirth
--- OUTSIDE RECORDS SUMMARY | 2025-02-08 12:50 | XMS_ITS | Patient Health Record ---
Author Organization [facility] Address [address] [facility] [address] Care Team Providers Care Roadway Designer Name Role Phone Maddi Puckett Primary Care Provider MADDI PUCKETT Unavailable Unavailable Roberts, Criselda Unavailable [phone] Allergies No Known Allergies Results Component Value Reference Range Notes COVID-19 RAPID - [id number] Reviewed date:03/29/2024 11:38:12 AM Interpretation: Performing Lab: Notes/Report: COVID19 negative Rapid Strep (Strep A) -[id number] Reviewed date:01/07/2025 03:44:39 PM Interpretation: Performing Lab: Notes/Report: Strep positive Influenza A/B - [id number] Reviewed date:01/07/2025 03:45:11 PM Interpretation: Performing Lab: Notes/Report: A negative B negative COVID-19 RAPID - [id number] Reviewed date:01/07/2025 03:44:54 PM Interpretation: Performing Lab: Notes/Report: COVID19 negative Reason For Referral No Information Medications Medication SIG (Take, Route, Frequency, Duration) Notes Start Date End Date Status ALPRAZolam 0.5 MG Tablet Oral; Duration: 15 Days Unknown Flonase Allergy Relief 50 MCG/ACT Suspension 1 spray in each nostril Nasally Twice a day; Duration: 30 days 07/10/2024 Active rOPINIRole HCl 1 MG Tablet 1 tablet 1 to 3 hours before bedtime Orally Once a day Active busPIRone HCl 30 MG Tablet 1 tablet Oral ly Twice a day Active Omeprazole 20 MG Capsule Delayed Release 1 capsule 30 minutes before morning meal Orally Once a day Active Ambien 10 MG Tablet 1 tablet at bedtime as needed Orally Once a day Active Loratadine 10 MG Tablet TAKE 1 TABLET BY MOUTH ONCE DAILY Oral; Duration: 30 Days Active Immunizations Vaccine Route Administration Date Status Comme nts Flucelvax Trivalent, Syringe 0.5 mL, PF Unknown 025 Refused Social History Tobacco Use: Social History Observation Description Date Details (start date - stop date) Unknown Social History Tobacco Use: Social Info Question Answer Notes Tobacco Control (Standard) Tobacco use: Uses tobacco i n other forms Additional Findings: Tobacco user e-cigarette Tobacco use other than smoking: Are you an other tobac co user? FORMER SMOKER How often do you smoke? once a day Section Notes: 10/01/20 10/01/20 11/10/22 PHQ9 07/10/2024 PHQ9 10/01/20 11/10/22 PHQ9 07/10/2024 PHQ9 10/01/20 11/10/22 PHQ9 07/10/2024 PHQ9 10/01/20 11/10/22 PHQ9 07/10/2024 PHQ9 10/01/20 11/10/22 PHQ9 10/01/20 11/10/22 PHQ9 07/10/2024 PHQ9 10/01/20 11/10/22 PHQ9 10/01/20 10/01/20 10/01/20 11/10/22 PHQ9 07/10/2024 PHQ9 10/01/20 11/10/22 PHQ9 10/01/20 11/10/22 PHQ9 Problems Problem Type SNOMED Code ICD Code Onset Dates Problem Status W/U Status Risk Notes Problem Hypothyroidism (73670384) Hypothyroidism, unspecified type (E03.9) Active confirmed Problem Sinusitis (97558675) Sinusitis (J32.9) Active confirmed Problem Seasonal allergy (488115390) Seasonal allergies (J30.2) Active confirmed Problem Body mass index 40+ - morbidly obese (010496598) Body mass index 40.0-44.9, adult (Z68.41) Active confirmed Problem Body mass index 40+ - severely obese (309622902) Body mass index [BMI] 40.0-44.9, adult (Z68.41) Active confirmed Vital Signs Heart Rate 86 /min 01/23/2025 Temperature 98.8 degrees Fahrenheit 01/23/2025 Respiratory Rate 20 /min 01/23/2025 Height-cm 160.02 cm 01/23/2025 Oximetry 99 % 01/23/2025 Blood pressure diastolic 64 mm Hg 01/23/2025 Weight-kg 91.17 kg 01/23/2025 Height 63 in 01/23/2025 Blood pressure systolic 114 mm Hg 01/23/2025 Weight 201 lbs 01/23/2025 BMI 35.6 kg/m2 01/23/2025 Encounters Encounter Location Date Provider Diagnosis [facility] [address] [place] [address] 07/23/2024 Maddi Lavern Acute contact dermatitis L25.9 [facility] [address] [place] [address] 01/14/2025 Maddi Lavern Acute otitis media, left H66.92 [facility] [address] [place] [address] 01/07/2025 Maddi Puckett Strep pharyngitis J0 2.0 ; Aching headache R51.9 ; Encounter for immunization Z23 and Immunization not carried out because of patient refusal Z28.21 [facility] [address] [place] [address] 12/05/2024 Criselda Roberts Sinusitis J32.9 and Bronchitis J40 [facility] [address] [place] [address] 07/10/2024 Maddi Lavern Seasonal allergies J30.2 ; Nasal congestion R09.81 and Depression screen Z13.31 [facility] [address] [place] [address] 03/29/2024 Criselda Roberts Vomiting R11.10 ; Diarrhea R19.7 ; Rash R21 and Gastroenteritis K52.9 [facility] [address] [place] [address] 01/23/2025 Maddi Lavern Aching headache R51. 9 Assessments Encounter Date Diagnosis (ICD Code) Assessment [...] given. RTC if no improvement with treatment. 12/05/2024 Bronchitis (ICD-10 - J40) z alicia 12/05/2024 Sinusitis (ICD-10 - J32.9) depomedrol/decad michelle im 01/07/2025 Strep pharyngitis (ICD-10 - J02.0) Increase fluids, take medication as directed. RTC if no improvement with treatment. Questions asked and answered; discharged to home. 01/07/2025 Aching headache (ICD-10 - R51.9) Toradol injection given today. 01/14/2025 Acute otitis media, left (ICD-10 - H66.92) Increase fluids, take medication as directed. RTC if no improvement with treatment. Questions asked and answered; discharged to home. 01/23/2025 Aching headache (ICD-10 - R51.9) Toradol injection given today. If no improvement with treatment RTC or follow up with PCP. Questions asked and answered; discharged to home. 03/29/2024 Rash (ICD-10 - R21) depomedr ol/decad michelle im 01/07/2025 Encounter for immunization (ICD-10 - Z23) 07/10/2024 Depression screen (ICD-10 - Z13.31) 03/29/2024 Gastroenteritis (ICD-10 - K52.9) Gastroenteritis: Care Instructions material was printed 01/07/2025 Immunization not carried out because of patient refusal (ICD-10 - Z28.21) 03/29/2024 Other Questions asked and answered; discharged to home. 12/05/2024 Other Questions asked and answered; discharged to home. Plan Of Treatment No Information Insurance Providers Payer Name Payer Address Payer Phone Subscriber Number Group Number Insured Name Patient Relationship to Insured Coverage Start Date Coverage End Date [employer] [place] [employer] [address] [place] [address] [id number] YULISSA WYNNE Self - patient is the insured 2024 Medications Administered Medication Instructions Date of Administration Dosage Notes DEPO-Medrol 03/29/2024 40 mg ndc 06172/157 3-10 pt tolerated well/instructed to wait 20 min DEPO-Medrol 07/23/2024 40 mg [id number] 3-01 Patient tolerated well. DEPO-Medrol 12/05/2024 [place] [address]-125 3-01 pt tolerated well/instructed to wait 20 min dexAMETHasone 10/01/2020 8 mg dexAMETHasone 03/29/2024 [place] [address]-2 423-00 pt tolerated well/instructed to wait 20 min dexAMETHasone 07/23/2024 4 mg [id number] 423-00 Patient tolerated well. dexAMETHasone 12/05/2024 [place] [address]-9 423-00 pt tolerated well/instructed to wait 20 min Ketorolac Tromethamine 01/07/2025 60 mg nd [id number] Patient tolerated well. Ketorolac Tromethamine 01/23/2025 60 mg nd [id number] tient tolerated well. Medical (General) History Medical History History ICD Code restless leg syndrome Surgical History Surgery Date(Month/Year) tonsillectomy carpal tunnel release ankle surgery
[2025-02-08 13:34] VITALS: BP 127/85; PULSE 85; RESP 18; TEMP 36.7; O2SAT 100; BMI 35.4
--- NOTE | 2025-02-08 14:17 | XRR_ITS ---
PROCEDURE INFORMATION: Exam: XR Chest Exam date and time: 02/08/2025 2:26 PM Age: 45 years old Clinical indication: Cough and shortness of breath; Additional info: Cough, SOB TECHNIQUE: Imaging protocol: Radiologic exam of the chest. Views: 1 view. COMPARISON: CR XR chest 1V portable [id number] 05/15/2024 10:10 PM FINDINGS: Lungs: Unremarkable. No consolidation. Pleural spaces: Unremarkable. No pleural effusion. No pneumothorax. Heart/Mediastinum: Unremarkable. No cardiomegaly. Bones/joints: Mild degenerative disease of bilateral acromioclavicular joints. XR/XR chest 1V portable [id number] IMPRESSION: No acute cardiopulmonary process.
[2025-02-08 14:37] LABS: Hematocrit 34.9 % (36-47); Hemoglobin 10.40 g/dL (11.27-16.99); Mean Corpuscular HGB Conc 29.8 g/dL (30-55); Mean Corpuscular Hemoglobin 24.1 pg (27-33); Mean Corpuscular Volume 80.8 fl (85-98); Nucleated Red Blood Cells % 0 %; Platelet Count 187 10^3/cmm (157-399); Red Blood Count 4.32 10^6/uL (3.85-5.65); White Blood Count 4.58 10^3/uL (3.29-11.43)
[2025-02-08 14:45] VITALS: PULSE 79; RESP 18; O2SAT 100
--- NOTE | 2025-02-08 14:45 | W.ED.URI ---
HPI - URI/Sore Throat General: Chief Complaint: Upper Respiratory Infection Stated Complaint: N/V/D coughing sore throat hurts to breath Time Seen by Provider: 02/08/25 14:05 Source: patient Mode of arrival: ambulatory Limitations: no limitations History of Present Illness: The patient is a 45-year-old female present to the Emergency Department complaining of productive cough for the past few days. Stating she has had green sputum has felt fatigued and has had bodyaches. No sick contacts are reported. No history of asthma or COPD. She is not reporting any chest pain or fevers. Her vitals are stable at this time she is respirating well SpO2 100% on room air. Rest of her vitals normal. Actively coughing, states that she has had some mild wheezing as well. States that prior to the symptoms she did have some GI symptoms of nausea vomiting but that these resolved spontaneously. MD elicited complaint: cough Onset (ago): day(s) Associated symptoms: Deny abdominal pain, chills, chest pain, diarrhea, ear or mastoid pain, fever(s), headache(s), nausea or vomiting Related Data Home Medications ?Medication ?Instructions ?Recorded ?Confirmed acetaminophen 500 mg capsule 500 mg PO Q6H PRN Pain 06/14/22 07/06/24 ropinirole 0.5 mg tablet 0.5 - 1 mg PO BEDTIME 06/14/22 07/06/24 omeprazole 20 mg capsule,delayed 20 mg PO DAILY 07/06/24 07/06/24 release zolpidem 10 mg tablet 10 mg PO BEDTIME 07/06/24 07/06/24 Previous Rx's ?Medication ?Instructions ?Recorded buspirone 30 mg tablet 30 mg PO TID 30 days #90 tabs 01/18/23 albuterol sulfate 90 mcg/actuation 1 inh inhalation Q6H PRN shortness 02/08/25 aerosol inhaler of breath or wheezing #6.7 grams azithromycin 500 mg tablet 500 mg PO DAILY 5 days #5 tabs 02/08/25 prednisone 10 mg tablets in a dose 10 mg PO DIRECTED #21 ea 02/08/25 pack Allergies Allergy/AdvReac Type Severity Reaction Status Date / Time amoxicillin Allergy rash Verified 02/08/25 13:37 Review of Systems General: Reports: 10 or more systems reviewed and unremarkable except in HPI and below Const: Denies: fever(s), chills or fatigue Eyes: Denies: change in vision ENMT: Denies: throat pain, ear or mastoid pain or nasal discharge Card: Denies: chest pain, palpitations, swelling of feet/ankles or lightheadedness Resp: Reports: dyspnea, productive cough and wheezing GI: Denies: abdominal pain, nausea, vomiting, diarrhea or constipation : Denies: flank pain, difficulty voiding, dysuria or urinary frequency Musc: Denies: neck pain, back pain or joint pain Skin/Breast: Denies: rash Neuro: Denies: headache(s), numbness in extremities or weakness in extremities PFSH ED PFSH: Medical History Mitral valve prolapse Hx of renal calculi Acid reflux Hiatal hernia Surgical History Hx of breast biopsy Hx of tonsillectomy History of carpal tunnel release of both wrists History of esophagogastroduodenoscopy (EGD) Family History Father Cancer bladder, prostate Hypertension Diabetes Sister Cancer breast Mother Stroke Social History Smoking and tobacco/nicotine status: former use of tobacco/nicotine Alcohol intake: current Alcohol intake frequency: holidays/special occasions only Substance/Drug Use: never Adopted: No Caregiver/support person: No Lives independently: No Household members: significant other and family Housing: House Marital status: Single Number of children: 1 service: No Current occupational status: unemployed Current gender identity: Female Physical Exam Const: COMMON NORMALS: no acute distress and no limitations GENERAL APPEARANCE: cooperative, comfortable and well developed ORIENTATION/CONSCIOUSNESS: Yes awake HENMT: COMMON NORMALS: normocephalic, atraumatic and hearing grossly normal bilaterally HEAD & SCALP: normocephalic and atraumatic Resp: COMMON NORMALS: normal respiratory effort, No retractions, No use of accessory muscles and clear to auscultation bilaterally AUSCULTATION: clear to auscultation bilaterally OTHER: Active coughing, nonproductive. No wheezing. Cardio: COMMON NORMALS: regular rate, regular rhythm, No clicks present (Cardio), No murmurs present (Cardio) and No rub (Cardio) RATE: regular rate RHYTHM: regular rhythm GI: COMMON NORMALS: Normal to inspection, nondistended, normoactive bowel sounds present, Soft to palpation and non-tender AUSCULTATION: Yes normoactive bowel sounds PALPATION: Yes Soft to palpation RECTAL EXAM: deferred Extremity: COMMON NORMALS: normal to inspection, full ROM and capillary refill normal Skin: COMMON NORMALS: no rashes or lesions noted GENERAL SKIN EXAM: no rashes or lesions noted Course Vital Signs: Vital signs: Vital Signs Temperature 98.0 F 02/08/25 13:34 Pulse Rate 84 02/08/25 16:03 Respiratory Rate 18 02/08/25 14:45 Blood Pressure 131/75 02/08/25 16:03 Pulse Oximetry 97 02/08/25 16:03 Oxygen Delivery Me thod Room Air 02/08/25 14:45 MDM - URI/Sore Throat Medical Decision Making The patient presented with productive cough going on for the past few days. Mild wheezing reported as well. Oxygenating well on room air at time of exam and does have an active cough. No pertinent medical history. Chest x-ray did not show any focal consolidation. Her lab work was unremarkable which included normal COVID flu RSV swab. She did have improvement after breathing treatment, I suspect acute bronchitis with reactive airway disease will treat with a Z-Sean and steroids at home. Given a few days off of work to recover. Lab Data 02/08/25 14:31 02/08/25 14:31 Radiology Impressions Chest X-Ray 02/08/25 14:17 IMPRESSION: No acute cardiopulmonary process. Laboratory Results WBC 4.58 10^3/uL (3.29-11.43) 02/08/25 14:31 RBC 4.32 10^6/uL (3.85-5.65) 02/08/25 14:31 Hgb 10.40 g/dL (11.27-16.99) L 02/08/25 14:31 Hct 34.9 % (36-47) L 02/08/25 14:31 MCV 80.8 fl (85-98) L 02/08/25 14: MCH 24.1 pg (27-33) L 02/08/25 14:31 MCHC 29.8 g/dL (30-55) L 02/08/25 14: RDW 15.7 % (12.1-15.1) H 02/08/25 14:31 Plt Count 187 10^3/cmm (157-399) 02/08/25 14: MPV 10.5 fL (7.4-10.4) H 02/08/25 14:31 Neut % (Auto) 61.5 % 02/08/25 14:31 Lymph % (Auto) 24.5 % 02/08/25 14:31 [place] % (Auto) 10.3 % 02/08/25 14:31 Eos % (Auto) 2.2 % 02/08/25 14: Baso % (Auto) 1.1 % 02/08/25 14: Neut # (Auto) 2.82 10^3/uL (1.8-7.7) 02/08/25 14: Lymph # (Auto) 1.1 10^3/uL (0.8-4.8) 02/08/25 14:31 [place] # (Auto) 0.5 10^3/uL (0.2-0.9) 02/08/25 14:31 Eos # (Auto) 0.1 10^3/uL (0.0-0.8) 02/08/25 14:31 Baso # (Auto) 0.1 10^3/uL (0.0-0.1) 02/08/25 14: Nucleated RBC % (auto) 0 % 02/08/25 14: Nucleated RBCs # 0.0 /100WBC 02/08/25 14:31 Sodium 139 mmol/L (136-145) 02/08/25 14:31 Potassium 3.6 mmol/L (3.5-5.1) 02/08/25 14: Chloride 106 mmol/L (98-107) 02/08/25 14: Carbon Dioxide 22 mmol/L (22-29) 02/08/25 14:31 Anion Gap 14.6 (5-19) 02/08/25 14:31 BUN 10 mg/dL (6-20) 02/08/25 14: Creatinine 0.7 mg/dL (0.5-0.9) 02/08/25 14:31 GFR Calculation 89.7 mL/min (90-130) L 02/08/25 14:31 Glucose 85 mg/dL (65-115) 02/08/25 14:31 Calculated Osmolality 286 mOsm/kg (285-295) 02/08/25 14:31 Calcium 8.6 mg/dL (8.5-10.5) 02/08/25 14:31 Total Bilirubin 0.2 mg/dL (0.15-1.2) 02/08/25 14:31 AST 18 U/L (0-32) 02/08/25 14:31 ALT 10 U/L (0-33) 02/08/25 14:31 Alkaline Phosphatase 68 U/L (35-105) 02/08/25 14:31 Total Protein 6.6 g/dL (6.6-8.7) 02/08/25 14:31 Albumin 4.0 g/dL (3.5-5.2) 02/08/25 14:31 Globulin 2.6 g/dL (1.3-4.6) 02/08/25 14:31 Influenza A (PCR) Negative (Negative) 02/08/25 14:48 Influenza Type B (PCR) Negative (Negative) 02/08/25 14:48 RSV (PCR) Negative (Negative) 02/08/25 14:48 SARS-CoV-2 (PCR) Negative (Negative) 02/08/25 14:48 All radiology interpretation(s) finalized by discharge Discharge Plan Discharge Patient Disposition: Home Clinical Impression: Acute bronchitis, Mild reactive airways disease Condition: Stable Prescriptions: New prednisone 10 mg tablets,dose pack 10 mg PO DIRECTED Qty: 21 0RF Rx Instructions: see taper instructions 6 tablets on day 1, 5 tablets on day 2, 4 tablets on day 3, 3 tablets on day 4, 2 tablets on day 5, and 1 tablet a day 6. P.o. albuterol sulfate 90 mcg/actuation HFA aerosol inhaler 1 inh inhalation Q6H PRN (Reason: shortness of breath or wheezing) Qty: 6.7 0RF azithromycin 500 mg tablet 500 mg PO DAILY 5 Days Qty: 5 0RF No Action ropinirole 0.5 mg tablet 0.5 - 1 mg PO BEDTIME acetaminophen 500 mg capsule 500 mg PO Q6H PRN (Reason: Pain) buspirone 30 mg tablet 30 mg PO TID 30 Days Qty: 90 1RF zolpidem 10 mg tablet 10 mg PO BEDTIME omeprazole 20 mg capsule,delayed release(DR/EC) 20 mg PO DAILY Discharge Orders: Discharge ED (Routine); Ordered 02/08/25 Ordered By: Lopez Villarreal Referrals: Jose Fulton MD [Primary Care Provider, Internal Medicine] Patient Instructions: Patient Portal & [place] Instructions Activity Restrictions/Additional Instructions: Take azithromycin as prescribed. Prednisone taper as prescribed. Albuterol inhaler as needed. Monitor for any worsening shortness of breath, fevers, or any other worsening of condition and return to the ED. Follow-up routinely with primary care. Work note is provided. 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
[2025-02-08 14:58] LABS: Alanine Aminotransferase 10 U/L (0-33); Albumin Level 4.0 g/dL (3.5-5.2); Alkaline Phosphatase 68 U/L (35-105); Anion Gap 14.6 (5-19); Aspartate Amino Transferase 18 U/L (0-32); Blood Urea Nitrogen 10 mg/dL (6-20); Calcium 8.6 mg/dL (8.5-10.5); Carbon Dioxide 22 mmol/L (22-29); Chloride 106 mmol/L (98-107); Creatinine Clr Calc Pharmacy 106.2269; Globulin 2.6 g/dL (1.3-4.6); Glucose 85 mg/dL (65-115); Osmolality Calculated 286 mOsm/kg (285-295); Potassium 3.6 mmol/L (3.5-5.1); Sodium 139 mmol/L (136-145); Total Protein 6.6 g/dL (6.6-8.7)
[2025-02-08 15:31] LABS: Respiratory Syncytial Virus Ce NEGATIVE (Negative); SARS-CoV-2 PCR NEGATIVE (Negative)
[2025-02-08 16:03] VITALS: BP 131/75; PULSE 84; O2SAT 97
== END 2025-02-08 16:11 | disposition home or self-care (01) ==
PROVIDERS: Emergency Provider Physician Assistant; PCP Internal Medicine
DX: J20.9 Acute bronchitis, unspecified (principal); J45.909 Unspecified asthma, uncomplicated; Z11.52 Encounter for screening for COVID-19; Z87.891 Personal history of nicotine dependence; J44.9 Chronic obstructive pulmonary disease, unspecified
CPT/HCPCS: 36415; 71045; 80053; 85025; 87637; 94640; 99284; J9999

== ENCOUNTER 2025-02-13 09:45 | Emergency (ER) | payer SELFPAY ==
--- OUTSIDE RECORDS SUMMARY | 2025-02-12 02:20 | XMS_ITS ---
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 Name Role Phone Maddi Puckett Primary Care Provider [phone] MADDI PUCKETT Unavailable Unavailable Allergies No Known Allergies REASON FOR VISIT W.P ER on Sat Bronchitis: finished antibiotics, now has rash across belly not feeling better Medications Medication SIG (Take, Route, Frequency, Duration) Notes Start Date End Date Status busPIRone HCl 30 MG Tablet 1 tablet Oral ly Twice a day Active predniSONE 20 MG Tablet 2 tablet with fo od or milk Orally Once a day; Duration: 7 days 02/12/2025 Active Loratadine 10 MG Tablet TAKE 1 TABLET BY MOUTH ONCE DAILY Oral; Duration: 30 Days Active ALPRAZolam 0.5 MG Tablet Oral; Duration: 15 Days Unknown Flonase Allergy Relief 50 MCG/ACT Suspension 1 spray in each nostril Nasally Twice a day; Duration: 30 days 07/10/2024 Active rOPINIRole HCl 1 MG Tablet 1 tablet 1 to 3 hours before bedtime Orally Once a day Active Ambien 10 MG Tablet 1 tablet at bedtime as needed Orally Once a day Active Omeprazole 20 MG Capsule Delayed Release 1 capsule 30 minutes before morning meal Orally Once a day Active Social History Tobacco Use: Social History [...] smoke? once a day Section Notes: 10/01/20 11/10/22 PHQ9 07/10/2024 PHQ9 Vital Signs Temperature 98.4 degrees Fahrenheit 02/13/20 25 Blood pressure systolic 118 mm Hg 02/13/20 25 Blood pressure diastolic 70 mm Hg 025 Heart Rate 79 /min 02/12/2025 Respiratory Rate 20 /min 02/12/2025 Height 63 in 02/12/2025 Weight 206 lbs 02/12/2025 BMI 36.49 kg/m2 02/12/2025 Oximetry 97 % 02/12/2025 Height-cm 160.02 cm 02/12/2025 Weight-kg 93.44 kg 02/12/2025 Encounters Encounter Location Date Provider Diagnosis [facility] [address] [address] 02/12/2025 Maddi Puckett Acute bronchitis J20.9 Assessments Encounter Date Diagnosis (ICD Code) Assessment Notes Treatment Notes Treatment Clinical Notes Section Notes 02/12/2025 Acute bronchitis (ICD-10 - J20.9) Increase fluids, take medication as directed. RTC if no improvement with treatment. Questions asked and answered; discharged to home. Plan Of Treatment Medication Medication Name Sig Start Date Stop Date Notes predniSONE 20 MG Tablet 2 tablet with fo od or milk Orally Once a day; Duration: 7 days 02/12/2025 Treatment Notes Assessment Notes Acute bronchitis Increase fluids, chao e medication as directed. RTC if no improvement with treatment. Questions asked and answered; discharged to home. Next Appt Details Follow Up: prn, Reason: History and Physical Notes * HPI (History of Present Illness) Category Sub-Category Detail Notes Category Not es Provider Note Here today wit h continued cough, seen in [facility] ED on 02-08, given prednisone and Zithromax. Denies fever, congestion, sore throat. Examination Category Sub-Category Detail Notes Category Not es General Examination GENERAL APPEARANCE: alert, w ell hydrated, in no distress EYES: PERRL; normal conjun ctiva NECK/THYROID: neck supple, full ra nge of motion HEART: regular rate and rhy thm LUNGS: clear to auscultatio n bilaterally SKIN: warm and dry , no ra shes MUSCULOSKELETAL: normal PSYCH: judgement and insigh t good , thought content without suicidal ideation, delusions , thought process logical, goal directed Progress Notes * YULISSA WYNNEDOB: 8 (45 yo F)Acc No.[id number]:02/12/2025 Patient: YULISSA CHAUDHARI Provider: Cody Puckett APRN :1980 A ge:45 Y S ex:Female Date:02/12/2025 Address:[address] [address], [place], [id number] Check In:08:23 AM CSTCheck O ut:08:31 AM DIRECTOR PAYER Subjective: * Chief Complaints: * W .P ER on Sat Bronchitis: finished antibiotics, now has rash across belly not feeling better * HPI: P rovimars Note: Here today with continued cough, seen in [facility] ED on 02-08, given prednisone and Zithromax. Denies fever, congestion, sore throat. * ROS: G eneral - Multi System: Constitutional D enies fever, chills, body aches, change in appetite, or problems with sleep. C ardiovascular D enies any recent chest pain, irregular heart beats, syncope, or shortness of breath. R espiratory R eports c ough. D enies any shortness of breath or hemoptysis. G astrointestinal D enies a bdominal pain, r ecent change in bowel habits. M usculoskeletal D enies any joint pain or swelling, no recent trauma.. I ntegumentary D enies any rashes, bruising, or skin changes..?Psychiatric D enies depression, anxiety, or suicidal thoughts/actions.. * Medical History: Restless leg syndrome Medical History Verified * Surgical History: tonsillectomy carpal tunnel release ankle surgery Surgical History verified. * Hospitalization/Major Diagno stic Procedure: Denies Past Hospitalization. * Family History: F ather: hypertension, type II diabetes, bladder cancer. M other: , stroke, chronic obstructive pulmonary disease. F amily History Verified.. * Social History: T obacco Use: T obacco Control (Standard) T obacco use: U ses tobacco in other forms A dditional Findings: Tobacco user e -cigarette Tobacco use other than smoking A re you an other tobacco user? F ORMER SMOKER H ow often do you smoke? o nce a day S ocial History Verified. 11/10/22 PHQ9 07/10/2024 PHQ9. * Medications: T akingLoratadine 10 MG Tablet TAKE 1 TABLET BY MOUTH ONCE DAILY Oral Omeprazole 20 MG Capsule Delayed Release 1 capsule 30 minutes before morning meal Orally Once a day Ambien 10 MG Tablet 1 tablet at bedtime as needed Orally Once a day rOPINIRole HCl 1 MG Tablet 1 tablet 1 to 3 hours before bedtime Orally Once a day busPIRone HCl 30 MG Tablet 1 tablet Orally Twice a day Flonase Allergy Relief 50 MCG/ACT Suspension 1 spray in each nostril Nasally Twice a day Taking Loratadine 10 MG Tablet TAKE 1 TABLET BY MOUTH ONCE DAILY Oral Taking Omeprazole 20 MG Capsule Delayed Release 1 capsule 30 minutes before morning meal Orally Once a day Taking Ambien 10 MG Tablet 1 tablet at bedtime as needed Orally Once a day Taking rOPINIRole HCl 1 MG Tablet 1 tablet 1 to 3 hours before bedtime Orally Once a day Taking busPIRone HCl 30 MG Tablet 1 tablet Orally Twice a day Taking Flonase Allergy Relief 50 MCG/ACT Suspension 1 spray in each nostril Nasally Twice a day UnknownALPRAZolam 0.5 MG Tablet Oral Medication List reviewed and reconciled with the patientUnknown ALPRAZolam 0.5 MG Tablet Oral Medication List reviewed and reconciled with the patient * Allergies: N .K.D.A.yesAllergies Verified. Objective: * Vitals: H t: 63 in, Wt:206lbs, Wt-k.44 kg, BMI:36.49Index, Temp:98.4F, BP:118/70mm Hg, HR:79/min, RR:20/min, Oxygen sat %:97%, Pain scale: 0 1-10, Ht-cm: 160.02 cm. * Examination: G eneral Examination: GENERAL APPEARANCE: a lert, well hydrated, in no distress.? EYES: P ERRL; normal conjunctiva. NECK/THYROID: n ad supple, full range of motion. SKIN: w arm and dry , no rashes. HEART: r egular rate and rhythm. LUNGS: c lear to auscultation bilaterally. MUSCULOSKELETAL: n ormal. PSYCH: j udgement and insight good , thought content without suicidal ideation, delusions , thought process logical, goal directed. Assessment: * Assessment: 1. A cute bronchitis - J20.9 (Primary) Plan: * Treatment: * Procedure Codes: 3 078F DIAST BP < 80 MM [id number] SYST BP LT 130 MM HG * Preventive Medicine: Screenings: B REAST CANCER SCREENING: Date of most recent screening: D eclines C ERVICAL CANCER SCREENING: Cancer screening cervical (age 21-64)?declines C OLORECTAL CANCER SCREENING: Date of last colonoscopy D eclined D EPRESSION SCREENING: Date of most recent screenin 07/10/2024 The patient denies: a nxiety, depressed mood, difficulty sleeping, lack of energy, lack of interest in things that were enjoyable, poor appetite, sadness, thoughts of harming him/herself, thought of harming someone else, trouble concentrating, weight gain, weight loss, any depressive symptoms at this time Suicidal ideation: h as never been expressed/considered Homicidal ideation: h as never been expressed/considered * Follow Up: p rn Billing Information: * Visit Code: 79622 Office Visit, Est Pt., Level 3. * Procedure Codes: 3078F DIAST BP < 80 MM HG. 3074F SYST BP LT 130 MM HG. * CTOR PAYER Sign off status: Completed true * Provider: Cody Puckett APRN Date: 04/14/2024 Generated for Danelle feldman/Davon/Chance on: 04/15/2024 09:51 AM DIRECTOR PAYER
[2025-02-13 09:48] VITALS: BP 143/82; PULSE 103; RESP 16; TEMP 36.6; O2SAT 100
--- OUTSIDE RECORDS SUMMARY | 2025-02-13 09:52 | XMS_ITS | Patient Health Record ---
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 Name Role Phone Maddi Puckett Primary Care Provider [phone] MADDI PUCKETT Unavailable Unavailable Roberts, Criselda Unavailable [phone] Allergies No Known Allergies Results Component Value Reference Range Notes COVID-19 RAPID - [id number] Reviewed date:03/29/2024 11:38:12 AM Interpretation: Performing Lab: Notes/Report: COVID19 negative Rapid Strep (Strep A) -[id number] Reviewed date:01/07/2025 03:44:39 PM Interpretation: Performing Lab: Notes/Report: Strep positive Influenza A/B - [id number] Reviewed date:01/07/2025 03:45:11 PM Interpretation: Performing Lab: Notes/Report: A negative B negative COVID-19 RAPID - [id number] Reviewed date:01/07/2025 03:44:54 PM Interpretation: Performing Lab: Notes/Report: COVID19 negative Reason For Referral No Information Medications Medication SIG (Take, Route, Frequency, Duration) Notes Start Date End Date Status busPIRone HCl 30 MG Tablet 1 tablet Oral ly Twice a day Active predniSONE 20 MG Tablet 2 tablet with fo od or milk Orally Once a day; Duration: 7 days 02/12/2025 Active rOPINIRole HCl 1 MG Tablet 1 tablet 1 to 3 hours before bedtime Orally Once a day Active Loratadine 10 MG Tablet TAKE 1 TABLET BY MOUTH ONCE DAILY Oral; Duration: 30 Days Active ALPRAZolam 0.5 MG Tablet Oral; Duration: 15 Days Unknown Flonase Allergy Relief 50 MCG/ACT Suspension 1 spray in each nostril Nasally Twice a day; Duration: 30 days 07/10/2024 Active Ambien 10 MG Tablet 1 tablet at bedtime as needed Orally Once a day Active Omeprazole 20 MG Capsule Delayed Release 1 capsule 30 minutes before morning meal Orally Once a day Active Immunizations Vaccine Route Administration Date Status Comme nts Flucelvax Trivalent, Syringe 0.5 mL, PF Unknown 025 Refused Social History Tobacco Use: Social History Observation Description Date Details (start date - stop date) Unknown Social History Depression Screening Social Info Question Answer Notes PHQ-9 Little interest or pleasure in doing thin gs Not at all Feeling down, depressed, or hopeless Not at all Trouble falling or staying asleep, or sleeping t oo much Not at all Feeling tired or having little energy Not at all Poor appetite or overeating Not at all Feeling bad about yourself, or that you are a failure, or have let yourself or your family down Not at all Trouble concentrating on thi ngs, such as reading the newspaper or watching television Not at all Moving or speaking so slowly that other people could have noticed. Or the opposite ? being so fidgety or restless that you have been moving around a lot more than usual Not at all Thoughts that you would be b mynor off , or of hurting yourself in some way Not at all Total Score 0 Drugs/Alcohol: Social Info Question Answer Notes Alcohol Screen (Audit-C) Did you have a drink containing alcohol in the past year? Yes How often did you have a drink containing alcohol in the past year? Monthly or less (1 point) Points 1 Interpretation Negative Tobacco Use: Social Info Question Answer Notes Tobacco Control (Standard) Tobacco use: Uses tobacco i n other forms Additional Findings: Tobacco user e-cigarette Tobacco use other than smoking: Are you an other tobac co user? FORMER SMOKER How often do you smoke? once a day Section Notes: 10/01/20 10/01/20 10/01/20 11/10/22 PHQ9 10/01/20 11/10/22 PHQ9 10/01/20 11/10/22 PHQ9 07/10/2024 PHQ9 10/01/20 11/10/22 PHQ9 07/10/2024 PHQ9 10/01/20 11/10/22 PHQ9 07/10/2024 PHQ9 10/01/20 11/10/22 PHQ9 07/10/2024 PHQ9 10/01/20 11/10/22 PHQ9 07/10/2024 PHQ9 10/01/20 11/10/22 PHQ9 07/10/2024 PHQ9 10/01/20 11/10/22 PHQ9 07/10/2024 PHQ9 10/01/20 11/10/22 PHQ9 10/01/20 11/10/22 PHQ9 10/01/20 Problems Problem Type SNOMED Code ICD Code Onset Dates Problem Status W/U Status Risk Notes Problem Hypothyroidism (79302267) Hypothyroidism, unspecified type (E03.9) Active confirmed Problem Sinusitis (31382432) Sinusitis (J32.9) Active confirmed Problem Seasonal allergy (468308473) Seasonal allergies (J30.2) Active confirmed Problem Body mass index 40+ - morbidly obese (065646093) Body mass index 40.0-44.9, adult (Z68.41) Active confirmed Problem Body mass index 40+ - severely obese (743897091) Body mass index [BMI] 40.0-44.9, adult (Z68.41) Active confirmed Vital Signs Heart Rate 79 /min 02/12/2025 Temperature 98.4 degrees Fahrenheit 02/12/2025 Respiratory Rate 20 /min 02/12/2025 Height-cm 160.02 cm 02/12/2025 Oximetry 97 % 02/12/2025 Blood pressure diastolic 70 mm Hg 02/12/2025 Weight-kg 93.44 kg 02/12/2025 Height 63 in 02/12/2025 Blood pressure systolic 118 mm Hg 02/12/2025 Weight 206 lbs 02/12/2025 BMI 36.49 kg/m2 02/12/2025 Encounters Encounter Location Date Provider Diagnosis [facility] [address] [place] [address] 07/23/2024 Maddi Puckett Acute contact dermatitis L25.9 [facility] [address] [place] [address] 01/14/2025 Maddi Puckett Acute otitis media, left H66.92 [facility] [address] [place] [address] 01/07/2025 Maddi Puckett Strep pharyngitis J0 2.0 ; Aching headache R51.9 ; Encounter for immunization Z23 and Immunization not carried out because of patient refusal Z28.21 [facility] [address] [place] [address] 12/05/2024 Criselda Roberts Sinusitis J32.9 and Bronchitis J40 [facility] [address] [place] [address] 07/10/2024 Maddi Puckett Seasonal allergies J30.2 ; Nasal congestion R09.81 and Depression screen Z13.31 [facility] [address] [place] [address] 03/29/2024 Criselda Roberts Vomiting R11.10 ; Diarrhea R19.7 ; Rash R21 and Gastroenteritis K52.9 [facility] [address] [place] [address] 02/12/2025 Maddi Puckett Acute bronchitis J20 .9 [facility] [address] [place] [address] 01/23/2025 Maddi Puckett Aching headache R51. 9 Assessments Encounter Date Diagnosis (ICD Code) Assessment Notes Treatment Notes Treatment Clinical Notes Section Notes 12/05/2024 Bronchitis (ICD-10 - J40) z alicia 12/05/2024 Sinusitis (ICD-10 - J32.9) depomedrol/decad michelle im 01/07/2025 Strep pharyngitis (ICD-10 - J02.0) Increase fluids, take medication as directed. RTC if no improvement with treatment. Questions asked and answered; discharged to home. 01/07/2025 Aching headache (ICD-10 - R51.9) Toradol injection given today. 02/12/2025 Acute bronchitis (ICD-10 - J20.9) Increase fluids, take medication as directed. RTC if no improvement with treatment. Questions asked and answered; discharged to home. 01/23/2025 Aching headache (ICD-10 - R51.9) Toradol injection given today. If no improvement with treatment RTC or follow up with PCP. Questions asked and answered; discharged to home. 01/14/2025 Acute otitis media, left (ICD-10 - H66.92) Increase fluids, take medication as directed. RTC if no improvement with treatment. Questions asked and answered; discharged to home. 07/10/2024 Nasal congestion (ICD-10 - R09.81) 03/29/2024 Vomiting (ICD-10 - R11.10) Nausea and Vomiting: Care Instructions material was printed zofran 03/29/2024 Diarrhea (ICD-10 - R19.7) Diarrhea: Care Instructions material was printed lomotil covid swab; negative 07/10/2024 Seasonal allergies (ICD-10 - J30.2) 07/23/2024 Acute contact dermatitis (ICD-10 - L25.9) Steroid injection given. RTC if no improvement with treatment. 03/29/2024 Rash (ICD-10 - R21) depomedr ol/decad michelle im 07/10/2024 Depression screen (ICD-10 - Z13.31) 01/07/2025 Encounter for immunization (ICD-10 - Z23) 01/07/2025 Immunization not carried out because of patient refusal (ICD-10 - Z28.21) 03/29/2024 Gastroenteritis (ICD-10 - K52.9) Gastroenteritis: Care Instructions material was printed 03/29/2024 Other Questions asked and answered; discharged to home. 12/05/2024 Other Questions asked and answered; discharged to home. Plan Of Treatment No Information Medications Administered Medication Instructions Date of Administration Dosage Notes DEPO-Medrol 03/29/2024 40 mg ndc 57051/157 3-10 pt tolerated well/instructed to wait 20 min DEPO-Medrol 07/23/2024 40 mg [id number] 3-01 Patient tolerated well. DEPO-Medrol 12/05/2024 40 mg ndc 07660-710 3-01 pt tolerated well/instructed to wait 20 min dexAMETHasone 10/01/2020 8 mg dexAMETHasone 03/29/2024 4 mg ndc 96767-2 423-00 pt tolerated well/instructed to wait 20 min dexAMETHasone 07/23/2024 4 mg [id number] 423-00 Patient tolerated well. dexAMETHasone 12/05/2024 4 mg ndc 87072-2 423-00 pt tolerated well/instructed to wait 20 min Ketorolac Tromethamine 01/07/2025 60 mg [facility] [id number] Patient tolerated well. Ketorolac Tromethamine 01/23/2025 60 mg [facility] [id number] tient tolerated well. Medical (General) History Medical History History ICD Code restless leg syndrome Surgical History Surgery Date(Month/Year) tonsillectomy carpal tunnel release ankle surgery
--- OUTSIDE RECORDS SUMMARY | 2025-02-13 09:52 | XMS_ITS | Patient Health Record ---
Author Organization [facility] Address [address] [place], [place] [address] Care Team Providers Care Bpm Developer Name Role Phone Non [facility] Provider, Provider Primary Care P bob Unavailable Rabia Quinn Unavailable [phone] [facility], [facility] Unavailable Allergies No Known [...] Insured Coverage Start Date Coverage End Date B-Obvious [address] [place] Pizarro [phone] [id number] Shabana Mancini Self - patient is the insured Medical (General) History Medical History History ICD Code acid reflux Hiatal hernia atrial septal defect mitral valve prolapse Hypothyroidism Surgical History Surgery Date(Month/Year) tonsillectomy breast biopsy ankle surgery, right polyp removal cyst removal carpal tunnel release x2 Hospitalization History Reason Date(Month/Year) childbirth
--- NOTE | 2025-02-13 10:01 | XR_ITS ---
WS: [id number] Exam: XR chest 1V portable [id number] Date/Time of Exam: 02/13/2025 10:01 AM Reason For Exam: cough Comparison 02/08/2025. Lungs are fully inflated and clear. Normal cardiomediastinal silhouette and regional bony elements. XR/XR chest 1V portable [id number] IMPRESSION: 1. Negative chest.
--- NOTE | 2025-02-13 10:16 | W.ED.URI ---
HPI - URI/Sore Throat General: Chief Complaint: Upper Respiratory Infection Stated Complaint: Wheezing Rash Time Seen by Provider: 02/13/25 09:57 Source: patient Mode of arrival: ambulatory Limitations: no limitations History of Present Illness: 45-year-old female states been having cough congestion for the last week. States she seen here a week ago and was started on a Z-Sean along with albuterol and steroids states she has had minimal improvement to her cough. Patient's not hypoxic here she had some mild dyspnea denies any fevers denies any production with her cough. Denies any chest pain Related Data Home Medications ?Medication ?Instructions ?Recorded ?Confirmed acetaminophen 500 mg capsule 500 mg PO Q6H PRN Pain 06/14/22 07/06/24 ropinirole 0.5 mg tablet 0.5 - 1 mg PO BEDTIME 06/14/22 07/06/24 omeprazole 20 mg capsule,delayed 20 mg PO DAILY 07/06/24 07/06/24 release zolpidem 10 mg tablet 10 mg PO BEDTIME 07/06/24 07/06/24 Previous Rx's ?Medication ?Instructions ?Recorded buspirone 30 mg tablet 30 mg PO TID 30 days #90 tabs 01/18/23 albuterol sulfate 90 mcg/actuation 1 inh inhalation Q6H PRN shortness 02/08/25 aerosol inhaler of breath or wheezing #6.7 grams prednisone 10 mg tablets in a dose 10 mg PO DIRECTED #21 ea 02/08/25 pack albuterol sulfate 90 mcg/actuation 2 inh inhalation Q6H PRN shortness 02/13/25 aerosol inhaler of breath or wheezing #8 grams Allergies Allergy/AdvReac Type Severity Reaction Status Date / Time amoxicillin Allergy rash Verified 02/08/25 13:37 Review of Systems Resp: Reports: dyspnea and non-productive cough PFSH ED PFSH: Medical History Mitral valve prolapse Hx of renal calculi Acid reflux Hiatal hernia Surgical History Hx of breast biopsy Hx of tonsillectomy History of carpal tunnel release of both wrists History of esophagogastroduodenoscopy (EGD) Family History Father Cancer bladder, prostate Hypertension Diabetes Sister Cancer breast Mother Stroke Social History Smoking and tobacco/nicotine status: former use of tobacco/nicotine Alcohol intake: current Alcohol intake frequency: holidays/special occasions only Substance/Drug Use: never Adopted: No Caregiver/support person: No Lives independently: No Household members: significant other and family Housing: House Marital status: Single Number of children: 1 service: No Current occupational status: unemployed Current gender identity: Female Physical Exam Const: COMMON NORMALS: no acute distress, patient oriented x3 and healthy appearing HENMT: COMMON NORMALS: normocephalic and atraumatic HEAD & SCALP: normocephalic and atraumatic Neck/C-Spine: COMMON NORMALS: full ROM and supple Chest: COMMONS NORMALS: normal inspection of the chest and normal palpation of entire chest wall Resp: COMMON NORMALS: normal respiratory effort, No retractions, No use of accessory muscles and clear to auscultation bilaterally AUSCULTATION: clear to auscultation bilaterally Cardio: COMMON NORMALS: regular rate, regular rhythm and No murmurs present (Cardio) RATE: regular rate RHYTHM: regular rhythm Extremity: COMMON NORMALS: normal to inspection and full ROM Neuro: COMMON NORMALS: patient oriented x3, moves all extremities and no focal motor deficits Psych: COMMON NORMALS: mental status grossly normal, Normal thought process present and cooperative THOUGHT PROCESS: Normal thought process present Skin: COMMON NORMALS: no rashes or lesions noted and no wounds GENERAL SKIN EXAM: no rashes or lesions noted Course Vital Signs: Vital signs: Vital Signs Temperature 97.8 F 02/13/25 09:48 Pulse Rate 85 02/13/25 10:17 Respiratory Rate 16 02/13/25 10:17 Blood Pressure 143/82 02/13/25 09:48 Pulse Oximetry 98 02/13/25 10:17 Oxygen Delivery Me thod Room Air 02/13/25 10:17 MDM - URI/Sore Throat Medical Decision Making Patient presents here with cough congestion differential included pneumonia, upper respiratory infection. Patient has been well-appearing here she has completed a course of steroids along with azithromycin. Did interpret her chest x-ray showed no acute abnormalities no signs of pneumonias. Did give her breathing treatment here she had some improvement. Did give her 1 dose of IM Decadron will prescribe albuterol for home this is likely a viral URI she is to follow-up with PCP and return if worsening she understands agrees to plan. Medical Records I reviewed the patient's medical records. Lab Data Radiology Impressions Chest X-Ray 02/13/25 10:01 IMPRESSION: 1. Negative chest. All radiology interpretation(s) finalized by discharge Discharge Plan Discharge Patient Disposition: Home Clinical Impression: Upper respiratory infection Condition: Stable Prescriptions: New albuterol sulfate 90 mcg/actuation HFA aerosol inhaler 2 inh INHALATION Q6H PRN (Reason: shortness of breath or wheezing) Qty: 8 0RF No Action ropinirole 0.5 mg tablet 0.5 - 1 mg PO BEDTIME acetaminophen 500 mg capsule 500 mg PO Q6H PRN (Reason: Pain) buspirone 30 mg tablet 30 mg PO TID 30 Days Qty: 90 1RF zolpidem 10 mg tablet 10 mg PO BEDTIME omeprazole 20 mg capsule,delayed release(DR/EC) 20 mg PO DAILY prednisone 10 mg tablets,dose pack 10 mg PO DIRECTED Qty: 21 0RF Rx Instructions: see taper instructions 6 tablets on day 1, 5 tablets on day 2, 4 tablets on day 3, 3 tablets on day 4, 2 tablets on day 5, and 1 tablet a day 6. P.o. albuterol sulfate 90 mcg/actuation HFA aerosol inhaler 1 inh inhalation Q6H PRN (Reason: shortness of breath or wheezing) Qty: 6.7 0RF Discharge Orders: Discharge ED (Routine); Ordered 02/13/25 Ordered By: Cuauhtemoc Wayne Referrals: Jose Fulton MD [Primary Care Provider, Internal Medicine] - 4-7 days Discharge Diet: Advance as tolerated Discharge Activity: Resume usual activity Patient Instructions: Upper Respiratory Infection (ED) Print Language: Nicaraguan Coding Level of Care Code ED Senior Executive Compensation Analyst for Stephany Sanders
[2025-02-13 10:17] VITALS: PULSE 85; RESP 16; O2SAT 98
[2025-02-13 10:50] VITALS: BP 122/80; PULSE 102; O2SAT 98
== END 2025-02-13 10:53 | disposition home or self-care (01) ==
PROVIDERS: Emergency Provider Emergency Medicine; PCP Internal Medicine
DX: J06.9 Acute upper respiratory infection, unspecified (principal); Z87.891 Personal history of nicotine dependence
CPT/HCPCS: 71045; 94640; 96372; 99284; J1100; J9999

== ENCOUNTER 2025-02-24 11:26 | Emergency (ER) | payer SELFPAY ==
[2025-02-24 11:56] VITALS: BP 145/91; PULSE 98; RESP 17; TEMP 36.8; O2SAT 100; BMI 35.4
[2025-02-24 12:42] VITALS: PULSE 97; O2SAT 100
--- NOTE | 2025-02-24 12:45 | XRR_ITS ---
PROCEDURE INFORMATION: Exam: XR Right Elbow Exam date and time: 02/24/2025 12:45 PM Age: 45 years old Clinical indication: Injury or trauma; Other: Not specified; Blunt trauma (contusions or hematomas); Elbow; Right TECHNIQUE: Imaging protocol: Radiologic exam of the right elbow. Views: 3 or more views. COMPARISON: CR XR shoulder RT min 2V* [id number] 10/08/2022 11:04 PM FINDINGS: Bones/joints: Normal. Soft tissues: Normal. XR/XR elbow RT min 3V* [id number] IMPRESSION: No acute findings.
--- NOTE | 2025-02-24 12:45 | W.ED.SKABFB ---
HPI - Skin/Abscess/Foreign Bdy General: Chief complaint: Skin/Abscess/Foreign Body Stated complaint: rash all over, R arm pain Time Seen by Provider: 02/24/25 12:40 Source: patient Mode of arrival: ambulatory Limitations: no limitations History of Present Illness: 45-year-old female states she has had a rash to trunk and arms has been very pruritic in nature. States her girlfriend also had the same rash. She denies any fevers. Denies any history of allergic reactions. Patient states she also had a fall last week and has some slight right elbow pain states she landed directly on her elbow denies any other injuries. Related Data Home Medications ?Medication ?Instructions ?Recorded ?Confirmed acetaminophen 500 mg capsule 500 mg PO Q6H PRN Pain 06/14/22 07/06/24 ropinirole 0.5 mg tablet 0.5 - 1 mg PO BEDTIME 06/14/22 07/06/24 omeprazole 20 mg capsule,delayed 20 mg PO DAILY 07/06/24 07/06/24 release zolpidem 10 mg tablet 10 mg PO BEDTIME 07/06/24 07/06/24 Previous Rx's ?Medication ?Instructions ?Recorded buspirone 30 mg tablet 30 mg PO TID 30 days #90 tabs 01/18/23 albuterol sulfate 90 mcg/actuation 1 inh inhalation Q6H PRN shortness 02/08/25 aerosol inhaler of breath or wheezing #6.7 grams prednisone 10 mg tablets in a dose 10 mg PO DIRECTED #21 ea 02/08/25 pack albuterol sulfate 90 mcg/actuation 2 inh inhalation Q6H PRN shortness 02/13/25 aerosol inhaler of breath or wheezing #8 grams permethrin 5 % topical cream 1 applic topical Q14D 2 doses #60 02/24/25 (Elimite) grams Allergies Allergy/AdvReac Type Severity Reaction Status Date / Time amoxicillin Allergy rash Verified 02/08/25 13:37 Review of Systems Skin/Breast: Reports: rash [facility] ED PFSH: Medical History Mitral valve prolapse Hx of renal calculi Acid reflux Hiatal hernia Surgical History Hx of breast biopsy Hx of tonsillectomy History of carpal tunnel release of both wrists History of esophagogastroduodenoscopy (EGD) Family History Father Cancer bladder, prostate Hypertension Diabetes Sister Cancer breast Mother Stroke Social History Smoking and tobacco/nicotine status: former use of tobacco/nicotine Alcohol intake: current Alcohol intake frequency: holidays/special occasions only Substance/Drug Use: never Adopted: No Caregiver/support person: No Lives independently: No Household members: significant other and family Housing: House Marital status: Single Number of children: 1 service: No Current occupational status: unemployed Current gender identity: Female Physical Exam Const: COMMON NORMALS: no acute distress, patient oriented x3 and healthy appearing HENMT: COMMON NORMALS: normocephalic and atraumatic HEAD & SCALP: normocephalic and atraumatic Neck/C-Spine: COMMON NORMALS: full ROM and supple Chest: COMMONS NORMALS: normal inspection of the chest Resp: COMMON NORMALS: normal respiratory effort Cardio: COMMON NORMALS: regular rate RATE: regular rate Extremity: COMMON NORMALS: full ROM NARRATIVE EXTREMITY EXAM: Tenderness over right elbow Neuro: COMMON NORMALS: patient oriented x3, moves all extremities and no focal motor deficits Psych: COMMON NORMALS: mental status grossly normal, Normal thought process present and cooperative THOUGHT PROCESS: Normal thought process present Skin: NARRATIVE SKIN EXAM: Rash noted to trunk with scabs likely scabies Course Vital Signs: Vital signs: Vital Signs Temperature 98.2 F 02/24/25 11:56 Pulse Rate 97 02/24/25 12:42 Respiratory Rate 17 02/24/25 11:56 Blood Pressure 145/91 02/24/25 11:56 Pulse Oximetry 100 02/24/25 12:42 Oxygen Delivery Me thod Room Air 02/24/25 12:42 MDM - Skin/Abscess/Foreign Bdy Medicial Decision Making Patient presents with rash consistent with scabies we will prescribe her some Elimite did give her instructions on how to use. She has no signs of cellulitis or allergic reaction. Has some slight elbow pain from a fall her exam here is benign x-ray showed no acute fracture reviewed by me she is follow-up with PCP return if worsening. Medical Records I reviewed the patient's medical records. Lab Data I reviewed the patient's lab results. All radiology interpretation(s) finalized by discharge Discharge Plan Discharge Patient Disposition: Home Clinical Impression: Rash, Contusion of right elbow Condition: Stable Prescriptions: New permethrin [Elimite] 5 % cream 1 applic topical Q14D Qty: 60 0RF Rx Instructions: apply second treatment 14 days after first treatment if live lice remain No Action ropinirole 0.5 mg tablet 0.5 - 1 mg PO BEDTIME acetaminophen 500 mg capsule 500 mg PO Q6H PRN (Reason: Pain) buspirone 30 mg tablet 30 mg PO TID 30 Days Qty: 90 1RF zolpidem 10 mg tablet 10 mg PO BEDTIME omeprazole 20 mg capsule,delayed release(DR/EC) 20 mg PO DAILY albuterol sulfate 90 mcg/actuation HFA aerosol inhaler 2 inh INHALATION Q6H PRN (Reason: shortness of breath or wheezing) Qty: 8 0RF prednisone 10 mg tablets,dose pack 10 mg PO DIRECTED Qty: 21 0RF Rx Instructions: see taper instructions 6 tablets on day 1, 5 tablets on day 2, 4 tablets on day 3, 3 tablets on day 4, 2 tablets on day 5, and 1 tablet a day 6. P.o. albuterol sulfate 90 mcg/actuation HFA aerosol inhaler 1 inh inhalation Q6H PRN (Reason: shortness of breath or wheezing) Qty: 6.7 0RF Discharge Orders: Discharge ED (Routine); Ordered 02/24/25 Ordered By: Cuauhtemoc Wayne Referrals: Jose Fulton MD [Primary Care Provider, Internal Medicine] - 4-7 days Discharge Diet: Advance as tolerated Discharge Activity: Resume usual activity Patient Instructions: Scabies (ED) Print Language: Yi Coding Level of Care Code ED Field Services Analyst for Stephany Sanders
== END 2025-02-24 12:58 | disposition home or self-care (01) ==
PROVIDERS: Emergency Provider Emergency Medicine; PCP Internal Medicine
DX: R21 Rash and other nonspecific skin eruption (principal); S50.01XA Contusion of right elbow, initial encounter; W19.XXXA Unspecified fall, initial encounter
CPT/HCPCS: 73080; 99283

== ENCOUNTER 2025-04-01 13:13 | Emergency (ER) | payer SELFPAY ==
--- NOTE | 2025-04-01 13:10 | ECG_ITS ---
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 Measurements Intervals [place] Rate: 83 P: 30 CA: 137 QRS: 20 QRSD: 85 T: 36 QT: 390 QTc: 459 Interpretive Statements SINUS RHYTHM Compared to ECG 05/15/2024 19:49:19 No significant changes Electronically Signed On 04-03-2025 16:06:48 PROCESS CONTROL SPECIALIST by Umberto Tomlin M.D. [email or web address] [id number]
[2025-04-01 13:15] VITALS: PULSE 91; RESP 18; TEMP 36.7; O2SAT 100; BMI 35.4
--- OUTSIDE RECORDS SUMMARY | 2025-04-01 13:21 | XMS_ITS | Patient Health Record ---
Author Organization [facility] Address [address] [place], [place] [id number] Care Team Providers Care Foot Drill Operator Name Role Phone Non [facility] Provider, Provider Primary Care P bob Unavailable Rabia Quinn Unavailable [phone] [facility], [facility] Unavailable [phone] Allergies No Known Allergies Reason For Referral No Information Medications Medication SIG (Take, Route, Frequency, Duration) Notes Start Date End Date Status Cephalexin 500 MG Capsule 1 capsule Oral ly Four times a day; Duration: 5 day(s) 11/27/2020 Active Zolpidem Tartrate 10 MG Tablet 1 tablet at bedtime as needed Orally Once a day Active busPIRone HCl 30 MG Tablet 1 tablet Oral ly Twice a day Active Methocarbamol 750 MG Tablet 1 tablet Ora lly every 4 hrs; Duration: 30 day(s) Active rOPINIRole HCl 0.5 MG Tablet 1 tablet 1 to 3 hours before bedtime Orally Once a day; Duration: 30 day(s) Active Levothyroxine Sodium 25 MCG Tablet 1 tablet in the morning on an empty stomach Orally Once a day; Duration: 30 day(s) Active Omeprazole 20 MG Capsule Delayed Release as directed Orally BID Ac tive traMADol HCl 50 MG Tablet 1 tablet Orall y twice a day as needed; Duration: 5 days 11/25/2020 Active Social History Tobacco Use: Social History Observation Description Date Details (start date - stop date) Former Smoker NA - NA Sex Assigned At : Social History Observation Description Sex Assigned At Female Social History Pre-visit Preparation Social Info Question Answer Notes Did you have a ER Visit No Hospital Visit No Did you do a team huddle Did you do a team huddle Yes Communication Needs Social Info Question Answer Notes Communication Needs Difficulty Hearing No Difficulty with Vision Yes Glasses Difficulty with Reading or Writing No Does the patient speak Turkish? No Learning Needs Assessment Social Info Question Answer Notes Learn Best By Verbal Yes Written Yes Demonstration Yes Sexual History: Social Info Question Answer Notes Have you ever had an STD Have you ever had an STD No Family History Social Info Question Answer Notes Substance Abuse Is there a family hi story of substance abuse No Mental illness Is there a family hi story of mental illness Yes sibling(s), depression Adult Health Maintenance- Social Info Question Answer Notes - Completed Yes Dental Visit Yearly Yes Completed 11/25/2020 Diabetic Retinal Eye Exam Yearly No Counseled Yes Date counseled 11/25/2020 Tetanus tetanus within the last 5 years Yes Mammogram > 40 Yearly Yes Pap in the last 3 yrs fo r 21-29 years of age? Yes Flu Shot Yearly Yes Health Literacy Screening Social Info Question Answer Notes How confident are you at dennis ling out medical forms by yourself? 2. Quite a bit Yes Date of Literacy Screening 11/25/2020 Pt. Score 2 Drug/Alcohol: Social Info Question Answer Notes - Did you have a drink containing alcohol i n the past year? Yes How often did you have a drink containing alcohol in the past year? Monthly or less (1 point) How often did you have six or more drinks on one occasion in the past year? Never (0 points) Points 1 Interpretation Negative [place] Drug Questionnaire Have you used dr ugs other than those for medical reasons in the past 12 months? No Tobacco Use 1 Social Info Question Answer Notes Smokeless Tobacco Tobacco use other than smoking No Exposed to second hand smoke Exposed to second hand sm robin No Do you smoke for age 13 and up Are you a: former smo ker How long has it been since you last smoked? 1-5 years Oriental Orthodox/Education Social Info Question Answer Notes Oriental Orthodox/Education Marital Status: Single Number of Adults in Household: 3 Number of Children in Household: 1 Oriental Orthodox: No Level of Education: Not finished College Primary director career services Yes son Health Care Proxy Yes son(s) Plan Of Treatment No Information Insurance Providers Payer Name Payer Address Payer Phone Subscriber Number Group Number Insured Name Patient Relationship to Insured Coverage Start Date Coverage End Date [employer] [address] [place] [id number] Shabana Mancini Self - patient is the insured Medical (General) History Medical History History ICD Code acid reflux Hiatal hernia atrial septal defect mitral valve prolapse Hypothyroidism Surgical History Surgery Date(Month/Year) tonsillectomy breast biopsy ankle surgery, right polyp removal cyst removal carpal tunnel release x2 Hospitalization History Reason Date(Month/Year) childbirth
--- OUTSIDE RECORDS SUMMARY | 2025-04-01 13:21 | XMS_ITS | Patient Health Record ---
Author Organization [facility] Address [address] [place] [address] Care Team Providers Care Pack Operator Name Role Phone Maddi Puckett Primary Care Provider MADDI PUCKETT Unavailable Unavailable Roberts, Criselda Unavailable [phone] Allergies No Known Allergies Results Component Value Reference Range Notes COVID-19 RAPID - [id number] Reviewed date:01/07/2025 03:44:54 PM Interpretation: Performing Lab: Notes/Report: COVID19 negative Influenza A/B - 34055 Reviewed date:01/07/2025 03:45:11 PM Interpretation: Performing Lab: Notes/Report: A negative B negative Rapid Strep (Strep A) -[id number] Reviewed date:01/07/2025 03:44:39 PM Interpretation: Performing Lab: Notes/Report: Strep positive Reason For Referral No Information Medications Medication [...] a day Section Notes: 10/01/20 11/10/22 PHQ9 10/01/20 11/10/22 PHQ9 07/10/2024 PHQ9 10/01/20 11/10/22 PHQ9 10/01/20 11/10/22 PHQ9 10/01/20 11/10/22 PHQ9 10/01/20 11/10/22 PHQ9 07/10/2024 PHQ9 10/01/20 11/10/22 PHQ9 07/10/2024 PHQ9 10/01/20 11/10/22 PHQ9 07/10/2024 PHQ9 10/01/20 11/10/22 PHQ9 07/10/2024 PHQ9 10/01/20 11/10/22 PHQ9 07/10/2024 PHQ9 10/01/20 11/10/22 PHQ9 07/10/2024 PHQ9 10/01/20 10/01/20 10/01/20 Problems Problem Type SNOMED Code ICD Code Onset Dates Problem Status W/U Status Risk Notes Problem Hypothyroidism (75227856) Hypothyroidism, unspecified type (E03.9) Active confirmed Problem Sinusitis (69158766) Sinusitis (J32.9) Active confirmed Problem Seasonal allergy (099189189) Seasonal allergies (J30.2) Active confirmed Problem Body mass index 40+ - morbidly obese (502676163) Body mass index 40.0-44.9, adult (Z68.41) Active confirmed Problem Body mass index 40+ - severely obese (856734612) Body mass index [BMI] 40.0-44.9, adult (Z68.41) Active confirmed Vital Signs Heart Rate 79 /min 02/12/2025 Temperature 98.4 degrees Fahrenheit 02/12/2025 Respiratory Rate 20 /min 02/12/2025 Blood pressure diastolic 70 mm Hg 02/12/2025 Oximetry 97 % 02/12/2025 Height-cm 160.02 cm 02/12/2025 Weight-kg 93.44 kg 02/12/2025 Height 63 in 02/12/2025 Blood pressure systolic 118 mm Hg 02/12/2025 Weight 206 lbs 02/12/2025 BMI 36.49 kg/m2 02/12/2025 Encounters Encounter Location Date Provider Diagnosis [facility] [address] [address] 07/23/2024 Maddi Puckett Acute contact dermatitis L25.9 [facility] [address] [place] [address], [place] [address] 01/14/2025 Maddi Puckett Acute otitis media, left H66.92 [facility] [address] [place] [address] 01/07/2025 Maddi Puckett Strep pharyngitis J02.0 ; Aching headache R51.9 ; Encounter for immunization Z23 and Immunization not carried out because of patient refusal Z28.21 [facility] [address] [place] [address] 12/05/2024 Criselda Roberts Sinusitis J32.9 and Bronchitis J40 [facility] [address] [place] [address] 07/10/2024 Maddirashaad Puckett Seasonal allergies J30.2 ; Nasal congestion R09.81 and Depression screen Z13.31 [facility] [address] [place] [address] 02/12/2025 Maddi Sdton Acute bronchitis J20.9 [facility] [address] [place] [address] 01/23/2025 Maddi Puckett Aching headache R51. 9 Assessments Encounter Date Diagnosis (ICD Code) Assessment Notes Treatment Notes Treatment Clinical Notes Section Notes 07/23/2024 Acute contact dermatitis (ICD-10 - L25.9) Steroid injection given. RTC if no improvement with treatment. 12/05/2024 Bronchitis (ICD-10 - J40) z alicia 12/05/2024 Sinusitis (ICD-10 - J32.9) depomedrol/deca dron im 07/10/2024 Seasonal allergies (ICD-10 - J30.2) 01/07/2025 Strep pharyngitis (ICD-10 - J02.0) Increase [...] Questions asked and answered; discharged to home. 02/12/2025 Acute bronchitis (ICD-10 - J20.9) Increase fluids, take medication as directed. RTC if no improvement with treatment. Questions asked and answered; discharged to home. 07/10/2024 Nasal congestion (ICD-10 - R09.81) 07/10/2024 Depression screen (ICD-10 - Z13.31) 01/07/2025 Encounter for immunization (ICD-10 - Z23) 01/07/2025 Immunization not carried out because of patient refusal (ICD-10 - Z28.21) 12/05/2024 Other Questions asked and answered; discharged to home. Plan Of Treatment No Information Medications Administered Medication Instructions Date of Administration Dosage Notes DEPO-Medrol 03/29/2024 [place] [address]/[id number] 3-10 pt tolerated well/instructed to wait 20 min DEPO-Medrol 07/23/2024 40 mg [id number] 3-01 Patient tolerated well. DEPO-Medrol 12/05/2024 40 mg ndc 19524-549 3-01 pt tolerated well/instructed to wait 20 min dexAMETHasone 10/01/2020 8 mg dexAMETHasone 03/29/2024 [place] [id number] 423-00 pt tolerated well/instructed to wait 20 min dexAMETHasone 07/23/2024 4 mg [id number] 423-00 Patient tolerated well. dexAMETHasone 12/05/2024 [place] [id number] 423-00 pt tolerated well/instructed to wait 20 min Ketorolac Tromethamine 01/07/2025 60 mg nd [id number] Patient tolerated well. Ketorolac Tromethamine 01/23/2025 60 mg nd [id number] tient tolerated well. Medical (General) History Medical History History ICD Code restless leg syndrome Surgical History Surgery Date(Month/Year) ankle surgery carpal tunnel release tonsillectomy
[2025-04-01 13:23] VITALS: BP 174/99; PULSE 85; RESP 16; O2SAT 100
--- NOTE | 2025-04-01 13:35 | XR_ITS ---
WS: [id number] Portable AP upright chest, 04/01/2025 Clinical Data: chest pain Comparison: Portable chest, 02/13/2025 Findings: No nodules, masses or effusions are seen. The heart is normal. The pulmonary vascularity is not increased. No pneumonia or pneumothorax is seen. Monitor leads are on the chest wall. XR/XR chest 1V portable [id number] Impression: Negative chest.
--- NOTE | 2025-04-01 13:48 | W.ED.ARRPALP ---
HPI - Arrhythmia/Palpitations General: Chief Complaint: Arrhythmia/Palpitations Stated Complaint: CP, Palpitations,dizziness Time Seen by Provider: 04/01/25 13:18 History of Present Illness: Patient is a 45-year-old female presents to the ED with chest pain, palpitations, shortness of breath, and chills. This started the night for last. She feels as if her heart is racing. Her chest discomfort is associated with the palpitations. She admits to stool, soft, not diarrhea 5 times a day. She admits to fatigue. She has not had any fevers. Her shortness of breath is associated with palpitations. She does drink caffeine such as cappuccino, however has not had any energy drinks. Associated symptoms: Deny nausea or vomiting Related Data Home Medications ?Medication ?Instructions ?Recorded ?Confirmed acetaminophen 500 mg capsule 500 mg PO Q6H PRN Pain 06/14/22 04/01/25 ropinirole 0.5 mg tablet 0.5 - 1 mg PO BEDTIME 06/14/22 04/01/25 loratadine 10 mg tablet 10 mg PO DAILY 04/01/25 04/01/25 ondansetron HCl 4 mg tablet 4 mg PO Q4H PRN Nausea And Vomiting 04/01/25 04/01/25 zolpidem 12.5 mg tablet,extended 12.5 mg PO BEDTIME 04/01/25 04/01/25 release,multiphase Previous Rx's ?Medication ?Instructions ?Recorded albuterol sulfate 90 mcg/actuation 2 inh inhalation Q6H PRN shortness 02/13/25 aerosol inhaler of breath or wheezing #8 grams permethrin 5 % topical cream 1 applic topical Q14D 2 doses #60 02/24/25 (Elimite) grams Allergies Allergy/AdvReac Type Severity Reaction Status Date / Time amoxicillin Allergy rash Verified 02/08/25 13:37 Review of Systems General: Reports: 10 or more systems reviewed and unremarkable except in HPI and below Const: Denies: fever(s), chills or fatigue Eyes: Denies: change in vision ENMT: Denies: throat pain, ear or mastoid pain or nasal discharge Card: Reports: chest pain and palpitations; Denies: swelling of feet/ankles or lightheadedness Resp: Reports: dyspnea, productive cough and wheezing GI: Reports: change in bowel habits; Denies: abdominal pain, nausea, vomiting, diarrhea or constipation : Denies: flank pain, difficulty voiding, dysuria or urinary frequency Musc: Denies: neck pain, back pain or joint pain Skin/Breast: Denies: rash Neuro: Denies: headache(s), numbness in extremities or weakness in extremities PFSH ED PFSH: Medical History (Updated 04/01/25 @ 15:15 by AZRA Romero) Mitral valve prolapse Hx of renal calculi Acid reflux Hiatal hernia Surgical History Hx of breast biopsy Hx of tonsillectomy History of carpal tunnel release of both wrists History of esophagogastroduodenoscopy (EGD) Family History Father Cancer bladder, prostate Hypertension Diabetes Sister Cancer breast Mother Stroke Social History Smoking and tobacco/nicotine status: former use of tobacco/nicotine Alcohol intake: current Alcohol intake frequency: holidays/special occasions only Substance/Drug Use: never Adopted: No Caregiver/support person: No Lives independently: No Household members: significant other and family Housing: House Marital status: Single Number of children: 1 service: No Current occupational status: unemployed Current gender identity: Female Physical Exam Const: COMMON NORMALS: no acute distress, patient oriented x3 and healthy appearing HENMT: COMMON NORMALS: normocephalic and atraumatic HEAD & SCALP: normocephalic and atraumatic Neck/C-Spine: COMMON NORMALS: full ROM and supple Chest: COMMONS NORMALS: normal inspection of the chest and normal palpation of entire chest wall Resp: COMMON NORMALS: normal respiratory effort Cardio: COMMON NORMALS: regular rate RATE: regular rate GI: COMMON NORMALS: Normal to inspection, nondistended, normoactive bowel sounds present, Soft to palpation, non-tender and No hepatosplenomegaly present PALPATION: Yes Soft to palpation and Yes No hepatosplenomegaly present : COMMON NORMALS: Yes no CVA tenderness BLADDER/KIDNEY EXAM: Yes no CVA tenderness Back/Pelvis: COMMON NORMALS: no CVA tenderness and thoracic and lumbar spine normal to inspection Extremity: COMMON NORMALS: full ROM Neuro: COMMON NORMALS: patient oriented x3, moves all extremities and no focal motor deficits Psych: COMMON NORMALS: mental status grossly normal, Normal thought process present and cooperative THOUGHT PROCESS: Normal thought process present Course Vital Signs: Vital signs: Vital Signs Temperature 98.1 F 04/01/25 13:15 Pulse Rate 81 04/01/25 15:18 Respiratory Rate 16 04/01/25 13:23 Blood Pressure 140/92 04/01/25 15:18 Pulse Oximetry 100 04/01/25 15:18 Oxygen Delivery Me thod Room Air 04/01/25 13:23 MDM - Arrhythmia/Palpitations Medical Decision Making Patient is a 45-year-old female with review of systems positive. This started 2 nights ago with palpitations. She has not been noted to have a rhythm of sinus tachycardia or rhythm over 90s on monitor. EKG shows normal sinus rhythm without ST segment elevation. She does have the chills, chest pain, palpitations, shortness of breath, and multiple stools. Will work her out up for cardiac rule out. Initial troponin is 7. Medical Records I reviewed the patient's medical records. Lab Data I reviewed the patient's lab results. 04/01/25 13:06 04/01/25 13:06 Radiology Impressions Chest X-Ray 04/01/25 13:35 Impression: Negative chest. Laboratory Results WBC 4.98 10^3/uL (3.29-11.43) 04/01/25 13:06 RBC 4.84 10^6/uL (3.85-5.65) 04/01/25 13:06 Hgb 11.70 g/dL (11.27-16.99) 04/01/25 13:06 Hct 38.9 % (36-47) 04/01/25 13:06 MCV 80.4 fl (85-98) L 04/01/25 13:06 MCH 24.2 pg (27-33) L 04/01/25 13:06 MCHC 30.1 g/dL (30-55) 04/01/25 13:06 RDW 14.9 % (12.1-15.1) 04/01/25 13:06 Plt Count 279 10^3/cmm (157-399) 04/01/25 13:06 MPV 10.5 fL (7.4-10.4) H 04/01/25 13:06 Neut % (Auto) 59.3 % 04/01/25 13:06 Lymph % (Auto) 29.9 % 04/01/25 13:06 [place] % (Auto) 8.0 % 04/01/25 13:06 Eos % (Auto) 2.0 % 04/01/25 13:06 Baso % (Auto) 0.6 % 04/01/25 13:06 Neut # (Auto) 2.95 10^3/uL (1.8-7.7) 04/01/25 13:06 Lymph # (Auto) 1.5 10^3/uL (0.8-4.8) 04/01/25 13:06 [place] # (Auto) 0.4 10^3/uL (0.2-0.9) 04/01/25 13:06 Eos # (Auto) 0.1 10^3/uL (0.0-0.8) 04/01/25 13:06 Baso # (Auto) 0.0 10^3/uL (0.0-0.1) 04/01/25 13:06 Nucleated RBC % (auto) 0 % 04/01/25 13:06 Nucleated RBCs # 0.0 /100WBC 04/01/25 13:06 D-Dimer 0.31 ug/mLFEU (0-0.59) 04/01/25 13:06 Sodium 139 mmol/L (136-145) 04/01/25 13:06 Potassium 4.3 mmol/L (3.5-5.1) 04/01/25 13:06 Chloride 104 mmol/L (98-107) 04/01/25 13:06 Carbon Dioxide 23 mmol/L (22-29) 04/01/25 13:06 Anion Gap 16.3 (5-19) 04/01/25 13:06 BUN 12 mg/dL (6-20) 04/01/25 13:06 Creatinine 0.7 mg/dL (0.5-0.9) 04/01/25 13:06 GFR Calculation 89.7 mL/min (90-130) L 04/01/25 13:06 Glucose 93 mg/dL (65-115) 04/01/25 13:06 Calculated Osmolality 287 mOsm/kg (285-295) 04/01/25 13:06 Calcium 9.2 mg/dL (8.5-10.5) 04/01/25 13:06 Magnesium 2.1 mg/dL (1.7-2.3) 04/01/25 13:06 Total Bilirubin 0.2 mg/dL (0.15-1.2) 04/01/25 13:06 AST 26 U/L (0-32) 04/01/25 13:06 ALT 29 U/L (0-33) 04/01/25 13:06 Alkaline Phosphatase 91 U/L (35-105) 04/01/25 13:06 Troponin T Baseline 7 ng/L (0-10) 04/01/25 13:06 NT-Pro-B Natriuret Pep 88 pg/mL (0-125) 04/01/25 13:06 Total Protein 7.1 g/dL (6.6-8.7) 04/01/25 13:06 Albumin 4.5 g/dL (3.5-5.2) 04/01/25 13:06 Globulin 2.6 g/dL (1.3-4.6) 04/01/25 13:06 Lipase 59 U/L (13-60) 04/01/25 13:06 TSH 3.32 uIU/mL (0.27-4.20) 04/01/25 13:06 Influenza A (PCR) Negative (Negative) 04/01/25 14:03 Influenza Type B (PCR) Negative (Negative) 04/01/25 14:03 RSV (PCR) Negative (Negative) 04/01/25 14:03 SARS-CoV-2 (PCR) Negative (Negative) 04/01/25 14:03 XR interpretation done by ED provider, pending radiology final review EKG Data EKG 1: Interpretation: normal sinus rhythm, normal axis, isoelectric ST segments Other EKG comments: Chest X-Ray 04/01/25 13:35 Impression: Negative chest. EKG 2: Interpretation: Normal sinus rhythm, normal axis, isoelectric ST segments Other EKG comments: Chest X-Ray 04/01/25 13:35 Impression: Negative chest. Discharge Plan Discharge Patient Disposition: Home Clinical Impression: Palpitations, Anxiety, Non-cardiac chest pain Condition: Stable Prescriptions: No Action ropinirole 0.5 mg tablet 0.5 - 1 mg PO BEDTIME acetaminophen 500 mg capsule 500 mg PO Q6H PRN (Reason: Pain) albuterol sulfate 90 mcg/actuation HFA aerosol inhaler 2 inh INHALATION Q6H PRN (Reason: shortness of breath or wheezing) Qty: 8 0RF permethrin [Elimite] 5 % cream 1 applic topical Q14D Qty: 60 0RF Rx Instructions: apply second treatment 14 days after first treatment if live lice remain ondansetron HCl 4 mg tablet 4 mg PO Q4H PRN (Reason: Nausea And Vomiting) loratadine 10 mg tablet 10 mg PO DAILY zolpidem 12.5 mg tablet,ext release multiphase 12.5 mg PO BEDTIME Discharge Orders: Discharge ED (Routine); Ordered 04/01/25 Ordered By: Linda Lala Referrals: Jose Fulton MD [Primary Care Provider, Internal Medicine] Patient Instructions: Anxiety (ED), Patient Portal & [place] Instructions Activity Restrictions/Additional Instructions: - Increase noncaffeinated beverage intake - Off work today - return to ED if you have worsening symptoms, Fever greater than 100.4 Thank you for choosing [facility] for your healthcare needs today. You have been screened and evaluated and felt safe for discharge. Health conditions do change or evolve sometimes and as such it is important that you follow up with your Primary Doctor to be re checked, 3-5 days is a general good time frame for follow up. You are always welcome to return to the ED for re assessment if your symptoms are worsening or you have new concerns Stand Alone Forms: Work/School Release Print Language: Citizen Of [place] Coding Level of Care Code ED Wringer Operator for Stephany Sanders
[2025-04-01 13:53] LABS: Hematocrit 38.9 % (36-47); Hemoglobin 11.70 g/dL (11.27-16.99); Mean Corpuscular HGB Conc 30.1 g/dL (30-55); Mean Corpuscular Hemoglobin 24.2 pg (27-33); Mean Corpuscular Volume 80.4 fl (85-98); Nucleated Red Blood Cells % 0 %; Platelet Count 279 10^3/cmm (157-399); Red Blood Count 4.84 10^6/uL (3.85-5.65); White Blood Count 4.98 10^3/uL (3.29-11.43)
[2025-04-01 14:11] LABS: Troponin(5th) Baseline 7 ng/L (0-10)
[2025-04-01 14:26] LABS: Alanine Aminotransferase 29 U/L (0-33); Albumin Level 4.5 g/dL (3.5-5.2); Alkaline Phosphatase 91 U/L (35-105); Anion Gap 16.3 (5-19); Aspartate Amino Transferase 26 U/L (0-32); Blood Urea Nitrogen 12 mg/dL (6-20); Calcium 9.2 mg/dL (8.5-10.5); Carbon Dioxide 23 mmol/L (22-29); Chloride 104 mmol/L (98-107); Creatinine Clr Calc Pharmacy 106.2269; Globulin 2.6 g/dL (1.3-4.6); Glucose 93 mg/dL (65-115); Lipase 59 U/L (13-60); Magnesium 2.1 mg/dL (1.7-2.3); NT Pro B Type Natriuretic Pept 88 pg/mL (0-125); Osmolality Calculated 287 mOsm/kg (285-295); Potassium 4.3 mmol/L (3.5-5.1); Sodium 139 mmol/L (136-145); Thyroid Stimulating Hormone 3.32 uIU/mL (0.27-4.20); Total Protein 7.1 g/dL (6.6-8.7)
--- NOTE | 2025-04-01 14:35 | ECG_ITS ---
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 Measurements Intervals [place] Rate: 76 P: 23 MO: 143 QRS: 19 QRSD: 79 T: 27 QT: 406 QTc: 459 Interpretive Statements SINUS RHYTHM Compared to ECG 04/01/2025 13:28:00 No significant changes Electronically Signed On 04-03-2025 17:17:34 ACCOUNTING METHODS ANALYST by Umberto Tomlin M.D. [email or web address]
[2025-04-01 14:52] LABS: Respiratory Syncytial Virus Ce NEGATIVE (Negative); SARS-CoV-2 PCR NEGATIVE (Negative)
[2025-04-01 15:18] VITALS: BP 140/92; PULSE 81; O2SAT 100
[2025-04-01 16:38] VITALS: BP 151/105; PULSE 87; O2SAT 98
== END 2025-04-01 16:39 | disposition home or self-care (01) ==
PROVIDERS: Emergency Provider Physician Assistant; PCP Internal Medicine
DX: R00.2 Palpitations (principal); F41.9 Anxiety disorder, unspecified; R07.89 Other chest pain; Z11.52 Encounter for screening for COVID-19; Z87.891 Personal history of nicotine dependence
CPT/HCPCS: 71045; 80053; 83690; 83735; 83880; 84443; 84484; 85025; 85378; 87637; 93005; 99285; J9999